=== PATIENT | female | born 1970 | race Two or more races ===

== ENCOUNTER 2016-07-11 23:59 | Inpatient (IN) | payer MEDICAID ==
[~2016-07-11] VITALS: Ht 147.3 cm; Wt 47.6 kg
[2016-07-12] VITALS (9 sets, daily range): BP systolic 105–120; BP diastolic 48–66
[2016-07-12] MEDS ORDERED: Solu-MEDROL 125mg Inj IVP ONE (00:30)
[2016-07-12] MEDS ORDERED: NS 1000ml 1,400 ML IVLG ONE (00:30)
[2016-07-12] MEDS ORDERED: Ipratropium 0.02% Inh Soln 2.5ml UD HHN ONE (00:30)
[2016-07-12] MEDS ORDERED: Albuterol ud Inhalation HHN ONE (00:30)
--- NOTE | 2016-07-12 00:33 | Emergency Room Report ---
History of Present Illness General Chief Complaint: Dyspnea/Respdistress Source: Patient Present Illness HPI Is a 45-year-old female with history of hypothyroidism. She presents with a cough and shortness of breath. Onset for last 8 days. fever in the last 2 days. Now worsening. Coughing is productive of sputum, whitish in nature. Worse with exertion and inspiration. Worse with lying flat. Nothing made it better. Never had this problem before. Allergies: Coded Allergies: No Known Allergies (Unverified , 07/12/16) Patient History Past Medical History: see triage record, old chart reviewed Past Surgical History: none Pertinent Family History: none Social History: Denies: smoking Now: No Immunizations: other Reviewed Nursing Documentation: PMH: Agreed, PSxH: Agreed Review of Systems Constitutional: Reports: fever, malaise, weakness Eye: Denies: blurred vision, eye pain ENT: Denies: ear pain, nose congestion, throat swelling Respiratory: Reports: cough, shortness of breath Cardiovascular: Denies: chest pain, palpitations Gastrointestinal: Denies: abdominal pain, diarrhea, nausea, vomiting Musculoskeletal: Denies: back pain, joint pain Skin: Denies: rash Neurological: Denies: headache, numbness Endocrine: Denies: increased thirst, increased urine Hematologic/Lymphatic: Denies: easy bruising All Other Systems: negative except mentioned in HPI Physical Exam Vital Signs Date Time Temp Pulse Resp B/P Pulse Ox O2 Delivery O2 Flow Rate FiO2 07/12/16 00:04 99.9 120 18 104/48 89 Room Air vitals with fever and hypoxia Sp02 EP Interpretation: abnormal General Appearance: moderate distress, thin Head: normocephalic, atraumatic Eyes: bilateral eye EOMI, bilateral eye PERRL ENT: hearing grossly normal, normal pharynx Neck: full range of motion, supple, no meningismus Respiratory: chest non-tender, decreased breath sounds, accessory muscle use, crackles, wheezing Cardiovascular #1: regular rate, rhythm, no murmur Gastrointestinal: normal bowel sounds, non tender, no mass, no organomegaly, no bruit, non-distended Musculoskeletal: back normal, gait/station normal, normal range of motion Neurologic: alert, oriented x3 Psychiatric: mood/affect normal Skin: warm/dry Procedures Critical Care Time Critical Care Time Critical care is mandated in this patient who presented with sepsis from pneumonia. Patient require my urgent intervention to attenuate the risks of metabolic collapse which may lead to cardiovascular collapse and . Critical care time is 35 minutes excluding any reportable procedure. Critical care time included evaluation, multiple reevaluation, looking at old charts, interpreting laboratory and diagnostic data, discussing case with patient and family and consultants, and charting. Medical Decision Making Diagnostic Impression: Primary Impression: Acute respiratory failure with hypoxemia Additional Impressions: Sepsis Qualified Codes: A41.9 - Sepsis, unspecified organism Pneumonia Qualified Codes: J18.9 - Pneumonia, unspecified organism ER Course She with respiratory distress secondary to sepsis from pneumonia. Clinical course concerning for influenza-like illness complicated by pneumonia. I also cover for MRSA with vancomycin. Patient feeling better now. We'll admit for IV antibiotics and monitoring. Laboratory Tests Test 07/12/16 00:39 07/12/16 01:30 White Blood Count 21.2 K/UL (4.8-10.8) H Red Blood Count 3.95 M/UL (4.20-5.40) L Hemoglobin 11.5 G/DL (12.0-16.0) L Hematocrit 34.2 % (37.0-47.0) L Mean Corpuscular Volume 87 FL (80-99) Mean Corpuscular Hemoglobin 29.2 PG (27.0-31.0) Mean Corpuscular Hemoglobin Concent 33.7 G/DL (32.0-36.0) Red Cell Distribution Width 14.2 % (11.6-14.8) Platelet Count 299 K/UL (150-450) Mean Platelet Volume 7.1 FL (6.5-10.1) Neutrophils (%) (Auto) % (45.0-75.0) Lymphocytes (%) (Auto) % (20.0-45.0) Monocytes (%) (Auto) % (1.0-10.0) Eosinophils (%) (Auto) % (0.0-3.0) Basophils (%) (Auto) % (0.0-2.0) Neutrophils % (Manual) Pending Lymphocytes % (Manual) Pending Platelet Estimate Pending Platelet Morphology Pending Prothrombin Time 10.1 SEC (9.30-11.50) Prothromb Time International Ratio 1.0 (0.9-1.1) Activated Partial Thromboplast Time 26 SEC (23-33) Sodium Level 139 mEQ/L (135-145) Potassium Level 3.3 mEQ/L (3.4-4.9) L Chloride Level 99 mEQ/L (98-107) Carbon Dioxide Level 22 mEQ/L (20-30) Anion Gap 18 (5-15) H Blood Urea Nitrogen 11 mg/dL (7-23) Creatinine 0.6 mg/dL (0.5-0.9) Estimat Glomerular Filtration Rate > 60 mL/min (>60) Glucose Level 144 mg/dL (74-106) H Lactic Acid Level 0.90 mmol/L (0.66-2.22) Calcium Level 8.4 mg/dL (8.6-10.2) L Total Bilirubin 0.4 mg/dL (0.0-1.2) Aspartate Amino Transf (AST/SGOT) 39 U/L (5-40) Alanine Aminotransferase (ALT/SGPT) 40 U/L (3-33) H Alkaline Phosphatase 150 U/L (35-104) H Troponin I < 0.30 ng/mL (<=0.30) Total Protein 7.0 g/dL (6.6-8.7) Albumin 2.8 g/dL (3.5-5.2) L Globulin 4.2 g/dL Albumin/Globulin Ratio 0.6 (1.0-2.7) L Urine Color Pale yellow Urine Appearance Clear Urine pH 6.5 (4.5-8.0) Urine Specific [place] 1.005 (1.005-1.035) Urine Protein Negative (NEGATIVE) Urine Glucose (UA) Negative (NEGATIVE) Urine Ketones 3+ (NEGATIVE) H Urine Occult Blood Negative (NEGATIVE) Urine Nitrite Negative (NEGATIVE) Urine Bilirubin Negative (NEGATIVE) Urine Urobilinogen Normal MG/DL (0.0-1.0) Urine Leukocyte Esterase Negative (NEGATIVE) Lab Results Impression labs with leukocytosis. EKG Diagnostic Results Rate: normal, tachycardiac Rhythm: NSR ST Segments: no acute changes Rhythm Strip Diag. Results EP Interpretation: yes Rate: 100 Rhythm: NSR, no PVC's, no ectopy Chest X-Ray Diagnostic Results EP Interpretation: Yes Findings: no effusion, no pneumothorax, other - Multilobar infiltritrates Number of Views: 1 Last Vital Signs Date Time Temp Pulse Resp B/P Pulse Ox O2 Delivery O2 Flow Rate FiO2 1/27/17 00:04 99.9 120 18 104/48 89 Room Air Status: improved Disposition: ADMITTED INPATIENT Condition: Serious ULISES REESE M.D. Jul 12, 2016 00:33
[2016-07-12 01:05] LABS: MEAN CORPUSCULAR HEMOGLOBIN 29.2 PG (27.0-31.0); MEAN CORPUSCULAR HGB CONC 33.7 G/DL (32.0-36.0); MEAN CORPUSCULAR VOLUME 87 FL (80-99); MEAN PLATELET VOLUME 7.1 FL (6.5-10.1); PLATELET COUNT 299 K/UL (150-450); RED BLOOD COUNT 3.95 M/UL (4.20-5.40); RED CELL DISTRIBUTION WIDTH 14.2 % (11.6-14.8); WHITE BLOOD COUNT 21.2 K/UL (4.8-10.8)
[2016-07-12 01:13] LABS: PROTHROMBIN TIME 10.1 SEC (9.30-11.50)
[2016-07-12 01:20] LABS: TROPONIN I < 0.30 ng/mL (<=0.30)
[2016-07-12 01:23] LABS: ALANINE AMINOTRANSFERASE 40 U/L (3-33); ALBUMIN/GLOBULIN RATIO 0.6 (1.0-2.7); ANION GAP 18 (5-15); ASPARTATE AMINO TRANSFERASE 39 U/L (5-40); CALCIUM 8.4 mg/dL (8.6-10.2); CARBON DIOXIDE 22 mEQ/L (20-30); CHLORIDE 99 mEQ/L (98-107); CREATININE 0.6 mg/dL (0.5-0.9); GLOMERULAR FILTRATION RATE > 60 mL/min (>60); HEMOLYSIS 3; POTASSIUM 3.3 mEQ/L (3.4-4.9); SODIUM 139 mEQ/L (135-145)
[2016-07-12] MEDS ORDERED: Vancomycin 1 GM in NS 275 ML IVPB ONE (01:45)
[2016-07-12] MEDS ORDERED: cefTRIAXone 1 GM in NS 55 ML IVPB ONE (01:45)
[2016-07-12] MEDS ORDERED: Azithromycin 250mg tab ORAL ONE (01:45)
[2016-07-12 01:49] LABS: APPEARANCE,URINE CLEAR; KETONES,URINE 3+ (NEGATIVE); LEUKOCYTE ESTERASE ,URINE NEGATIVE (NEGATIVE); NITRITE,URINE NEGATIVE (NEGATIVE); PH,URINE 6.5 (4.5-8.0); UROBILINOGEN,URINE NORMAL MG/DL (0.0-1.0)
[2016-07-12 01:50] LABS: PROTEIN,URINE NEGATIVE (NEGATIVE)
[2016-07-12] MEDS ORDERED: Vancomycin 1gm inj IVPB ONE (03:29)
[2016-07-12] MEDS ORDERED: LEVOTHYROXINE100 MCG ORAL (04:01)
[2016-07-12 05:08] LABS: BAND NEUTROPHILS % (MANUAL) 5 % (0-8); LYMPHOCYTES % (MANUAL) 10 % (20-45); NEUTROPHILS % (MANUAL) 78 % (45-75); TOTAL CELLS COUNTED 100
[2016-07-12 05:09] LABS: BASOPHILS % (MANUAL) 0 % (0-2); EOSINOPHILS % (MANUAL) 0 % (0-3); PLATELET ESTIMATE ADEQUATE; PLATELET MORPHOLOGY NORMAL
[2016-07-12] MEDS ORDERED: Miralax 17gm pkt ORAL PRN (06:00)
[2016-07-12] MEDS ORDERED: Nitroglycerin Subl 0.4mg tab (Bottle Of 25) SL PRN (06:00)
[2016-07-12] MEDS ORDERED: DuoNeb 0.5-3(2.5)mg/3ml neb HHN PRN (06:00)
[2016-07-12] MEDS ORDERED: Mylanta II UD 30ml ORAL PRN (06:00)
[2016-07-12] MEDS: Promethazine/Codeine 5ml UD ORAL PRN (08:30)
[2016-07-12] MEDS: Heparin 5000 units/ml inj SUBQ SCH ×2 (08:34→20:53)
[2016-07-12] MEDS: Cefepime HCl 1 GM in D5W 55 ML IV SCH ×2 (08:35→20:54)
--- NOTE | 2016-07-12 13:56 | Infectious Diseases Prog Note ---
Assessment/Plan Problems: (1) CAP (community acquired pneumonia) Assessment & Plan: failed outpatient treatment, with levaquin and zithromax, will start vancomycin and zosyn, and screen for influenza (2) Sepsis Assessment & Plan: due to pneumonia, will start vancomycin and zosyn empirically for now, and send blood culture (3) Diabetes mellitus Assessment & Plan: recommend tight glycemic control to keep blood glucose between 80-120 Subjective Allergies: Coded Allergies: No Known Allergies (Unverified , 07/12/16) Objective Vital Signs Last 24 Hour Vital Signs Date Time Temp Pulse Resp B/P Pulse Ox O2 Delivery O2 Flow Rate FiO2 07/12/16 11:30 97.7 114 20 116/64 93 07/12/16 11:20 102 18 89 Nasal Cannula 3.0 32 07/12/16 11:20 104 18 94 Nasal Cannula 3.0 32 07/12/16 08:25 107 18 91 Nasal Cannula 3.0 32 07/12/16 08:25 107 18 93 Nasal Cannula 3.0 32 07/12/16 08:16 97.7 108 18 109/64 94 Room Air 07/12/16 04:40 97.7 105 18 113/65 92 Nasal Cannula 2.0 07/12/16 04:05 98.2 99 16 120/57 100 Nasal Cannula 3.0 07/12/16 04:00 98.5 99 16 120/57 100 Nasal Cannula 3.0 07/12/16 04:00 97.7 105 18 113/65 92 Nasal Cannula 2.0 07/12/16 03:00 98 18 118/55 99 Nasal Cannula 3.0 07/12/16 02:00 98.2 105 18 105/50 98 Nasal Cannula 3.0 07/12/16 00:49 116 19 99 Nasal Cannula 2.0 07/12/16 00:39 116 26 96 Nasal Cannula 2.0 07/12/16 00:38 115 26 Nasal Cannula 2.0 07/12/16 00:15 110 18 Nasal Cannula 3.0 07/12/16 00:15 98.2 110 18 110/48 99 Nasal Cannula 3.0 07/12/16 00:04 99.9 120 18 104/48 89 Room Air Height (Feet): 4 Height (Inches): 10.00 Weight (Pounds): 105 Laboratory Tests Test 07/12/16 00:39 07/12/16 01:30 07/12/16 09:00 White Blood Count 21.2 K/UL (4.8-10.8) H Red Blood Count 3.95 M/UL (4.20-5.40) L Hemoglobin 11.5 G/DL (12.0-16.0) L Hematocrit 34.2 % (37.0-47.0) L Mean Corpuscular Volume 87 FL (80-99) Mean Corpuscular Hemoglobin 29.2 PG (27.0-31.0) Mean Corpuscular Hemoglobin Concent 33.7 G/DL (32.0-36.0) Red Cell Distribution Width 14.2 % (11.6-14.8) Platelet Count 299 K/UL (150-450) Mean Platelet Volume 7.1 FL (6.5-10.1) Neutrophils (%) (Auto) % (45.0-75.0) Lymphocytes (%) (Auto) % (20.0-45.0) Monocytes (%) (Auto) % (1.0-10.0) Eosinophils (%) (Auto) % (0.0-3.0) Basophils (%) (Auto) % (0.0-2.0) Differential Total Cells Counted 100 Neutrophils % (Manual) 78 % (45-75) H Lymphocytes % (Manual) 10 % (20-45) L Monocytes % (Manual) 7 % (1-10) Eosinophils % (Manual) 0 % (0-3) Basophils % (Manual) 0 % (0-2) Band Neutrophils 5 % (0-8) Platelet Estimate Adequate Platelet Morphology Normal Red Blood Cell Morphology Normal Prothrombin Time 10.1 SEC (9.30-11.50) Prothromb Time International Ratio 1.0 (0.9-1.1) Activated Partial Thromboplast Time 26 SEC (23-33) Sodium Level 139 mEQ/L (135-145) Potassium Level 3.3 mEQ/L (3.4-4.9) L Chloride Level 99 mEQ/L (98-107) Carbon Dioxide Level 22 mEQ/L (20-30) Anion Gap 18 (5-15) H Blood Urea Nitrogen 11 mg/dL (7-23) Creatinine 0.6 mg/dL (0.5-0.9) Estimat Glomerular Filtration Rate > 60 mL/min (>60) Glucose Level 144 mg/dL (74-106) H Lactic Acid Level 0.90 mmol/L (0.66-2.22) Calcium Level 8.4 mg/dL (8.6-10.2) L Total Bilirubin 0.4 mg/dL (0.0-1.2) Aspartate Amino Transf (AST/SGOT) 39 U/L (5-40) Alanine Aminotransferase (ALT/SGPT) 40 U/L (3-33) H Alkaline Phosphatase 150 U/L (35-104) H Troponin I < 0.30 ng/mL (<=0.30) Total Protein 7.0 g/dL (6.6-8.7) Albumin 2.8 g/dL (3.5-5.2) L Globulin 4.2 g/dL Albumin/Globulin Ratio 0.6 (1.0-2.7) L Urine Color Pale yellow Urine Appearance Clear Urine pH 6.5 (4.5-8.0) Urine Specific [place] 1.005 (1.005-1.035) Urine Protein Negative (NEGATIVE) Urine Glucose (UA) Negative (NEGATIVE) Urine Ketones 3+ (NEGATIVE) H Urine Occult Blood Negative (NEGATIVE) Urine Nitrite Negative (NEGATIVE) Urine Bilirubin Negative (NEGATIVE) Urine Urobilinogen Normal MG/DL (0.0-1.0) Urine Leukocyte Esterase Negative (NEGATIVE) Urine Legionella Antigen Pending Current Medications Medications (Trade) Dose Ordered Sig/Richar Route PRN Reason Start Time Stop Time Status Last Admin Dose Admin Acetaminophen (Tylenol) 650 mg Q4H PRN ORAL fever 07/12/16 06:00 08/11/16 05:59 Al Hydroxide/Mg Hydroxide (Mylanta II) 30 ml Q6H PRN ORAL dyspepsia 07/12/16 06:00 08/11/16 05:59 Albuterol/ Ipratropium 3 ml 3 ml Q4H PRN HHN Shortness of Breath 07/12/16 06:00 07/17/16 05:59 Cefepime HCl/ Dextrose (Maxipime/D5W) 55 ml @ 110 mls/hr EVERY 12 HOURS IV 07/12/16 09:00 07/19/16 08:59 07/12/16 08:35 Heparin Sodium (Porcine) (Heparin 5000 units/ml) 5,000 units EVERY 12 HOURS SUBQ 07/12/16 09:00 08/11/16 08:59 07/12/16 08:34 Levothyroxine Sodium (Synthroid) 100 mcg DAILY@0630 ORAL 07/12/16 06:30 08/11/16 06:29 07/12/16 06:26 Nitroglycerin (Ntg) 0.4 mg Q5M PRN SL Prn Chest Pain 07/12/16 06:00 08/11/16 05:59 Ondansetron HCl (Zofran) 4 mg Q6H PRN IVP Nausea & Vomiting 07/12/16 06:00 08/11/16 05:59 Polyethylene Glycol (Miralax) 17 gm DAILYPRN PRN ORAL Constipation 07/12/16 06:00 08/11/16 05:59 Promethazine HCl/ Codeine (Phenergan with Codeine) 5 ml Q4H PRN ORAL For Cough 07/12/16 06:00 08/11/16 05:59 07/12/16 08:30 Temazepam (Restoril) 15 mg HSPRN PRN ORAL Insomnia 07/12/16 06:00 07/19/16 05:59 Italo Nation M.D. Jul 12, 2016 13:56
--- NOTE | 2016-07-12 14:56 | Consultation ---
History of Present Illness General Date patient seen: Jul 12, 2016 Chief Complaint: Dyspnea/Respdistress Referring physician: Dr. Horner Reason for Consultation: dyspnea Present Illness HPI 45-year-old female with history of hypothyroidism presents with a cough and shortness of breath. Onset for last 8 days an fever in the last 2 days. Coughing is productive of whitish sputum, whitish in nature. Pt had a cxr in ER showing LLL infiltrate therefore she was admitted for further w/u. Allergies: Coded Allergies: No Known Allergies (Unverified , 07/12/16) Medication History Scheduled Levothyroxine Sodium* (Levothyroxine Sodium*), 100 MCG ORAL DAILY, (Reported) Patient History Healthcare decision maker Resuscitation status Full Code Advanced Directive on File Review of Systems Constitutional: Reports: no symptoms Eye: Reports: no symptoms ENT: Reports: no symptoms Respiratory: Reports: no symptoms Physical Exam General Appearance: WD/WN Lines, tubes and drains: peripheral HEENT: normocephalic, atraumatic Neck: non-tender, normal alignment Respiratory/Chest: chest wall non-tender, lungs clear Abdomen: normal bowel sounds, non tender, hyperactive bowel sounds Last 24 Hour Vital Signs Date Time Temp Pulse Resp B/P Pulse Ox O2 Delivery O2 Flow Rate FiO2 07/12/16 11:30 97.7 114 20 116/64 93 07/12/16 11:20 102 18 89 Nasal Cannula 3.0 32 07/12/16 11:20 104 18 94 Nasal Cannula 3.0 32 07/12/16 08:25 107 18 91 Nasal Cannula 3.0 32 07/12/16 08:25 107 18 93 Nasal Cannula 3.0 32 07/12/16 08:16 97.7 108 18 109/64 94 Room Air 07/12/16 04:40 97.7 105 18 113/65 92 Nasal Cannula 2.0 07/12/16 04:05 98.2 99 16 120/57 100 Nasal Cannula 3.0 07/12/16 04:00 98.5 99 16 120/57 100 Nasal Cannula 3.0 07/12/16 04:00 97.7 105 18 113/65 92 Nasal Cannula 2.0 07/12/16 03:00 98 18 118/55 99 Nasal Cannula 3.0 07/12/16 02:00 98.2 105 18 105/50 98 Nasal Cannula 3.0 07/12/16 00:49 116 19 99 Nasal Cannula 2.0 07/12/16 00:39 116 26 96 Nasal Cannula 2.0 07/12/16 00:38 115 26 Nasal Cannula 2.0 07/12/16 00:15 110 18 Nasal Cannula 3.0 07/12/16 00:15 98.2 110 18 110/48 99 Nasal Cannula 3.0 07/12/16 00:04 99.9 120 18 104/48 89 Room Air Intake and Output 07/11/16 07/12/16 19:00 07:00 Intake Total 1455 ml Output Total 0 ml Balance 1455 ml IV Total 1455 ml Output Urine Total 0 ml # Voids 1 Laboratory Tests Test 07/12/16 00:39 07/12/16 01:30 07/12/16 09:00 White Blood Count 21.2 K/UL (4.8-10.8) H Red Blood Count 3.95 M/UL (4.20-5.40) L Hemoglobin 11.5 G/DL (12.0-16.0) L Hematocrit 34.2 % (37.0-47.0) L Mean Corpuscular Volume 87 FL (80-99) Mean Corpuscular Hemoglobin 29.2 PG (27.0-31.0) Mean Corpuscular Hemoglobin Concent 33.7 G/DL (32.0-36.0) Red Cell Distribution Width 14.2 % (11.6-14.8) Platelet Count 299 K/UL (150-450) Mean Platelet Volume 7.1 FL (6.5-10.1) Neutrophils (%) (Auto) % (45.0-75.0) Lymphocytes (%) (Auto) % (20.0-45.0) Monocytes (%) (Auto) % (1.0-10.0) Eosinophils (%) (Auto) % (0.0-3.0) Basophils (%) (Auto) % (0.0-2.0) Differential Total Cells Counted 100 Neutrophils % (Manual) 78 % (45-75) H Lymphocytes % (Manual) 10 % (20-45) L Monocytes % (Manual) 7 % (1-10) Eosinophils % (Manual) 0 % (0-3) Basophils % (Manual) 0 % (0-2) Band Neutrophils 5 % (0-8) Platelet Estimate Adequate Platelet Morphology Normal Red Blood Cell Morphology Normal Prothrombin Time 10.1 SEC (9.30-11.50) Prothromb Time International Ratio 1.0 (0.9-1.1) Activated Partial Thromboplast Time 26 SEC (23-33) Sodium Level 139 mEQ/L (135-145) Potassium Level 3.3 mEQ/L (3.4-4.9) L Chloride Level 99 mEQ/L (98-107) Carbon Dioxide Level 22 mEQ/L (20-30) Anion Gap 18 (5-15) H Blood Urea Nitrogen 11 mg/dL (7-23) Creatinine 0.6 mg/dL (0.5-0.9) Estimat Glomerular Filtration Rate > 60 mL/min (>60) Glucose Level 144 mg/dL (74-106) H Lactic Acid Level 0.90 mmol/L (0.66-2.22) Calcium Level 8.4 mg/dL (8.6-10.2) L Total Bilirubin 0.4 mg/dL (0.0-1.2) Aspartate Amino Transf (AST/SGOT) 39 U/L (5-40) Alanine Aminotransferase (ALT/SGPT) 40 U/L (3-33) H Alkaline Phosphatase 150 U/L (35-104) H Troponin I < 0.30 ng/mL (<=0.30) Total Protein 7.0 g/dL (6.6-8.7) Albumin 2.8 g/dL (3.5-5.2) L Globulin 4.2 g/dL Albumin/Globulin Ratio 0.6 (1.0-2.7) L Urine Color Pale yellow Urine Appearance Clear Urine pH 6.5 (4.5-8.0) Urine Specific [place] 1.005 (1.005-1.035) Urine Protein Negative (NEGATIVE) Urine Glucose (UA) Negative (NEGATIVE) Urine Ketones 3+ (NEGATIVE) H Urine Occult Blood Negative (NEGATIVE) Urine Nitrite Negative (NEGATIVE) Urine Bilirubin Negative (NEGATIVE) Urine Urobilinogen Normal MG/DL (0.0-1.0) Urine Leukocyte Esterase Negative (NEGATIVE) Urine Legionella Antigen Pending Height (Feet): 4 Height (Inches): 10.00 Weight (Pounds): 105 Medications Current Medications Medications (Trade) Dose Ordered Sig/Richar Route PRN Reason Start Time Stop Time Status Last Admin Dose Admin Acetaminophen (Tylenol) 650 mg Q4H PRN ORAL fever 07/12/16 06:00 08/11/16 05:59 Al Hydroxide/Mg Hydroxide (Mylanta II) 30 ml Q6H PRN ORAL dyspepsia 07/12/16 06:00 08/11/16 05:59 Albuterol/ Ipratropium 3 ml 3 ml Q4H PRN HHN Shortness of Breath 07/12/16 06:00 07/17/16 05:59 Cefepime HCl/ Dextrose (Maxipime/D5W) 55 ml @ 110 mls/hr EVERY 12 HOURS IV 07/12/16 09:00 07/19/16 08:59 07/12/16 08:35 Heparin Sodium (Porcine) (Heparin 5000 units/ml) 5,000 units EVERY 12 HOURS SUBQ 07/12/16 09:00 08/11/16 08:59 07/12/16 08:34 Levothyroxine Sodium 100 mcg 100 mcg DAILY@0630 ORAL 07/12/16 06:30 08/11/16 06:29 07/12/16 06:26 Nitroglycerin (Ntg) 0.4 mg Q5M PRN SL Prn Chest Pain 07/12/16 06:00 08/11/16 05:59 Ondansetron HCl (Zofran) 4 mg Q6H PRN IVP Nausea & Vomiting 07/12/16 06:00 08/11/16 05:59 Piperacillin Sod/ Tazobactam Sod/ Dextrose (Zosyn/D5W) 110 ml @ 27.5 mls/hr Q8H IVPB 07/12/16 18:00 07/19/16 17:59 Polyethylene Glycol (Miralax) 17 gm DAILYPRN PRN ORAL Constipation 07/12/16 06:00 08/11/16 05:59 Promethazine HCl/ Codeine (Phenergan with Codeine) 5 ml Q4H PRN ORAL For Cough 07/12/16 06:00 08/11/16 05:59 07/12/16 08:30 Temazepam (Restoril) 15 mg HSPRN PRN ORAL Insomnia 07/12/16 06:00 07/19/16 05:59 Vancomycin HCl 1 gm/Dextrose 275 ml @ 183.708 mls/hr Q12H IVPB 07/12/16 16:00 07/17/16 15:59 Assessment/Plan Problem List: (1) CAP (community acquired pneumonia) ICD Codes: J18.9 - Pneumonia, unspecified organism SNOMED: 906702516 (2) Sepsis ICD Codes: A41.9 - Sepsis, unspecified organism SNOMED: 99350371 Assessment/Plan IV antibioitcs check sputum respiratory treatment ct chest b/o calcified nodules KATHIA CATES Jul 12, 2016 14:56
[2016-07-12] MEDS: Vancomycin 1 GM in D5W 275 ML IVPB SCH (15:37)
[2016-07-12] MEDS: Piperacillin/Tazobactam 3.375 GM in D5W 110 ML IVPB SCH (17:16)
--- NOTE | 2016-07-12 21:07 | History and Physical Report ---
DATE OF ADMISSION: 07/12/2016 TIME: At 4 p.m. ATTENDING PHYSICIAN: Jose Horner D.O. CONSULTANTS: 1. Italo Nation M.D. 2. Concepcion Mccarthy M.D. CHIEF COMPLAINT: Shortness of breath, pneumonia, and sepsis. HISTORY OF PRESENT ILLNESS: This is a 45-year-old female from home, presented with increased shortness of breath, coughing x1 week, diagnosed with pneumonia and sepsis, admitted to the medical floor for further treatment. Currently, slightly short of breath, O2 through NC, . PAST MEDICAL HISTORY: Include hypothyroid. PAST SURGICAL HISTORY: None. ALLERGIES: Denies. MEDICATIONS: Include Zosyn, vancomycin, cefepime, albuterol, Tylenol, Zofran, temazepam, nitroglycerin, and promethazine. SOCIAL HISTORY: No smoking. No alcohol. No intravenous drug use. FAMILY HISTORY: Noncontributory. REVIEW OF SYSTEMS: No chest pain. Slight shortness of breath. No nausea, vomiting, or diarrhea. PHYSICAL EXAMINATION: GENERAL: Calm in bed, oriented x3, slight short of breath. VITAL SIGNS: Temperature is 97 degrees, pulse 114, respirations 20, and blood pressure 116/64. CARDIOVASCULAR: No murmur. LUNGS: Poor exchange. ABDOMEN: Positive bowel sounds. Nontender and nondistended. EXTREMITIES: No cyanosis, clubbing, or edema. NEUROLOGIC: The patient moves all extremities. Slightly weak. LABORATORY DATA: Laboratory shows white count of 21, hemoglobin and hematocrit 11 and 34, and platelets 299,000. Potassium 3.3, glucose 144. Albumin is 2.8. INR is 1.0. Urinalysis, 3+ ketones. ASSESSMENT: 1. Pneumonia. 2. Sepsis. 3. Cough. 4. Shortness of breath. 5. Anemia. 6. Diabetes. 7. Hypothyroid. PLAN: Continue premedications, O2, and pulmonary treatment. Antibiotics per Infectious Diseases. OT/PT. Dietary evaluation. CBC and BMP in the morning. We will continue to follow this patient. Jose Horner D.O. DR: MONCHO JOB#: [id number] CC:
--- NOTE | 2016-07-12 23:08 | Consultation ---
DATE OF CONSULTATION: REQUESTING PHYSICIAN: Jose Horner D.O. REASONS FOR CONSULTATION: Pneumonia with outpatient antibiotics treatment failure, recommendation for antibiotic therapy. HISTORY OF PRESENT ILLNESS: The patient is a 45-year-old, female with history of hypothyroidism who developed cough and shortness of breath about eight days ago and was treated for pneumonia as an outpatient by two providers, one time she received Levaquin and the other time she received azithromycin. Symptoms did not improve, continued to have cough productive of red phlegm. She had shortness of breath which did worse with exertion and deep breaths. The patient never had any pneumonia in the past. Denied any recent travel or sick contacts. In the emergency room, she was found to have a fever of 99.9, saturating 89% on room air. She also has significant leukocytosis of 21.2. Chest x-ray showed multilobular infiltrates. So, I was consulted by the primary provider for antibiotics choice and further management. REVIEW OF SYSTEMS: A 12-point system review were all negative apart from the one I mentioned above in my History and Physical. PAST MEDICAL HISTORY: Significant for hypothyroidism. PAST SURGICAL HISTORY: Negative. MEDICATIONS: The patient received cefepime, vancomycin, and ceftriaxone in the emergency room. For the rest of the medications, please refer to MAR. ALLERGIES: She has no known drug allergy. 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 Denied using any drugs, tobacco, or alcohol. FAMILY HISTORY: Noncontributory. PHYSICAL EXAMINATION: VITAL SIGNS: Temperature 97.7, pulse 114, respirations 20, blood pressure 116/64, pulse oximetry 93% on three liters nasal cannula. GENERAL: Middle-aged female, up in bed, awake, alert, mildly coughing, not in distress. HEENT: Normocephalic and atraumatic. Pupils are reactive equally. Moist oral mucosa. No exudate. NECK: Supple. No lymphadenopathy. CARDIOVASCULAR: She is tachycardic. S1 and S2 normal. No gallop. LUNGS: Diminished breathing sounds on both lung [place] with mild wheezing on the left. Normal breathing efforts. ABDOMEN: Soft, nontender, and nondistended. Positive bowel sounds. No hepatosplenomegaly or ascites. EXTREMITIES: No edema or cyanosis. LABORATORY AND DIAGNOSTIC DATA: Showed white count of 21.2, hemoglobin of 11.5, and platelet count of 299,000. BUN of 11, creatinine of 0.6, ALT of 40, alkaline phosphatase 150. Urinalysis was negative for infection. Influenza screen test was negative. Imaging, chest x-ray showed multilobular infiltration. ASSESSMENT AND PLAN: 1. Community-acquired pneumonia. Failed outpatient treatment with Levaquin and Zithromax. We will start vancomycin and Zosyn. Screening for influenza is negative. We will monitor chest x-ray and symptoms closely. We will discontinue cefepime. 2. Sepsis due to pneumonia. We will start vancomycin and Zosyn empiric treatment and send blood culture. 3. Diabetes. Recommend tight glycemic control to keep blood glucose between 80 to 120. ID will continue to follow. Thank you for the consultation. Italo Nation M.D. DR: Diogenes JOB#: [id number] CC:
[2016-07-13] VITALS: BP 101/64
[2016-07-13] MEDS: Piperacillin/Tazobactam 3.375 GM in D5W 110 ML IVPB SCH ×3 (01:39→18:07)
[2016-07-13 04:00] VITALS: BP 97/63
[2016-07-13] MEDS: Vancomycin 1 GM in D5W 275 ML IVPB SCH ×2 (06:19→16:15)
[2016-07-13 07:30] LABS: ANION GAP 13 (5-15); CALCIUM 8.6 mg/dL (8.6-10.2); CARBON DIOXIDE 23 mEQ/L (20-30); CHLORIDE 107 mEQ/L (98-107); CREATININE 0.6 mg/dL (0.5-0.9); GLOMERULAR FILTRATION RATE > 60 mL/min (>60); HEMOLYSIS 2; POTASSIUM 3.4 mEQ/L (3.4-4.9); SODIUM 143 mEQ/L (135-145)
[2016-07-13 07:39] LABS: MEAN CORPUSCULAR HGB CONC 33.5 G/DL (32.0-36.0); MEAN CORPUSCULAR VOLUME 87 FL (80-99); MEAN PLATELET VOLUME 7.4 FL (6.5-10.1); PLATELET COUNT 357 K/UL (150-450); RED BLOOD COUNT 3.51 M/UL (4.20-5.40); RED CELL DISTRIBUTION WIDTH 13.9 % (11.6-14.8); WHITE BLOOD COUNT 19.9 K/UL (4.8-10.8)
[2016-07-13 07:47] LABS: ANION GAP 15 (5-15); CALCIUM 8.4 mg/dL (8.6-10.2); CARBON DIOXIDE 23 mEQ/L (20-30); CHLORIDE 106 mEQ/L (98-107); CREATININE 0.6 mg/dL (0.5-0.9); GLOMERULAR FILTRATION RATE > 60 mL/min (>60); HEMOLYSIS 6; PHOSPHORUS 3.9 mg/dL (2.5-4.8); POTASSIUM 3.8 mEQ/L (3.4-4.9); SODIUM 144 mEQ/L (135-145)
[2016-07-13 08:11] VITALS: BP 111/75
[2016-07-13] MEDS: Cefepime HCl 1 GM in D5W 55 ML IV SCH (08:29)
[2016-07-13] MEDS: Heparin 5000 units/ml inj SUBQ SCH ×2 (08:32→20:10)
--- NOTE | 2016-07-13 08:56 | General Progress Note ---
Assessment/Plan Problem List: (1) Nosocomial pneumonia ICD Codes: J18.9 - Pneumonia, unspecified organism SNOMED: 187786641 (2) Sepsis ICD Codes: A41.9 - Sepsis, unspecified organism SNOMED: 75791165 (3) CAP (community acquired pneumonia) ICD Codes: J18.9 - Pneumonia, unspecified organism SNOMED: 544945053 (4) Diabetes mellitus ICD Codes: E11.9 - Type 2 diabetes mellitus without complications SNOMED: 71565410 Status: stable, progressing, tolerating diet Assessment/Plan ot pt diet abx cbc bmp am Subjective Constitutional: Reports: weakness Respiratory: Reports: cough, shortness of breath Allergies: Coded Allergies: No Known Allergies (Unverified , 07/12/16) All Systems: reviewed and negative except above Objective Last 24 Hour Vital Signs Date Time Temp Pulse Resp B/P Pulse Ox O2 Delivery O2 Flow Rate FiO2 07/13/16 08:11 97.7 89 21 111/75 96 Nasal Cannula 2.0 07/13/16 07:20 83 18 91 Nasal Cannula 3.0 32 07/13/16 07:20 Nasal Cannula 3.0 32 07/13/16 04:00 96.4 73 20 97/63 93 Nasal Cannula 2.0 07/13/16 03:13 99 18 91 Nasal Cannula 3.0 32 07/13/16 03:12 98 18 87 Nasal Cannula 3.0 32 07/13/16 00:00 97.2 74 18 101/64 94 Nasal Cannula 2.0 07/12/16 23:41 99 18 94 Nasal Cannula 3.0 32 07/12/16 23:41 100 18 95 Nasal Cannula 3.0 32 07/12/16 20:00 98.6 80 17 110/64 95 Room Air 07/12/16 19:18 97 18 95 Nasal Cannula 3.0 32 07/12/16 19:18 95 18 97 Nasal Cannula 3.0 32 07/12/16 16:00 97.7 98 18 113/66 93 Room Air 07/12/16 15:38 97 18 89 Nasal Cannula 3.0 32 07/12/16 15:38 96 18 96 Nasal Cannula 3.0 32 07/12/16 11:30 97.7 114 20 116/64 93 07/12/16 11:20 102 18 89 Nasal Cannula 3.0 32 07/12/16 11:20 104 18 94 Nasal Cannula 3.0 32 Intake and Output 07/12/16 07/13/16 19:00 07:00 Intake Total 1602.50 ml 497.5 ml Output Total 2 ml Balance 1602.50 ml 495.5 ml Intake Oral 1200 ml 360 ml IV Total 402.50 ml 137.5 ml Output Urine Total 2 ml # Voids 3 3 # Bowel Movements 1 Laboratory Tests 07/12/16 09:00: Urine Legionella Antigen [Pending] 07/13/16 05:10: White Blood Count 19.9H, Red Blood Count 3.51L, Hemoglobin 10.2L, Hematocrit 30.5L, Mean Corpuscular Volume 87, Mean Corpuscular Hemoglobin 29.0, Mean Corpuscular Hemoglobin Concent 33.5, Red Cell Distribution Width 13.9, Platelet Count 357, Mean Platelet Volume 7.4, Neutrophils (%) (Auto) , Lymphocytes (%) ( Auto) , Monocytes (%) (Auto) , Eosinophils (%) (Auto) , Basophils (%) (Auto) , Neutrophils % (Manual) [Pending], Lymphocytes % (Manual) [Pending], Platelet Estimate [Pending], Platelet Morphology [Pending], Sodium Level 143, Potassium Level 3.4, Chloride Level 107, Carbon Dioxide Level 23, Anion Gap 13, Blood Urea Nitrogen 15, Creatinine 0.6, Estimat Glomerular Filtration Rate > 60, Glucose Level 141H, Calcium Level 8.6, Phosphorus Level 3.9, Albumin 2.7L Height (Feet): 4 Height (Inches): 10.00 Weight (Pounds): 105 General Appearance: alert EENT: normal ENT inspection Neck: normal alignment Cardiovascular: normal peripheral pulses, normal rate, regular rhythm Respiratory/Chest: chest wall non-tender, lungs clear, normal breath sounds Abdomen: normal bowel sounds, non tender, soft Extremities: normal inspection Edema: no edema noted Arm (L), no edema noted Arm (R), no edema noted Leg (L), no edema noted Leg (R), no edema noted Pedal (L), no edema noted Pedal (R), no edema noted Generalized Neurologic: responsive, motor weakness Skin: normal pigmentation, warm/dry NITIN WAGONER Jul 13, 2016 08:56
[2016-07-13 09:14] LABS: BAND NEUTROPHILS % (MANUAL) 0 % (0-8); BASOPHILS % (MANUAL) 0 % (0-2); EOSINOPHILS % (MANUAL) 1 % (0-3); LYMPHOCYTES % (MANUAL) 7 % (20-45); NEUTROPHILS % (MANUAL) 83 % (45-75); PLATELET ESTIMATE ADEQUATE; PLATELET MORPHOLOGY NORMAL; TOTAL CELLS COUNTED 100
--- NOTE | 2016-07-13 11:15 | Diagnostic Imaging Report ---
Indication: Chest pain Technique: Continuous helical transaxial imaging of the chest was obtained from the thoracic inlet to the upper abdomen after intravenous nonionic contrast administration. Coronal 2-D reformats were also obtained. Total Dose length Product (DLP): [address] Dose Index Volume (CTDIvol): 41, 8, 16 mGy Comparison: none Findings: There are patchy areas of consolidation some with cavitation noted throughout the lung prado. The largest area of involvement is the lingula. Several of the consolidative areas appear nodular. The main considerations are multifocal cavitary infection versus neoplasm. Clinical correlation is needed. Followup evaluation as clinically indicated. One might consider further evaluation with FDG PET CT. There is no adenopathy. The heart is unremarkable in appearance. A small hiatal hernia is present. The visualized upper abdomen is unremarkable. Impression: Patchy, nodular, cavitary areas of consolidation. The findings could reflect multifocal pneumonia especially atypical organism such as fungus and granulomatous disease. The possibility of multifocal neoplasm especially bronchoalveolar cell carcinoma and metastatic neoplasm are not excluded. Followup is recommended. Consider PET/CT.
[2016-07-13 11:33] VITALS: BP 121/71
[2016-07-13] MEDS ORDERED: NS 550ML IV ONE (13:20)
[2016-07-13] MEDS ORDERED: Tubing IV Secondary IV ONE (13:20)
--- NOTE | 2016-07-13 13:38 | Pulmonology Progress Note ---
Assessment/Plan Problems: (1) CAP (community acquired pneumonia) (2) Sepsis (3) Cavitary lesion of lung Assessment/Plan isolation ppd sputum for afb TB gold Subjective ROS Limited/Unobtainable: No Interval Events: feeling ok Allergies: Coded Allergies: No Known Allergies (Unverified , 07/12/16) Objective Last 24 Hour Vital Signs Date Time Temp Pulse Resp B/P Pulse Ox O2 Delivery O2 Flow Rate FiO2 07/13/16 11:33 97.9 92 20 121/71 95 Nasal Cannula 2.0 07/13/16 11:10 82 18 93 Nasal Cannula 3.0 32 07/13/16 11:10 84 18 93 Nasal Cannula 3.0 32 07/13/16 08:11 97.7 89 21 111/75 96 Nasal Cannula 2.0 07/13/16 07:20 83 18 91 Nasal Cannula 3.0 32 07/13/16 07:20 Nasal Cannula 3.0 32 07/13/16 04:00 96.4 73 20 97/63 93 Nasal Cannula 2.0 07/13/16 03:13 99 18 91 Nasal Cannula 3.0 32 07/13/16 03:12 98 18 87 Nasal Cannula 3.0 32 07/13/16 00:00 97.2 74 18 101/64 94 Nasal Cannula 2.0 07/12/16 23:41 99 18 94 Nasal Cannula 3.0 32 07/12/16 23:41 100 18 95 Nasal Cannula 3.0 32 07/12/16 20:00 98.6 80 17 110/64 95 Room Air 07/12/16 19:18 97 18 95 Nasal Cannula 3.0 32 07/12/16 19:18 95 18 97 Nasal Cannula 3.0 32 07/12/16 16:00 97.7 98 18 113/66 93 Room Air 07/12/16 15:38 97 18 89 Nasal Cannula 3.0 32 07/12/16 15:38 96 18 96 Nasal Cannula 3.0 32 Intake and Output 07/12/16 07/13/16 19:00 07:00 Intake Total 1602.50 ml 497.5 ml Output Total 2 ml Balance 1602.50 ml 495.5 ml Intake Oral 1200 ml 360 ml IV Total 402.50 ml 137.5 ml Output Urine Total 2 ml # Voids 3 3 # Bowel Movements 1 General Appearance: WD/WN HEENT: normocephalic, anicteric Respiratory/Chest: chest wall non-tender, lungs clear Cardiovascular: normal peripheral pulses, normal rate Abdomen: normal bowel sounds, soft, non tender Genitourinary: normal external genitalia Extremities: no clubbing Skin: no rash Microbiology Date/Time Source Procedure Growth Status 07/12/16 00:40 Blood Blood Culture - Preliminary NO GROWTH AFTER 24 HOURS Resulted 07/12/16 00:25 Blood Blood Culture - Preliminary NO GROWTH AFTER 24 HOURS Resulted 07/12/16 15:00 Sputum Gram Stain - Final Resulted 07/12/16 15:00 Sputum Sputum Culture Pending Resulted 07/12/16 14:50 Nasopharynx Influenza Types A,B Antigen (MARIYA) - Final Complete 07/12/16 09:00 Urine,Clean Catch Urine Culture - Preliminary NO GROWTH AFTER 24 HOURS Resulted Laboratory Tests 07/13/16 05:10: White Blood Count 19.9H, Red Blood Count 3.51L, Hemoglobin 10.2L, Hematocrit 30.5L, Mean Corpuscular Volume 87, Mean Corpuscular Hemoglobin 29.0, Mean Corpuscular Hemoglobin Concent 33.5, Red Cell Distribution Width 13.9, Platelet Count 357, Mean Platelet Volume 7.4, Neutrophils (%) (Auto) , Lymphocytes (%) ( Auto) , Monocytes (%) (Auto) , Eosinophils (%) (Auto) , Basophils (%) (Auto) , Differential Total Cells Counted 100, Neutrophils % (Manual) 83H, Lymphocytes % (Manual) 7L, Monocytes % (Manual) 9, Eosinophils % (Manual) 1, Basophils % ( Manual) 0, Band Neutrophils 0, Platelet Estimate Adequate, Platelet Morphology Normal, Red Blood Cell Morphology Normal, Sodium Level 143, Potassium Level 3.4 , Chloride Level 107, Carbon Dioxide Level 23, Anion Gap 13, Blood Urea Nitrogen 15, Creatinine 0.6, Estimat Glomerular Filtration Rate > 60, Glucose Level 141H, Calcium Level 8.6, Phosphorus Level 3.9, Albumin 2.7L Current Medications Medications (Trade) Dose Ordered Sig/Richar Route PRN Reason Start Time Stop Time Status Last Admin Dose Admin Acetaminophen (Tylenol) 650 mg Q4H PRN ORAL fever 07/12/16 06:00 08/11/16 05:59 Al Hydroxide/Mg Hydroxide (Mylanta II) 30 ml Q6H PRN ORAL dyspepsia 07/12/16 06:00 08/11/16 05:59 Albuterol/ Ipratropium 3 ml 3 ml Q4H PRN HHN Shortness of Breath 07/12/16 06:00 07/17/16 05:59 Cefepime HCl/ Dextrose (Maxipime/D5W) 55 ml @ 110 mls/hr EVERY 12 HOURS IV 07/12/16 09:00 07/19/16 08:59 07/13/16 08:29 Heparin Sodium (Porcine) (Heparin 5000 units/ml) 5,000 units EVERY 12 HOURS SUBQ 07/12/16 09:00 08/11/16 08:59 07/13/16 08:32 Levothyroxine Sodium 100 mcg 100 mcg DAILY@0630 ORAL 07/12/16 06:30 08/11/16 06:29 07/13/16 06:21 Nitroglycerin (Ntg) 0.4 mg Q5M PRN SL Prn Chest Pain 07/12/16 06:00 08/11/16 05:59 Ondansetron HCl (Zofran) 4 mg Q6H PRN IVP Nausea & Vomiting 07/12/16 06:00 08/11/16 05:59 Piperacillin Sod/ Tazobactam Sod/ Dextrose (Zosyn/D5W) 110 ml @ 27.5 mls/hr Q8H IVPB 07/12/16 18:00 07/19/16 17:59 07/13/16 10:21 Polyethylene Glycol (Miralax) 17 gm DAILYPRN PRN ORAL Constipation 07/12/16 06:00 08/11/16 05:59 Promethazine HCl/ Codeine (Phenergan with Codeine) 5 ml Q4H PRN ORAL For Cough 07/12/16 06:00 08/11/16 05:59 07/12/16 08:30 Temazepam (Restoril) 15 mg HSPRN PRN ORAL Insomnia 07/12/16 06:00 07/19/16 05:59 Vancomycin HCl 1 gm/Dextrose 275 ml @ 183.708 mls/hr Q12H IVPB 07/12/16 16:00 07/17/16 15:59 07/13/16 06:19 KATHIA CATES Jul 13, 2016 13:38
[2016-07-13 14:53] LABS: MEAN CORPUSCULAR HEMOGLOBIN 28.2 PG (27.0-31.0); MEAN CORPUSCULAR HGB CONC 32.2 G/DL (32.0-36.0); MEAN CORPUSCULAR VOLUME 87 FL (80-99); MEAN PLATELET VOLUME 6.7 FL (6.5-10.1); PLATELET COUNT 413 K/UL (150-450); RED BLOOD COUNT 3.89 M/UL (4.20-5.40); RED CELL DISTRIBUTION WIDTH 14.2 % (11.6-14.8); WHITE BLOOD COUNT 20.4 K/UL (4.8-10.8)
[2016-07-13] MEDS ORDERED: PPD Tuberculin Skin Test 5TU IDERMAL ONE (15:00)
[2016-07-13 15:50] VITALS: BP 109/68
[2016-07-13 16:36] LABS: BAND NEUTROPHILS % (MANUAL) 4 % (0-8); BASOPHILS % (MANUAL) 0 % (0-2); EOSINOPHILS % (MANUAL) 0 % (0-3); LYMPHOCYTES % (MANUAL) 7 % (20-45); NEUTROPHILS % (MANUAL) 85 % (45-75); PLATELET ESTIMATE ADEQUATE; PLATELET MORPHOLOGY NORMAL; TOTAL CELLS COUNTED 100
--- NOTE | 2016-07-13 16:51 | Infectious Diseases Prog Note ---
Assessment/Plan Problems: (1) CAP (community acquired pneumonia) Assessment & Plan: with multifocal cavitary lesions suspect septic emboli VS fungal VS atypical mycobacterium, VS mets , T spot is pending, fungal serology in progress, continue vancomycin and zosyn empirically for now , screening for influenza is negative. may need bronchoscopy OR lung biopsy from the lesions if work up is negative . will order echo to rule out vegetations . (2) Sepsis Assessment & Plan: due to pneumonia, continue vancomycin and zosyn empirically for now, await blood culture (3) Diabetes mellitus Assessment & Plan: recommend tight glycemic control to keep blood glucose between 80-120 Subjective Constitutional: Reports: fatigue Respiratory: Reports: dry cough Allergies: Coded Allergies: No Known Allergies (Unverified , 07/12/16) All Systems: reviewed and negative except above Objective Vital Signs Last 24 Hour Vital Signs Date Time Temp Pulse Resp B/P Pulse Ox O2 Delivery O2 Flow Rate FiO2 07/13/16 15:50 97.6 91 19 109/68 95 Nasal Cannula 2.0 07/13/16 14:40 81 18 92 Nasal Cannula 3.0 32 07/13/16 14:40 Nasal Cannula 3.0 32 07/13/16 11:33 97.9 92 20 121/71 95 Nasal Cannula 2.0 07/13/16 11:10 82 18 93 Nasal Cannula 3.0 32 07/13/16 11:10 84 18 93 Nasal Cannula 3.0 32 07/13/16 08:11 97.7 89 21 111/75 96 Nasal Cannula 2.0 07/13/16 07:20 83 18 91 Nasal Cannula 3.0 32 07/13/16 07:20 Nasal Cannula 3.0 32 07/13/16 04:00 96.4 73 20 97/63 93 Nasal Cannula 2.0 07/13/16 03:13 99 18 91 Nasal Cannula 3.0 32 07/13/16 03:12 98 18 87 Nasal Cannula 3.0 32 07/13/16 00:00 97.2 74 18 101/64 94 Nasal Cannula 2.0 07/12/16 23:41 99 18 94 Nasal Cannula 3.0 32 07/12/16 23:41 100 18 95 Nasal Cannula 3.0 32 07/12/16 20:00 98.6 80 17 110/64 95 Room Air 07/12/16 19:18 97 18 95 Nasal Cannula 3.0 32 07/12/16 19:18 95 18 97 Nasal Cannula 3.0 32 Height (Feet): 4 Height (Inches): 10.00 Weight (Pounds): 105 General Appearance: WD/WN, no acute distress HEENT: normocephalic, atraumatic, anicteric, mucous membranes moist Respiratory/Chest: chest wall non-tender, no respiratory distress, decreased breath sounds, crackles/rales Cardiovascular: normal peripheral pulses, normal rate, regular rhythm, no gallop/murmur, no JVD Abdomen: normal bowel sounds, soft, non tender, no organomegaly, non distended , no mass, no scars Extremities: no cyanosis, no clubbing Skin: no rash, no lesions, no ulcers Microbiology Date/Time Source Procedure Growth Status 07/12/16 00:40 Blood Blood Culture - Preliminary NO GROWTH AFTER 24 HOURS Resulted 07/12/16 00:25 Blood Blood Culture - Preliminary NO GROWTH AFTER 24 HOURS Resulted 07/12/16 15:00 Sputum Gram Stain - Final Resulted 07/12/16 15:00 Sputum Sputum Culture Pending Resulted 07/12/16 14:50 Nasopharynx Influenza Types A,B Antigen (MARIYA) - Final Complete 07/12/16 09:00 Urine,Clean Catch Urine Culture - Preliminary NO GROWTH AFTER 24 HOURS Resulted Laboratory Tests Test 07/13/16 05:10 07/13/16 13:50 White Blood Count 19.9 K/UL (4.8-10.8) H 20.4 K/UL (4.8-10.8) H Red Blood Count 3.51 M/UL (4.20-5.40) L 3.89 M/UL (4.20-5.40) L Hemoglobin 10.2 G/DL (12.0-16.0) L 11.0 G/DL (12.0-16.0) L Hematocrit 30.5 % (37.0-47.0) L 34.0 % (37.0-47.0) L Mean Corpuscular Volume 87 FL (80-99) 87 FL (80-99) Mean Corpuscular Hemoglobin 29.0 PG (27.0-31.0) 28.2 PG (27.0-31.0) Mean Corpuscular Hemoglobin Concent 33.5 G/DL (32.0-36.0) 32.2 G/DL (32.0-36.0) Red Cell Distribution Width 13.9 % (11.6-14.8) 14.2 % (11.6-14.8) Platelet Count 357 K/UL (150-450) 413 K/UL (150-450) Mean Platelet Volume 7.4 FL (6.5-10.1) 6.7 FL (6.5-10.1) Neutrophils (%) (Auto) % (45.0-75.0) % (45.0-75.0) Lymphocytes (%) (Auto) % (20.0-45.0) % (20.0-45.0) Monocytes (%) (Auto) % (1.0-10.0) % (1.0-10.0) Eosinophils (%) (Auto) % (0.0-3.0) % (0.0-3.0) Basophils (%) (Auto) % (0.0-2.0) % (0.0-2.0) Differential Total Cells Counted 100 100 Neutrophils % (Manual) 83 % (45-75) H 85 % (45-75) H Lymphocytes % (Manual) 7 % (20-45) L 7 % (20-45) L Monocytes % (Manual) 9 % (1-10) 4 % (1-10) Eosinophils % (Manual) 1 % (0-3) 0 % (0-3) Basophils % (Manual) 0 % (0-2) 0 % (0-2) Band Neutrophils 0 % (0-8) 4 % (0-8) Platelet Estimate Adequate Adequate Platelet Morphology Normal Normal Red Blood Cell Morphology Normal Normal Sodium Level 143 mEQ/L (135-145) Potassium Level 3.4 mEQ/L (3.4-4.9) Chloride Level 107 mEQ/L (98-107) Carbon Dioxide Level 23 mEQ/L (20-30) Anion Gap 13 (5-15) Blood Urea Nitrogen 15 mg/dL (7-23) Creatinine 0.6 mg/dL (0.5-0.9) Estimat Glomerular Filtration Rate > 60 mL/min (>60) Glucose Level 141 mg/dL (74-106) H Calcium Level 8.6 mg/dL (8.6-10.2) Phosphorus Level 3.9 mg/dL (2.5-4.8) Albumin 2.7 g/dL (3.5-5.2) L Lactate Dehydrogenase 189 U/L (135-230) Carcinoembryonic Antigen 0.6 ng/mL Blastomyces Ab Immunodiffusion Pending Cryptococcus Antigen Pending Histoplasma Mycelial Antibody Pending Histoplasma Antibody w Mycelial Ag Pending Histoplasma Antibody with Yeast Ag Pending TB Test (T-Spot) Pending TB Test Nil Control (T-Spot) Pending TB Test Panel A (T-Spot) Pending TB Test Panel B (T-Spot) Pending TB Test Positive Control (T-Spot) Pending Current Medications Medications (Trade) Dose Ordered Sig/Richar Route PRN Reason Start Time Stop Time Status Last Admin Dose Admin Acetaminophen (Tylenol) 650 mg Q4H PRN ORAL fever 07/12/16 06:00 08/11/16 05:59 Al Hydroxide/Mg Hydroxide (Mylanta II) 30 ml Q6H PRN ORAL dyspepsia 07/12/16 06:00 08/11/16 05:59 Albuterol/ Ipratropium (DuoNeb 0.5-3(2.5)mg/3ml) 3 ml Q4H PRN HHN Shortness of Breath 07/12/16 06:00 07/17/16 05:59 Heparin Sodium (Porcine) (Heparin 5000 units/ml) 5,000 units EVERY 12 HOURS SUBQ 07/12/16 09:00 08/11/16 08:59 07/13/16 08:32 Levothyroxine Sodium 100 mcg 100 mcg DAILY@0630 ORAL 07/12/16 06:30 08/11/16 06:29 07/13/16 06:21 Nitroglycerin (Ntg) 0.4 mg Q5M PRN SL Prn Chest Pain 07/12/16 06:00 08/11/16 05:59 Ondansetron HCl (Zofran) 4 mg Q6H PRN IVP Nausea & Vomiting 07/12/16 06:00 08/11/16 05:59 Piperacillin Sod/ Tazobactam Sod/ Dextrose (Zosyn/D5W) 110 ml @ 27.5 mls/hr Q8H IVPB 07/12/16 18:00 07/19/16 17:59 07/13/16 10:21 Polyethylene Glycol (Miralax) 17 gm DAILYPRN PRN ORAL Constipation 07/12/16 06:00 08/11/16 05:59 Promethazine HCl/ Codeine (Phenergan with Codeine) 5 ml Q4H PRN ORAL For Cough 07/12/16 06:00 08/11/16 05:59 07/12/16 08:30 Temazepam (Restoril) 15 mg HSPRN PRN ORAL Insomnia 07/12/16 06:00 07/19/16 05:59 Vancomycin HCl 1 gm/Dextrose 275 ml @ 183.708 mls/hr Q12H IVPB 07/12/16 16:00 07/17/16 15:59 07/13/16 16:15 [place] M.D. Jul 13, 2016 16:51
[2016-07-13 20:00] VITALS: BP 109/64
[2016-07-14] VITALS: BP 126/62
[2016-07-14] MEDS: Piperacillin/Tazobactam 3.375 GM in D5W 110 ML IVPB SCH ×3 (02:09→18:02)
[2016-07-14 04:00] VITALS: BP 124/62
[2016-07-14 04:41] LABS: BASOPHILS % (AUTO) 0.4 % (0.0-2.0); EOSINOPHILS % (AUTO) 0.6 % (0.0-3.0); LYMPHOCYTES % (AUTO) 13.3 % (20.0-45.0); MEAN CORPUSCULAR HEMOGLOBIN 29.5 PG (27.0-31.0); MEAN CORPUSCULAR HGB CONC 34.2 G/DL (32.0-36.0); MEAN CORPUSCULAR VOLUME 86 FL (80-99); MEAN PLATELET VOLUME 6.7 FL (6.5-10.1); MONOCYTES % (AUTO) 3.4 % (1.0-10.0); NEUTROPHILS % (AUTO) 82.3 % (45.0-75.0); PLATELET COUNT 454 K/UL (150-450); RED BLOOD COUNT 4.13 M/UL (4.20-5.40); RED CELL DISTRIBUTION WIDTH 14.1 % (11.6-14.8); WHITE BLOOD COUNT 17.6 K/UL (4.8-10.8)
[2016-07-14 05:05] LABS: ANION GAP 14 (5-15); CALCIUM 8.6 mg/dL (8.6-10.2); CARBON DIOXIDE 26 mEQ/L (20-30); CHLORIDE 101 mEQ/L (98-107); CREATININE 0.7 mg/dL (0.5-0.9); GLOMERULAR FILTRATION RATE > 60 mL/min (>60); HEMOLYSIS 1; POTASSIUM 3.3 mEQ/L (3.4-4.9); SODIUM 141 mEQ/L (135-145)
[2016-07-14] MEDS ORDERED: Vancomycin 750mg Inj IVPB ONE (06:54)
[2016-07-14] MEDS: Vancomycin 750mg/D5W 275ml IVPB SCH ×6 (07:00→22:58)
[2016-07-14 07:58] VITALS: BP 102/63
--- NOTE | 2016-07-14 08:57 | General Progress Note ---
Assessment/Plan Problem List: (1) Nosocomial pneumonia ICD Codes: J18.9 - Pneumonia, unspecified organism SNOMED: 577349252 (2) Sepsis ICD Codes: A41.9 - Sepsis, unspecified organism SNOMED: 29456608 (3) CAP (community acquired pneumonia) ICD Codes: J18.9 - Pneumonia, unspecified organism SNOMED: 054175221 (4) Diabetes mellitus ICD Codes: E11.9 - Type 2 diabetes mellitus without complications SNOMED: 05419718 Status: stable, progressing, tolerating diet Assessment/Plan ot pt diet abx cbc bmp am Subjective Constitutional: Reports: weakness Allergies: Coded Allergies: No Known Allergies (Unverified , 07/12/16) All Systems: reviewed and negative except above Subjective 02nc sl sob Objective Last 24 Hour Vital Signs Date Time Temp Pulse Resp B/P Pulse Ox O2 Delivery O2 Flow Rate FiO2 07/14/16 07:58 98.2 80 18 102/63 95 Nasal Cannula 2.0 07/14/16 04:00 97.4 70 18 124/62 100 Room Air 07/14/16 00:00 97.6 74 19 126/62 100 Room Air 07/13/16 23:10 Nasal Cannula 3.0 32 07/13/16 23:09 Nasal Cannula 3.0 32 07/13/16 20:00 98.8 95 19 109/64 95 Room Air 07/13/16 19:04 Nasal Cannula 3.0 32 07/13/16 19:03 Nasal Cannula 3.0 32 07/13/16 15:50 97.6 91 19 109/68 95 Nasal Cannula 2.0 07/13/16 14:40 81 18 92 Nasal Cannula 3.0 32 07/13/16 14:40 Nasal Cannula 3.0 32 07/13/16 11:33 97.9 92 20 121/71 95 Nasal Cannula 2.0 07/13/16 11:10 82 18 93 Nasal Cannula 3.0 32 07/13/16 11:10 84 18 93 Nasal Cannula 3.0 32 Intake and Output 07/13/16 07/14/16 19:00 07:00 Intake Total 1075.0 ml 400.0 ml Balance 1075.0 ml 400.0 ml Intake Oral 690 ml 180 ml IV Total 385.0 ml 220.0 ml # Voids 4 2 Laboratory Tests 07/13/16 13:50: White Blood Count 20.4H, Red Blood Count 3.89L, Hemoglobin 11.0L, Hematocrit 34.0L, Mean Corpuscular Volume 87, Mean Corpuscular Hemoglobin 28.2, Mean Corpuscular Hemoglobin Concent 32.2, Red Cell Distribution Width 14.2, Platelet Count 413, Mean Platelet Volume 6.7, Neutrophils (%) (Auto) , Lymphocytes (%) ( Auto) , Monocytes (%) (Auto) , Eosinophils (%) (Auto) , Basophils (%) (Auto) , Differential Total Cells Counted 100, Neutrophils % (Manual) 85H, Lymphocytes % (Manual) 7L, Monocytes % (Manual) 4, Eosinophils % (Manual) 0, Basophils % ( Manual) 0, Band Neutrophils 4, Platelet Estimate Adequate, Platelet Morphology Normal, Red Blood Cell Morphology Normal, Lactate Dehydrogenase 189, Carcinoembryonic Antigen 0.6, Blastomyces Ab Immunodiffusion [Pending], Cryptococcus Antigen [Pending], Histoplasma Mycelial Antibody [Pending], Histoplasma Antibody w Mycelial Ag [Pending], Histoplasma Antibody with Yeast Ag [Pending], TB Test (T-Spot) [Pending], TB Test Nil Control (T-Spot) [Pending] , TB Test Panel A (T-Spot) [Pending], TB Test Panel B (T-Spot) [Pending], TB Test Positive Control (T-Spot) [Pending] 07/14/16 03:15: White Blood Count 17.6H, Red Blood Count 4.13L, Hemoglobin 12.2, Hematocrit 35.7L, Mean Corpuscular Volume 86, Mean Corpuscular Hemoglobin 29.5, Mean Corpuscular Hemoglobin Concent 34.2, Red Cell Distribution Width 14.1, Platelet Count 454H, Mean Platelet Volume 6.7, Neutrophils (%) (Auto) 82.3H, Lymphocytes (%) (Auto) 13.3L, Monocytes (%) (Auto) 3.4, Eosinophils (%) (Auto) 0.6, Basophils (%) (Auto) 0.4, Sodium Level 141, Potassium Level 3.3L, Chloride Level 101, Carbon Dioxide Level 26, Anion Gap 14, Blood Urea Nitrogen 11, Creatinine 0.7, Estimat Glomerular Filtration Rate > 60, Glucose Level 113H, Calcium Level 8.6, Vancomycin Level Trough 8.6 Height (Feet): 4 Height (Inches): 10.00 Weight (Pounds): 105 General Appearance: lethargic EENT: normal ENT inspection Neck: normal alignment Cardiovascular: normal peripheral pulses, normal rate, regular rhythm Respiratory/Chest: chest wall non-tender, lungs clear, normal breath sounds Abdomen: normal bowel sounds, non tender, soft Extremities: normal inspection Edema: no edema noted Arm (L), no edema noted Arm (R), no edema noted Leg (L), no edema noted Leg (R), no edema noted Pedal (L), no edema noted Pedal (R), no edema noted Generalized Neurologic: responsive, motor weakness Skin: normal pigmentation, warm/dry NITIN WAGONER Jul 14, 2016 08:57
[2016-07-14] MEDS: Heparin 5000 units/ml inj SUBQ SCH ×2 (10:27→20:21)
[2016-07-14 11:46] VITALS: BP 106/52
--- NOTE | 2016-07-14 13:39 | Pulmonology Progress Note ---
Assessment/Plan Problems: (1) CAP (community acquired pneumonia) (2) Sepsis (3) Cavitary lesion of lung Assessment/Plan isolation ppd sputum for afb TB gold pt didn't have fever on presentation or now. it is unlikely that she has septic emboli Subjective ROS Limited/Unobtainable: No Constitutional: Reports: no symptoms HEENT: Repors: no symptoms Cardiovascular: Reports: no symptoms Allergies: Coded Allergies: No Known Allergies (Unverified , 07/12/16) Objective Last 24 Hour Vital Signs Date Time Temp Pulse Resp B/P Pulse Ox O2 Delivery O2 Flow Rate FiO2 07/14/16 11:46 98.0 83 19 106/52 95 Nasal Cannula 2.0 07/14/16 07:58 98.2 80 18 102/63 95 Nasal Cannula 2.0 07/14/16 07:00 97 16 Nasal Cannula 2.0 28 07/14/16 04:00 97.4 70 18 124/62 100 Room Air 07/14/16 00:00 97.6 74 19 126/62 100 Room Air 07/13/16 23:10 Nasal Cannula 3.0 32 07/13/16 23:09 Nasal Cannula 3.0 32 07/13/16 20:00 98.8 95 19 109/64 95 Room Air 07/13/16 19:04 Nasal Cannula 3.0 32 07/13/16 19:03 Nasal Cannula 3.0 32 07/13/16 15:50 97.6 91 19 109/68 95 Nasal Cannula 2.0 07/13/16 14:40 81 18 92 Nasal Cannula 3.0 32 07/13/16 14:40 Nasal Cannula 3.0 32 Intake and Output 07/13/16 07/14/16 19:00 07:00 Intake Total 1075.0 ml 400.0 ml Balance 1075.0 ml 400.0 ml Intake Oral 690 ml 180 ml IV Total 385.0 ml 220.0 ml # Voids 4 2 General Appearance: WD/WN HEENT: normocephalic, atraumatic Respiratory/Chest: chest wall non-tender, lungs clear Cardiovascular: normal peripheral pulses, normal rate Abdomen: normal bowel sounds, soft, non tender Extremities: no cyanosis Skin: no rash Microbiology Date/Time Source Procedure Growth Status 07/12/16 00:40 Blood Blood Culture - Preliminary NO GROWTH AFTER 48 HOURS Resulted 07/12/16 00:25 Blood Blood Culture - Preliminary NO GROWTH AFTER 48 HOURS Resulted 07/12/16 15:00 Sputum Gram Stain - Final Complete 07/12/16 15:00 Sputum Sputum Culture - Final NORMAL UPPER RESPIRATORY JENNI PRESENT Complete 07/12/16 14:50 Nasopharynx Influenza Types A,B Antigen (MARIYA) - Final Complete 07/12/16 09:00 Urine,Clean Catch Urine Culture - Final NO GROWTH AFTER 48 HOURS Complete Laboratory Tests 07/13/16 13:50: White Blood Count 20.4H, Red Blood Count 3.89L, Hemoglobin 11.0L, Hematocrit 34.0L, Mean Corpuscular Volume 87, Mean Corpuscular Hemoglobin 28.2, Mean Corpuscular Hemoglobin Concent 32.2, Red Cell Distribution Width 14.2, Platelet Count 413, Mean Platelet Volume 6.7, Neutrophils (%) (Auto) , Lymphocytes (%) ( Auto) , Monocytes (%) (Auto) , Eosinophils (%) (Auto) , Basophils (%) (Auto) , Differential Total Cells Counted 100, Neutrophils % (Manual) 85H, Lymphocytes % (Manual) 7L, Monocytes % (Manual) 4, Eosinophils % (Manual) 0, Basophils % ( Manual) 0, Band Neutrophils 4, Platelet Estimate Adequate, Platelet Morphology Normal, Red Blood Cell Morphology Normal, Lactate Dehydrogenase 189, Carcinoembryonic Antigen 0.6, Blastomyces Ab Immunodiffusion [Pending], Cryptococcus Antigen [Pending], Histoplasma Mycelial Antibody [Pending], Histoplasma Antibody w Mycelial Ag [Pending], Histoplasma Antibody with Yeast Ag [Pending], TB Test (T-Spot) [Pending], TB Test Nil Control (T-Spot) [Pending] , TB Test Panel A (T-Spot) [Pending], TB Test Panel B (T-Spot) [Pending], TB Test Positive Control (T-Spot) [Pending] 07/14/16 03:15: White Blood Count 17.6H, Red Blood Count 4.13L, Hemoglobin 12.2, Hematocrit 35.7L, Mean Corpuscular Volume 86, Mean Corpuscular Hemoglobin 29.5, Mean Corpuscular Hemoglobin Concent 34.2, Red Cell Distribution Width 14.1, Platelet Count 454H, Mean Platelet Volume 6.7, Neutrophils (%) (Auto) 82.3H, Lymphocytes (%) (Auto) 13.3L, Monocytes (%) (Auto) 3.4, Eosinophils (%) (Auto) 0.6, Basophils (%) (Auto) 0.4, Sodium Level 141, Potassium Level 3.3L, Chloride Level 101, Carbon Dioxide Level 26, Anion Gap 14, Blood Urea Nitrogen 11, Creatinine 0.7, Estimat Glomerular Filtration Rate > 60, Glucose Level 113H, Calcium Level 8.6, Vancomycin Level Trough 8.6, HIV (1&2) Antibody Rapid Negative Current Medications Medications (Trade) Dose Ordered Sig/Richar Route PRN Reason Start Time Stop Time Status Last Admin Dose Admin Acetaminophen (Tylenol) 650 mg Q4H PRN ORAL fever 07/12/16 06:00 08/11/16 05:59 Al Hydroxide/Mg Hydroxide (Mylanta II) 30 ml Q6H PRN ORAL dyspepsia 07/12/16 06:00 08/11/16 05:59 Albuterol/ Ipratropium (DuoNeb 0.5-3(2.5)mg/3ml) 3 ml Q4H PRN HHN Shortness of Breath 07/12/16 06:00 07/17/16 05:59 Heparin Sodium (Porcine) (Heparin 5000 units/ml) 5,000 units EVERY 12 HOURS SUBQ 07/12/16 09:00 08/11/16 08:59 07/14/16 10:27 Levothyroxine Sodium 100 mcg 100 mcg DAILY@0630 ORAL 07/12/16 06:30 08/11/16 06:29 07/14/16 06:59 Nitroglycerin (Ntg) 0.4 mg Q5M PRN SL Prn Chest Pain 07/12/16 06:00 08/11/16 05:59 Ondansetron HCl (Zofran) 4 mg Q6H PRN IVP Nausea & Vomiting 07/12/16 06:00 08/11/16 05:59 Piperacillin Sod/ Tazobactam Sod 3.375 gm/Dextrose 110 ml @ 27.5 mls/hr Q8H IVPB 07/12/16 18:00 07/19/16 17:59 07/14/16 10:24 Polyethylene Glycol (Miralax) 17 gm DAILYPRN PRN ORAL Constipation 07/12/16 06:00 08/11/16 05:59 Promethazine HCl/ Codeine (Phenergan with Codeine) 5 ml Q4H PRN ORAL For Cough 07/12/16 06:00 08/11/16 05:59 07/12/16 08:30 Temazepam (Restoril) 15 mg HSPRN PRN ORAL Insomnia 07/12/16 06:00 07/19/16 05:59 Vancomycin HCl/ Dextrose (Vancomycin/D5W) 275 ml @ 183.708 mls/hr Q8H IVPB 07/14/16 06:30 07/19/16 06:29 07/14/16 07:00 KATHIA CATES Jul 14, 2016 13:39
[2016-07-14 16:00] VITALS: BP 104/55
[2016-07-14 20:00] VITALS: BP 96/63
[2016-07-15] VITALS: BP 92/53
[2016-07-15] MEDS: Piperacillin/Tazobactam 3.375 GM in D5W 110 ML IVPB SCH ×3 (02:02→18:18)
[2016-07-15 04:00] VITALS: BP 92/49
[2016-07-15] MEDS: Vancomycin 750mg/D5W 275ml IVPB SCH ×4 (06:05→14:56)
[2016-07-15 07:25] LABS: BASOPHILS % (AUTO) 0.4 % (0.0-2.0); EOSINOPHILS % (AUTO) 0.9 % (0.0-3.0); MEAN CORPUSCULAR HEMOGLOBIN 29.5 PG (27.0-31.0); MEAN CORPUSCULAR HGB CONC 33.1 G/DL (32.0-36.0); MEAN CORPUSCULAR VOLUME 89 FL (80-99); MEAN PLATELET VOLUME 6.3 FL (6.5-10.1); MONOCYTES % (AUTO) 3.3 % (1.0-10.0); NEUTROPHILS % (AUTO) 82.4 % (45.0-75.0); PLATELET COUNT 408 K/UL (150-450); RED BLOOD COUNT 3.71 M/UL (4.20-5.40); RED CELL DISTRIBUTION WIDTH 13.6 % (11.6-14.8); WHITE BLOOD COUNT 17.3 K/UL (4.8-10.8)
[2016-07-15 08:04] LABS: ANION GAP 17 (5-15); CALCIUM 8.4 mg/dL (8.6-10.2); CARBON DIOXIDE 23 mEQ/L (20-30); CHLORIDE 99 mEQ/L (98-107); CREATININE 0.8 mg/dL (0.5-0.9); GLOMERULAR FILTRATION RATE > 60 mL/min (>60); HEMOLYSIS 2; POTASSIUM 3.4 mEQ/L (3.4-4.9); SODIUM 139 mEQ/L (135-145)
[2016-07-15 08:14] VITALS: BP 101/62
[2016-07-15] MEDS: Heparin 5000 units/ml inj SUBQ SCH ×2 (10:21→21:24)
--- NOTE | 2016-07-15 11:28 | Cardiology Report ---
APPROVED REPORT EXAM: Two-dimensional and M-mode echocardiogram with Doppler and color Doppler. INDICATION Endocarditis M-Mode DIMENSIONS IVSd0.8 (0.7-1.1cm)Left Atrium (MM)3.4 (1.6-4.0cm) LVDd4.0 (3.5-5.6cm)Aortic Root2.2 (2.0-3.7cm) PWd0.6 (0.7-1.1cm)Aortic Cusp Exc.1.7 (1.5-2.0cm) LVDs2.7 (2.5-4.0cm) PWs1.0 cm Normal left ventricular chamber size, systolic function and wall motion. Left ventricular ejection fraction estimated to be 60-65 %. No evidence of left ventricular hypertrophy. Large posterior pleural effusion. Small posterior pericardial effusion. All other cardiac chamber sizes are within normal limits. Focal aortic valve sclerosis with adequate cusp excursion Thickened mitral valve leaflets with normal excursion. Mitral annulus and aortic root calcification. Pulmonic valve is well visualized. Normal tricuspid valve structure. IVC is normal in size with physiologic collapse. No evidence of vegitation. Consider CONNOR if clinically indicated. A color flow and spectral Doppler study was performed and revealed: No aortic regurgitation. Trace mitral regurgitation. Left ventricular diastolic dysfunction grade 1. No tricuspid regurgitation.
[2016-07-15 11:33] VITALS: BP 104/68
--- NOTE | 2016-07-15 13:16 | General Progress Note ---
Assessment/Plan Problem List: (1) Nosocomial pneumonia ICD Codes: J18.9 - Pneumonia, unspecified organism SNOMED: 363403804 (2) Sepsis ICD Codes: A41.9 - Sepsis, unspecified organism SNOMED: 13968727 (3) CAP (community acquired pneumonia) ICD Codes: J18.9 - Pneumonia, unspecified organism SNOMED: 014365367 (4) Diabetes mellitus ICD Codes: E11.9 - Type 2 diabetes mellitus without complications SNOMED: 04614151 Status: stable, progressing, tolerating diet Assessment/Plan ot pt diet abx cbc bmp am Subjective Constitutional: Reports: weakness Respiratory: Reports: cough Allergies: Coded Allergies: No Known Allergies (Unverified , 07/12/16) All Systems: reviewed and negative except above Subjective 02nc sl sob Objective Last 24 Hour Vital Signs Date Time Temp Pulse Resp B/P Pulse Ox O2 Delivery O2 Flow Rate FiO2 07/15/16 11:33 97.6 86 19 104/68 96 Nasal Cannula 2.0 07/15/16 08:14 97.8 82 19 101/62 96 Nasal Cannula 2.0 07/15/16 07:58 95 Nasal Cannula 2.0 28 07/15/16 07:58 Nasal Cannula 2.0 28 07/15/16 04:00 97.1 84 16 92/49 95 Nasal Cannula 2.0 07/15/16 00:00 98.1 74 18 92/53 95 Nasal Cannula 2.0 07/14/16 20:00 97.9 86 22 96/63 99 Nasal Cannula 2.0 07/14/16 19:38 95 Nasal Cannula 2.0 28 07/14/16 19:38 Nasal Cannula 2.0 28 07/14/16 19:37 79 18 Nasal Cannula 2.0 28 07/14/16 16:00 97.0 79 21 104/55 95 Nasal Cannula 2.0 Intake and Output 07/14/16 07/15/16 19:00 07:00 Intake Total 1229.9 ml 1412.500 ml Balance 1229.9 ml 1412.500 ml Intake Oral 450 ml 1000 ml IV Total 779.9 ml 412.500 ml # Voids 3 3 Laboratory Tests 07/15/16 06:20: White Blood Count 17.3H, Red Blood Count 3.71L, Hemoglobin 10.9L, Hematocrit 33.1L, Mean Corpuscular Volume 89, Mean Corpuscular Hemoglobin 29.5, Mean Corpuscular Hemoglobin Concent 33.1, Red Cell Distribution Width 13.6, Platelet Count 408, Mean Platelet Volume 6.3L, Neutrophils (%) (Auto) 82.4H, Lymphocytes (%) (Auto) 13.0L, Monocytes (%) (Auto) 3.3, Eosinophils (%) (Auto) 0.9, Basophils (%) (Auto) 0.4, Sodium Level 139, Potassium Level 3.4, Chloride Level 99, Carbon Dioxide Level 23, Anion Gap 17H, Blood Urea Nitrogen 10, Creatinine 0.8, Estimat Glomerular Filtration Rate > 60, Glucose Level 126H, Calcium Level 8.4L 07/15/16 07:40: TB Test (T-Spot) [Pending], TB Test Nil Control (T-Spot) [Pending], TB Test Panel A (T-Spot) [Pending], TB Test Panel B (T-Spot) [Pending], TB Test Positive Control (T-Spot) [Pending] Height (Feet): 4 Height (Inches): 10.00 Weight (Pounds): 105 General Appearance: alert EENT: normal ENT inspection Neck: normal alignment Cardiovascular: normal peripheral pulses, normal rate, regular rhythm Respiratory/Chest: lungs clear, normal breath sounds, decreased breath sounds Abdomen: normal bowel sounds, non tender, soft Extremities: normal inspection Edema: no edema noted Arm (L), no edema noted Arm (R), no edema noted Leg (L), no edema noted Leg (R), no edema noted Pedal (L), no edema noted Pedal (R), no edema noted Generalized Neurologic: responsive, motor weakness Skin: normal pigmentation, warm/dry NITIN WAGONER Jul 15, 2016 13:16
[2016-07-15 16:00] VITALS: BP 104/53
--- NOTE | 2016-07-15 17:49 | Infectious Diseases Prog Note ---
Assessment/Plan Problems: (1) CAP (community acquired pneumonia) Assessment & Plan: with multifocal cavitary lesions suspect septic emboli VS fungal VS atypical mycobacterium, VS mets , T spot is pending, fungal serology in progress, continue vancomycin and zosyn empirically for now , screening for influenza is negative. may need bronchoscopy OR lung biopsy from the lesions if work up is negative . will order echo to rule out vegetations . (2) Sepsis Assessment & Plan: due to pneumonia, continue vancomycin and zosyn empirically for now, await blood culture (3) Diabetes mellitus Assessment & Plan: recommend tight glycemic control to keep blood glucose between 80-120 Subjective Respiratory: Reports: productive cough, shortness of breath Allergies: Coded Allergies: No Known Allergies (Unverified , 07/12/16) All Systems: reviewed and negative except above Objective Vital Signs Last 24 Hour Vital Signs Date Time Temp Pulse Resp B/P Pulse Ox O2 Delivery O2 Flow Rate FiO2 07/15/16 16:00 98.1 78 20 104/53 98 Room Air 07/15/16 11:33 97.6 86 19 104/68 96 Nasal Cannula 2.0 07/15/16 08:14 97.8 82 19 101/62 96 Nasal Cannula 2.0 07/15/16 07:58 95 Nasal Cannula 2.0 07/15/16 07:58 Nasal Cannula 2.0 28 07/15/16 04:00 97.1 84 16 92/49 95 Nasal Cannula 2.0 07/15/16 00:00 98.1 74 18 92/53 95 Nasal Cannula 2.0 07/14/16 20:00 97.9 86 22 96/63 99 Nasal Cannula 2.0 07/14/16 19:38 95 Nasal Cannula 2.0 28 07/14/16 19:38 Nasal Cannula 2.0 28 07/14/16 19:37 79 18 Nasal Cannula 2.0 28 Height (Feet): 4 Height (Inches): 10.00 Weight (Pounds): 105 General Appearance: WD/WN, no acute distress HEENT: normocephalic, atraumatic, anicteric, mucous membranes moist Respiratory/Chest: chest wall non-tender, normal breath sounds, no respiratory distress, no accessory muscle use, decreased breath sounds, crackles/rales Cardiovascular: normal peripheral pulses, normal rate, regular rhythm, no gallop/murmur, no JVD Abdomen: normal bowel sounds, soft, non tender, no organomegaly, non distended , no mass, no scars Extremities: no cyanosis, no clubbing Skin: no rash, no lesions, no ulcers Microbiology Date/Time Source Procedure Growth Status 07/14/16 09:00 Sputum AFB Specimen Processing Tissue - Final Resulted 07/14/16 09:00 Sputum Acid Fast Bacilli Smear - Final Resulted 07/14/16 09:00 Sputum Acid Fast Bacilli Culture Pending Resulted Laboratory Tests Test 07/15/16 06:20 07/15/16 07:40 White Blood Count 17.3 K/UL (4.8-10.8) H Red Blood Count 3.71 M/UL (4.20-5.40) L Hemoglobin 10.9 G/DL (12.0-16.0) L Hematocrit 33.1 % (37.0-47.0) L Mean Corpuscular Volume 89 FL (80-99) Mean Corpuscular Hemoglobin 29.5 PG (27.0-31.0) Mean Corpuscular Hemoglobin Concent 33.1 G/DL (32.0-36.0) Red Cell Distribution Width 13.6 % (11.6-14.8) Platelet Count 408 K/UL (150-450) Mean Platelet Volume 6.3 FL (6.5-10.1) L Neutrophils (%) (Auto) 82.4 % (45.0-75.0) H Lymphocytes (%) (Auto) 13.0 % (20.0-45.0) L Monocytes (%) (Auto) 3.3 % (1.0-10.0) Eosinophils (%) (Auto) 0.9 % (0.0-3.0) Basophils (%) (Auto) 0.4 % (0.0-2.0) Sodium Level 139 mEQ/L (135-145) Potassium Level 3.4 mEQ/L (3.4-4.9) Chloride Level 99 mEQ/L (98-107) Carbon Dioxide Level 23 mEQ/L (20-30) Anion Gap 17 (5-15) H Blood Urea Nitrogen 10 mg/dL (7-23) Creatinine 0.8 mg/dL (0.5-0.9) Estimat Glomerular Filtration Rate > 60 mL/min (>60) Glucose Level 126 mg/dL (74-106) H Calcium Level 8.4 mg/dL (8.6-10.2) L TB Test (T-Spot) Pending TB Test Nil Control (T-Spot) Pending TB Test Panel A (T-Spot) Pending TB Test Panel B (T-Spot) Pending TB Test Positive Control (T-Spot) Pending Current Medications Medications (Trade) Dose Ordered Sig/Richar Route PRN Reason Start Time Stop Time Status Last Admin Dose Admin Acetaminophen (Tylenol) 650 mg Q4H PRN ORAL fever 07/12/16 06:00 08/11/16 05:59 Al Hydroxide/Mg Hydroxide (Mylanta II) 30 ml Q6H PRN ORAL dyspepsia 07/12/16 06:00 08/11/16 05:59 Albuterol/ Ipratropium (DuoNeb 0.5-3(2.5)mg/3ml) 3 ml Q4H PRN HHN Shortness of Breath 07/12/16 06:00 07/17/16 05:59 Heparin Sodium (Porcine) (Heparin 5000 units/ml) 5,000 units EVERY 12 HOURS SUBQ 07/12/16 09:00 08/11/16 08:59 07/15/16 10:21 Levothyroxine Sodium 100 mcg 100 mcg DAILY@0630 ORAL 07/12/16 06:30 08/11/16 06:29 07/15/16 06:05 Nitroglycerin (Ntg) 0.4 mg Q5M PRN SL Prn Chest Pain 07/12/16 06:00 08/11/16 05:59 Ondansetron HCl (Zofran) 4 mg Q6H PRN IVP Nausea & Vomiting 07/12/16 06:00 08/11/16 05:59 Piperacillin Sod/ Tazobactam Sod 3.375 gm/Dextrose 110 ml @ 27.5 mls/hr Q8H IVPB 07/12/16 18:00 07/19/16 17:59 07/15/16 10:22 Polyethylene Glycol (Miralax) 17 gm DAILYPRN PRN ORAL Constipation 07/12/16 06:00 08/11/16 05:59 Promethazine HCl/ Codeine (Phenergan with Codeine) 5 ml Q4H PRN ORAL For Cough 07/12/16 06:00 08/11/16 05:59 07/12/16 08:30 Temazepam (Restoril) 15 mg HSPRN PRN ORAL Insomnia 07/12/16 06:00 07/19/16 05:59 Vancomycin HCl/ Dextrose (Vancomycin/D5W) 275 ml @ 183.708 mls/hr Q8H IVPB 07/14/16 06:30 07/19/16 06:29 07/15/16 14:56 Italo Nation M.D. Jul 15, 2016 17:49
[2016-07-15 19:00] VITALS: BP 109/56
[2016-07-16] VITALS: BP 95/63
[2016-07-16] MEDS: Piperacillin/Tazobactam 3.375 GM in D5W 110 ML IVPB SCH ×3 (01:25→18:55)
[2016-07-16 04:00] VITALS: BP 95/54
[2016-07-16] MEDS: Vancomycin 750mg/D5W 275ml IVPB SCH ×6 (06:29→22:54)
[2016-07-16 07:19] LABS: BASOPHILS % (AUTO) 0.6 % (0.0-2.0); EOSINOPHILS % (AUTO) 1.4 % (0.0-3.0); LYMPHOCYTES % (AUTO) 15.1 % (20.0-45.0); MEAN CORPUSCULAR HGB CONC 34.6 G/DL (32.0-36.0); MEAN CORPUSCULAR VOLUME 87 FL (80-99); MEAN PLATELET VOLUME 6.5 FL (6.5-10.1); MONOCYTES % (AUTO) 3.7 % (1.0-10.0); NEUTROPHILS % (AUTO) 79.3 % (45.0-75.0); PLATELET COUNT 476 K/UL (150-450); RED BLOOD COUNT 3.77 M/UL (4.20-5.40); RED CELL DISTRIBUTION WIDTH 14.2 % (11.6-14.8); WHITE BLOOD COUNT 13.6 K/UL (4.8-10.8)
[2016-07-16 07:28] LABS: ANION GAP 12 (5-15); CALCIUM 8.6 mg/dL (8.6-10.2); CARBON DIOXIDE 24 mEQ/L (20-30); CHLORIDE 107 mEQ/L (98-107); CREATININE 0.9 mg/dL (0.5-0.9); GLOMERULAR FILTRATION RATE > 60 mL/min (>60); HEMOLYSIS 1; POTASSIUM 4.1 mEQ/L (3.4-4.9); SODIUM 143 mEQ/L (135-145)
[2016-07-16 07:57] VITALS: BP 97/55
[2016-07-16] MEDS: Heparin 5000 units/ml inj SUBQ SCH ×2 (10:15→20:14)
[2016-07-16 11:53] VITALS: BP 100/50
--- NOTE | 2016-07-16 13:49 | General Progress Note ---
Assessment/Plan Problem List: (1) Nosocomial pneumonia ICD Codes: J18.9 - Pneumonia, unspecified organism SNOMED: 398294788 (2) Sepsis ICD Codes: A41.9 - Sepsis, unspecified organism SNOMED: 60377918 (3) CAP (community acquired pneumonia) ICD Codes: J18.9 - Pneumonia, unspecified organism SNOMED: 754197458 (4) Diabetes mellitus ICD Codes: E11.9 - Type 2 diabetes mellitus without complications SNOMED: 58442513 Status: stable, progressing, tolerating diet Assessment/Plan ot pt diet abx cbc bmp am Subjective Constitutional: Reports: weakness Allergies: Coded Allergies: No Known Allergies (Unverified , 07/12/16) All Systems: reviewed and negative except above Subjective 02nc sl sob Objective Last 24 Hour Vital Signs Date Time Temp Pulse Resp B/P Pulse Ox O2 Delivery O2 Flow Rate FiO2 07/16/16 11:53 98.4 74 21 100/50 95 Room Air 07/16/16 07:57 97.6 77 20 97/55 97 Room Air 07/16/16 07:47 95 Room Air 07/16/16 07:47 Room Air 07/16/16 04:00 97.7 73 18 95/54 93 Room Air 07/16/16 00:00 97.9 77 18 95/63 94 Room Air 07/15/16 19:29 Room Air 07/15/16 19:29 95 Room Air 07/15/16 19:00 97.7 89 20 109/56 95 Room Air 07/15/16 16:00 98.1 78 20 104/53 98 Room Air Intake and Output 07/15/16 07/16/16 19:00 07:00 Intake Total 725 ml 550.0 ml Balance 725 ml 550.0 ml Intake Oral 450 ml 440 ml IV Total 275 ml 110.0 ml # Voids 3 5 Laboratory Tests 07/15/16 16:30: M. tuberculosis Complex DNA (PCR) [Pending] 07/15/16 21:44: Vancomycin Level Trough 19.0H 07/16/16 06:40: White Blood Count 13.6H, Red Blood Count 3.77L, Hemoglobin 11.3L, Hematocrit 32.7L, Mean Corpuscular Volume 87, Mean Corpuscular Hemoglobin 30.0, Mean Corpuscular Hemoglobin Concent 34.6, Red Cell Distribution Width 14.2, Platelet Count 476H, Mean Platelet Volume 6.5, Neutrophils (%) (Auto) 79.3H, Lymphocytes (%) (Auto) 15.1L, Monocytes (%) (Auto) 3.7, Eosinophils (%) (Auto) 1.4, Basophils (%) (Auto) 0.6, Sodium Level 143, Potassium Level 4.1, Chloride Level 107, Carbon Dioxide Level 24, Anion Gap 12, Blood Urea Nitrogen 11, Creatinine 0.9, Estimat Glomerular Filtration Rate > 60, Glucose Level 136H, Calcium Level 8.6 Height (Feet): 4 Height (Inches): 10.00 Weight (Pounds): 105 General Appearance: lethargic EENT: normal ENT inspection Neck: normal alignment Cardiovascular: normal peripheral pulses, normal rate, regular rhythm Respiratory/Chest: chest wall non-tender, lungs clear, decreased breath sounds Abdomen: normal bowel sounds, non tender, soft Extremities: normal inspection Edema: no edema noted Arm (L), no edema noted Arm (R), no edema noted Leg (L), no edema noted Leg (R), no edema noted Pedal (L), no edema noted Pedal (R), no edema noted Generalized Neurologic: responsive, motor weakness Skin: normal pigmentation, warm/dry NITIN WAGONER Jul 16, 2016 13:49
--- NOTE | 2016-07-16 14:01 | Diagnostic Imaging Report ---
Indication: Dyspnea Comparison: None A single view chest radiograph was obtained. Findings: There is an infiltrate in the left lung suspicious for pneumonia. Borderline cardiomegaly is present. Bones are unremarkable. Impression: Pneumonia suspected in the left lung
[2016-07-16 16:00] VITALS: BP 94/59
--- NOTE | 2016-07-16 16:55 | Infectious Diseases Prog Note ---
Assessment/Plan Problems: (1) CAP (community acquired pneumonia) Assessment & Plan: with multifocal cavitary lesions suspect septic emboli VS fungal VS atypical mycobacterium, VS mets , T spot is pending, fungal serology in progress, continue vancomycin and zosyn empirically for now , screening for influenza is negative. may need bronchoscopy OR lung biopsy from the lesions if work up is negative . will order echo to rule out vegetations . (2) Sepsis Assessment & Plan: due to pneumonia, continue vancomycin and zosyn empirically for now, await blood culture (3) Diabetes mellitus Assessment & Plan: recommend tight glycemic control to keep blood glucose between 80-120 Subjective Constitutional: Reports: fatigue Respiratory: Reports: dry cough Allergies: Coded Allergies: No Known Allergies (Unverified , 07/12/16) All Systems: reviewed and negative except above Objective Vital Signs Last 24 Hour Vital Signs Date Time Temp Pulse Resp B/P Pulse Ox O2 Delivery O2 Flow Rate FiO2 07/16/16 16:00 96.8 75 20 94/59 94 Room Air 07/16/16 11:53 98.4 74 21 100/50 95 Room Air 07/16/16 07:57 97.6 77 20 97/55 97 Room Air 07/16/16 07:47 95 Room Air 07/16/16 07:47 Room Air 07/16/16 04:00 97.7 73 18 95/54 93 Room Air 07/16/16 00:00 97.9 77 18 95/63 94 Room Air 07/15/16 19:29 Room Air 07/15/16 19:29 95 Room Air 07/15/16 19:00 97.7 89 20 109/56 95 Room Air Height (Feet): 4 Height (Inches): 10.00 Weight (Pounds): 105 General Appearance: WD/WN, no acute distress HEENT: normocephalic, atraumatic, anicteric, mucous membranes moist Respiratory/Chest: chest wall non-tender, normal breath sounds, no respiratory distress, no accessory muscle use, decreased breath sounds Cardiovascular: normal peripheral pulses, normal rate, regular rhythm, no gallop/murmur Abdomen: normal bowel sounds, soft, non tender, no organomegaly, non distended , no mass Extremities: no cyanosis, no clubbing Skin: no rash, no lesions, no ulcers Microbiology Date/Time Source Procedure Growth Status 07/14/16 09:00 Sputum AFB Specimen Processing Tissue - Final Resulted 07/14/16 09:00 Sputum Acid Fast Bacilli Smear - Final Resulted 07/14/16 09:00 Sputum Acid Fast Bacilli Culture Pending Resulted Laboratory Tests Test 07/15/16 21:44 07/16/16 06:40 Vancomycin Level Trough 19.0 ug/mL (5.0-12.0) H White Blood Count 13.6 K/UL (4.8-10.8) H Red Blood Count 3.77 M/UL (4.20-5.40) L Hemoglobin 11.3 G/DL (12.0-16.0) L Hematocrit 32.7 % (37.0-47.0) L Mean Corpuscular Volume 87 FL (80-99) Mean Corpuscular Hemoglobin 30.0 PG (27.0-31.0) Mean Corpuscular Hemoglobin Concent 34.6 G/DL (32.0-36.0) Red Cell Distribution Width 14.2 % (11.6-14.8) Platelet Count 476 K/UL (150-450) H Mean Platelet Volume 6.5 FL (6.5-10.1) Neutrophils (%) (Auto) 79.3 % (45.0-75.0) H Lymphocytes (%) (Auto) 15.1 % (20.0-45.0) L Monocytes (%) (Auto) 3.7 % (1.0-10.0) Eosinophils (%) (Auto) 1.4 % (0.0-3.0) Basophils (%) (Auto) 0.6 % (0.0-2.0) Sodium Level 143 mEQ/L (135-145) Potassium Level 4.1 mEQ/L (3.4-4.9) Chloride Level 107 mEQ/L (98-107) Carbon Dioxide Level 24 mEQ/L (20-30) Anion Gap 12 (5-15) Blood Urea Nitrogen 11 mg/dL (7-23) Creatinine 0.9 mg/dL (0.5-0.9) Estimat Glomerular Filtration Rate > 60 mL/min (>60) Glucose Level 136 mg/dL (74-106) H Calcium Level 8.6 mg/dL (8.6-10.2) Current Medications Medications (Trade) Dose Ordered Sig/Richar Route PRN Reason Start Time Stop Time Status Last Admin Dose Admin Acetaminophen (Tylenol) 650 mg Q4H PRN ORAL fever 07/12/16 06:00 08/11/16 05:59 Al Hydroxide/Mg Hydroxide (Mylanta II) 30 ml Q6H PRN ORAL dyspepsia 07/12/16 06:00 08/11/16 05:59 Albuterol/ Ipratropium (DuoNeb 0.5-3(2.5)mg/3ml) 3 ml Q4H PRN HHN Shortness of Breath 07/12/16 06:00 07/17/16 05:59 Heparin Sodium (Porcine) (Heparin 5000 units/ml) 5,000 units EVERY 12 HOURS SUBQ 07/12/16 09:00 08/11/16 08:59 07/16/16 10:15 Levothyroxine Sodium 100 mcg 100 mcg DAILY@0630 ORAL 07/12/16 06:30 08/11/16 06:29 07/16/16 06:28 Nitroglycerin (Ntg) 0.4 mg Q5M PRN SL Prn Chest Pain 07/12/16 06:00 08/11/16 05:59 Ondansetron HCl (Zofran) 4 mg Q6H PRN IVP Nausea & Vomiting 07/12/16 06:00 08/11/16 05:59 Piperacillin Sod/ Tazobactam Sod 3.375 gm/Dextrose 110 ml @ 27.5 mls/hr Q8H IVPB 07/12/16 18:00 07/19/16 17:59 07/16/16 10:37 Polyethylene Glycol (Miralax) 17 gm DAILYPRN PRN ORAL Constipation 07/12/16 06:00 08/11/16 05:59 Promethazine HCl/ Codeine (Phenergan with Codeine) 5 ml Q4H PRN ORAL For Cough 07/12/16 06:00 08/11/16 05:59 07/12/16 08:30 Temazepam (Restoril) 15 mg HSPRN PRN ORAL Insomnia 07/12/16 06:00 07/19/16 05:59 Vancomycin HCl/ Dextrose (Vancomycin/D5W) 275 ml @ 183.708 mls/hr Q8H IVPB 07/14/16 06:30 2/3/17 06:29 07/16/16 16:02 Italo Nation M.D. Jul 16, 2016 16:55
[2016-07-16 19:00] VITALS: BP 101/62
[2016-07-16] MEDS ORDERED: NS 550ML IV ONE (19:47)
[2016-07-16] MEDS ORDERED: Tubing IV Secondary IV ONE (19:47)
[2016-07-16] MEDS: Promethazine/Codeine 5ml UD ORAL PRN (21:08)
[2016-07-17] VITALS: BP 102/61
[2016-07-17] MEDS: Piperacillin/Tazobactam 3.375 GM in D5W 110 ML IVPB SCH ×3 (01:34→18:04)
[2016-07-17 04:00] VITALS: BP 109/72
[2016-07-17] MEDS: Vancomycin 750mg/D5W 275ml IVPB SCH ×6 (06:10→22:50)
[2016-07-17 07:39] LABS: BASOPHILS % (AUTO) 0.8 % (0.0-2.0); EOSINOPHILS % (AUTO) 2.3 % (0.0-3.0); MEAN CORPUSCULAR HEMOGLOBIN 29.8 PG (27.0-31.0); MEAN CORPUSCULAR HGB CONC 34.2 G/DL (32.0-36.0); MEAN CORPUSCULAR VOLUME 87 FL (80-99); MEAN PLATELET VOLUME 6.3 FL (6.5-10.1); PLATELET COUNT 469 K/UL (150-450); RED BLOOD COUNT 3.75 M/UL (4.20-5.40); RED CELL DISTRIBUTION WIDTH 14.3 % (11.6-14.8); WHITE BLOOD COUNT 9.5 K/UL (4.8-10.8)
[2016-07-17 07:55] LABS: ANION GAP 13 (5-15); CALCIUM 8.6 mg/dL (8.6-10.2); CARBON DIOXIDE 23 mEQ/L (20-30); CHLORIDE 103 mEQ/L (98-107); CREATININE 0.9 mg/dL (0.5-0.9); GLOMERULAR FILTRATION RATE > 60 mL/min (>60); HEMOLYSIS 1; POTASSIUM 3.9 mEQ/L (3.4-4.9); SODIUM 139 mEQ/L (135-145)
[2016-07-17 08:15] VITALS: BP 102/50
[2016-07-17] MEDS: Heparin 5000 units/ml inj SUBQ SCH ×2 (09:35→20:55)
[2016-07-17 11:58] VITALS: BP 97/59
--- NOTE | 2016-07-17 14:24 | General Progress Note ---
Assessment/Plan Problem List: (1) Nosocomial pneumonia ICD Codes: J18.9 - Pneumonia, unspecified organism SNOMED: 241384948 (2) Sepsis ICD Codes: A41.9 - Sepsis, unspecified organism SNOMED: 31681293 (3) CAP (community acquired pneumonia) ICD Codes: J18.9 - Pneumonia, unspecified organism SNOMED: 090746376 (4) Diabetes mellitus ICD Codes: E11.9 - Type 2 diabetes mellitus without complications SNOMED: 79352892 Status: stable, progressing, tolerating diet Assessment/Plan ot pt diet abx cbc bmp am dc plan Subjective Constitutional: Reports: weakness Allergies: Coded Allergies: No Known Allergies (Unverified , 07/12/16) All Systems: reviewed and negative except above Subjective 02nc sl sob Objective Last 24 Hour Vital Signs Date Time Temp Pulse Resp B/P Pulse Ox O2 Delivery O2 Flow Rate FiO2 07/17/16 11:58 97.9 86 19 97/59 97 Room Air 07/17/16 08:15 97.3 85 19 102/50 99 Room Air 07/17/16 07:25 Nasal Cannula 2.0 07/17/16 07:25 96 Nasal Cannula 2.0 07/17/16 04:00 97.8 60 20 109/72 97 Nasal Cannula 2.0 07/17/16 00:00 97.7 68 20 102/61 94 Room Air 07/16/16 20:05 95 Nasal Cannula 2.0 07/16/16 20:05 Nasal Cannula 2.0 07/16/16 19:00 96.8 81 20 101/62 96 Room Air 07/16/16 16:00 96.8 75 20 94/59 94 Room Air Intake and Output 07/16/16 07/17/16 19:00 07:00 Intake Total 480 ml 588.708 ml Balance 480 ml 588.708 ml Intake Oral 480 ml 240 ml IV Total 348.708 ml # Voids 2 5 Laboratory Tests 07/17/16 05:50: White Blood Count 9.5, Red Blood Count 3.75L, Hemoglobin 11.2L, Hematocrit 32.7L , Mean Corpuscular Volume 87, Mean Corpuscular Hemoglobin 29.8, Mean Corpuscular Hemoglobin Concent 34.2, Red Cell Distribution Width 14.3, Platelet Count 469H, Mean Platelet Volume 6.3L, Neutrophils (%) (Auto) 75.0, Lymphocytes (%) (Auto) 17.0L, Monocytes (%) (Auto) 5.0, Eosinophils (%) (Auto) 2.3, Basophils (%) (Auto) 0.8, Sodium Level 139, Potassium Level 3.9, Chloride Level 103, Carbon Dioxide Level 23, Anion Gap 13, Blood Urea Nitrogen 10, Creatinine 0.9, Estimat Glomerular Filtration Rate > 60, Glucose Level 166H, Calcium Level 8.6 Height (Feet): 4 Height (Inches): 10.00 Weight (Pounds): 105 General Appearance: lethargic EENT: normal ENT inspection Neck: normal alignment Cardiovascular: normal peripheral pulses, normal rate, regular rhythm Respiratory/Chest: chest wall non-tender, lungs clear, decreased breath sounds Abdomen: normal bowel sounds, non tender, soft Extremities: normal inspection Edema: no edema noted Arm (L), no edema noted Arm (R), no edema noted Leg (L), no edema noted Leg (R), no edema noted Pedal (L), no edema noted Pedal (R), no edema noted Generalized Neurologic: responsive, motor weakness Skin: normal pigmentation, warm/dry NITIN WAGONER Jul 17, 2016 14:24
[2016-07-17 16:00] VITALS: BP 128/62
--- NOTE | 2016-07-17 17:03 | Pulmonology Progress Note ---
Assessment/Plan Problems: (1) CAP (community acquired pneumonia) (2) Sepsis (3) Cavitary lesion of lung Assessment/Plan isolation sputum for afb TB gold, pending repeat cxr in am Subjective ROS Limited/Unobtainable: No Interval Events: feeling better, less cough, Allergies: Coded Allergies: No Known Allergies (Unverified , 07/12/16) Objective Last 24 Hour Vital Signs Date Time Temp Pulse Resp B/P Pulse Ox O2 Delivery O2 Flow Rate FiO2 07/17/16 11:58 97.9 86 19 97/59 97 Room Air 07/17/16 08:15 97.3 85 19 102/50 99 Room Air 07/17/16 07:25 Nasal Cannula 2.0 07/17/16 07:25 96 Nasal Cannula 2.0 07/17/16 04:00 97.8 60 20 109/72 97 Nasal Cannula 2.0 07/17/16 00:00 97.7 68 20 102/61 94 Room Air 07/16/16 20:05 95 Nasal Cannula 2.0 07/16/16 20:05 Nasal Cannula 2.0 07/16/16 19:00 96.8 81 20 101/62 96 Room Air Intake and Output 07/16/16 07/17/16 19:00 07:00 Intake Total 480 ml 588.708 ml Balance 480 ml 588.708 ml Intake Oral 480 ml 240 ml IV Total 348.708 ml # Voids 2 5 General Appearance: WD/WN HEENT: normocephalic, anicteric Respiratory/Chest: chest wall non-tender, lungs clear Cardiovascular: normal peripheral pulses, normal rate Abdomen: normal bowel sounds, soft, non tender Skin: no rash Laboratory Tests 07/17/16 05:50: White Blood Count 9.5, Red Blood Count 3.75L, Hemoglobin 11.2L, Hematocrit 32.7L , Mean Corpuscular Volume 87, Mean Corpuscular Hemoglobin 29.8, Mean Corpuscular Hemoglobin Concent 34.2, Red Cell Distribution Width 14.3, Platelet Count 469H, Mean Platelet Volume 6.3L, Neutrophils (%) (Auto) 75.0, Lymphocytes (%) (Auto) 17.0L, Monocytes (%) (Auto) 5.0, Eosinophils (%) (Auto) 2.3, Basophils (%) (Auto) 0.8, Sodium Level 139, Potassium Level 3.9, Chloride Level 103, Carbon Dioxide Level 23, Anion Gap 13, Blood Urea Nitrogen 10, Creatinine 0.9, Estimat Glomerular Filtration Rate > 60, Glucose Level 166H, Calcium Level 8.6 Current Medications Medications (Trade) Dose Ordered Sig/Richar Route PRN Reason Start Time Stop Time Status Last Admin Dose Admin Acetaminophen (Tylenol) 650 mg Q4H PRN ORAL fever 07/12/16 06:00 08/11/16 05:59 Al Hydroxide/Mg Hydroxide (Mylanta II) 30 ml Q6H PRN ORAL dyspepsia 07/12/16 06:00 08/11/16 05:59 Heparin Sodium (Porcine) (Heparin 5000 units/ml) 5,000 units EVERY 12 HOURS SUBQ 07/12/16 09:00 08/11/16 08:59 07/17/16 09:35 Levothyroxine Sodium 100 mcg 100 mcg DAILY@0630 ORAL 07/12/16 06:30 08/11/16 06:29 07/17/16 06:10 Nitroglycerin (Ntg) 0.4 mg Q5M PRN SL Prn Chest Pain 07/12/16 06:00 08/11/16 05:59 Ondansetron HCl (Zofran) 4 mg Q6H PRN IVP Nausea & Vomiting 07/12/16 06:00 08/11/16 05:59 Piperacillin Sod/ Tazobactam Sod 3.375 gm/Dextrose 110 ml @ 27.5 mls/hr Q8H IVPB 07/12/16 18:00 07/19/16 17:59 07/17/16 09:34 Polyethylene Glycol (Miralax) 17 gm DAILYPRN PRN ORAL Constipation 07/12/16 06:00 08/11/16 05:59 Promethazine HCl/ Codeine (Phenergan with Codeine) 5 ml Q4H PRN ORAL For Cough 07/12/16 06:00 08/11/16 05:59 07/16/16 21:08 Temazepam (Restoril) 15 mg HSPRN PRN ORAL Insomnia 07/12/16 06:00 07/19/16 05:59 Vancomycin HCl/ Dextrose (Vancomycin/D5W) 275 ml @ 183.708 mls/hr Q8H IVPB 07/14/16 06:30 07/19/16 06:29 07/17/16 14:16 KATHIA CATES Jul 17, 2016 17:03
--- NOTE | 2016-07-17 17:53 | Infectious Diseases Prog Note ---
Assessment/Plan Problems: (1) CAP (community acquired pneumonia) Assessment & Plan: with multifocal cavitary lesions suspect septic emboli VS fungal VS atypical mycobacterium, VS mets , T spot is pending, fungal serology in progress, continue vancomycin and zosyn empirically for now , screening for influenza is negative. may need bronchoscopy OR lung biopsy from the lesions if work up is negative . will order echo to rule out vegetations . (2) Sepsis Assessment & Plan: due to pneumonia, continue vancomycin and zosyn empirically for now, await blood culture (3) Diabetes mellitus Assessment & Plan: recommend tight glycemic control to keep blood glucose between 80-120 Subjective Constitutional: Reports: no symptoms HEENT: Reports: no symptoms Respiratory: Reports: dry cough Allergies: Coded Allergies: No Known Allergies (Unverified , 07/12/16) All Systems: reviewed and negative except above Objective Vital Signs Last 24 Hour Vital Signs Date Time Temp Pulse Resp B/P Pulse Ox O2 Delivery O2 Flow Rate FiO2 07/17/16 11:58 97.9 86 19 97/59 97 Room Air 07/17/16 08:15 97.3 85 19 102/50 99 Room Air 07/17/16 07:25 Nasal Cannula 2.0 07/17/16 07:25 96 Nasal Cannula 2.0 07/17/16 04:00 97.8 60 20 109/72 97 Nasal Cannula 2.0 07/17/16 00:00 97.7 68 20 102/61 94 Room Air 07/16/16 20:05 95 Nasal Cannula 2.0 07/16/16 20:05 Nasal Cannula 2.0 07/16/16 19:00 96.8 81 20 101/62 96 Room Air Height (Feet): 4 Height (Inches): 10.00 Weight (Pounds): 105 General Appearance: WD/WN, no acute distress HEENT: normocephalic, atraumatic, anicteric, mucous membranes moist Respiratory/Chest: chest wall non-tender, lungs clear, normal breath sounds, no respiratory distress, no accessory muscle use, decreased breath sounds Cardiovascular: normal peripheral pulses, normal rate, regular rhythm, no gallop/murmur, no JVD Abdomen: normal bowel sounds, soft, non tender, no organomegaly, non distended , no mass Extremities: no cyanosis, no clubbing Skin: no rash, no lesions, no ulcers Laboratory Tests Test 07/17/16 05:50 White Blood Count 9.5 K/UL (4.8-10.8) Red Blood Count 3.75 M/UL (4.20-5.40) L Hemoglobin 11.2 G/DL (12.0-16.0) L Hematocrit 32.7 % (37.0-47.0) L Mean Corpuscular Volume 87 FL (80-99) Mean Corpuscular Hemoglobin 29.8 PG (27.0-31.0) Mean Corpuscular Hemoglobin Concent 34.2 G/DL (32.0-36.0) Red Cell Distribution Width 14.3 % (11.6-14.8) Platelet Count 469 K/UL (150-450) H Mean Platelet Volume 6.3 FL (6.5-10.1) L Neutrophils (%) (Auto) 75.0 % (45.0-75.0) Lymphocytes (%) (Auto) 17.0 % (20.0-45.0) L Monocytes (%) (Auto) 5.0 % (1.0-10.0) Eosinophils (%) (Auto) 2.3 % (0.0-3.0) Basophils (%) (Auto) 0.8 % (0.0-2.0) Sodium Level 139 mEQ/L (135-145) Potassium Level 3.9 mEQ/L (3.4-4.9) Chloride Level 103 mEQ/L (98-107) Carbon Dioxide Level 23 mEQ/L (20-30) Anion Gap 13 (5-15) Blood Urea Nitrogen 10 mg/dL (7-23) Creatinine 0.9 mg/dL (0.5-0.9) Estimat Glomerular Filtration Rate > 60 mL/min (>60) Glucose Level 166 mg/dL (74-106) H Calcium Level 8.6 mg/dL (8.6-10.2) Current Medications Medications (Trade) Dose Ordered Sig/Richar Route PRN Reason Start Time Stop Time Status Last Admin Dose Admin Acetaminophen (Tylenol) 650 mg Q4H PRN ORAL fever 07/12/16 06:00 08/11/16 05:59 Al Hydroxide/Mg Hydroxide (Mylanta II) 30 ml Q6H PRN ORAL dyspepsia 07/12/16 06:00 08/11/16 05:59 Heparin Sodium (Porcine) (Heparin 5000 units/ml) 5,000 units EVERY 12 HOURS SUBQ 07/12/16 09:00 08/11/16 08:59 07/17/16 09:35 Levothyroxine Sodium 100 mcg 100 mcg DAILY@0630 ORAL 07/12/16 06:30 08/11/16 06:29 07/17/16 06:10 Nitroglycerin (Ntg) 0.4 mg Q5M PRN SL Prn Chest Pain 07/12/16 06:00 08/11/16 05:59 Ondansetron HCl (Zofran) 4 mg Q6H PRN IVP Nausea & Vomiting 07/12/16 06:00 08/11/16 05:59 Piperacillin Sod/ Tazobactam Sod 3.375 gm/Dextrose 110 ml @ 27.5 mls/hr Q8H IVPB 07/12/16 18:00 07/19/16 17:59 07/17/16 09:34 Polyethylene Glycol (Miralax) 17 gm DAILYPRN PRN ORAL Constipation 07/12/16 06:00 08/11/16 05:59 Promethazine HCl/ Codeine (Phenergan with Codeine) 5 ml Q4H PRN ORAL For Cough 07/12/16 06:00 08/11/16 05:59 07/16/16 21:08 Temazepam (Restoril) 15 mg HSPRN PRN ORAL Insomnia 07/12/16 06:00 07/19/16 05:59 Vancomycin HCl/ Dextrose (Vancomycin/D5W) 275 ml @ 183.708 mls/hr Q8H IVPB 07/14/16 06:30 07/19/16 06:29 07/17/16 14:16 Italo Nation M.D. Jul 17, 2016 17:53
[2016-07-17 20:00] VITALS: BP 126/62
[2016-07-17] MEDS: Promethazine/Codeine 5ml UD ORAL PRN (20:55)
[2016-07-18] VITALS: BP 102/59
[2016-07-18] MEDS: Piperacillin/Tazobactam 3.375 GM in D5W 110 ML IVPB SCH ×3 (01:58→19:10)
[2016-07-18 04:00] VITALS: BP 111/62
[2016-07-18] MEDS: Vancomycin 750mg/D5W 275ml IVPB SCH ×4 (05:59→14:47)
[2016-07-18 07:13] LABS: BASOPHILS % (AUTO) 0.9 % (0.0-2.0); EOSINOPHILS % (AUTO) 2.8 % (0.0-3.0); MEAN CORPUSCULAR HEMOGLOBIN 28.6 PG (27.0-31.0); MEAN CORPUSCULAR HGB CONC 32.8 G/DL (32.0-36.0); MEAN CORPUSCULAR VOLUME 87 FL (80-99); MEAN PLATELET VOLUME 6.1 FL (6.5-10.1); MONOCYTES % (AUTO) 5.8 % (1.0-10.0); NEUTROPHILS % (AUTO) 75.5 % (45.0-75.0); PLATELET COUNT 502 K/UL (150-450); RED BLOOD COUNT 4.08 M/UL (4.20-5.40); RED CELL DISTRIBUTION WIDTH 14.4 % (11.6-14.8); WHITE BLOOD COUNT 7.9 K/UL (4.8-10.8)
[2016-07-18 07:30] LABS: ALBUMIN/GLOBULIN RATIO 0.7 (1.0-2.7); CALCIUM 8.9 mg/dL (8.6-10.2); CREATININE 1.1 mg/dL (0.5-0.9); GLOMERULAR FILTRATION RATE 53.5 mL/min (>60); POTASSIUM 3.8 mEQ/L (3.4-4.9); TOTAL PROTEIN 6.9 g/dL (6.6-8.7)
[2016-07-18 08:11] VITALS: BP 99/60
[2016-07-18 08:56] LABS: BLASTOMYCES AB - ID Negative (Neg:<1:1); CRYPTOCOCCAL ANTIGEN SERUM Negative (Negative); HISTO AB MYCELIAL Negative (Neg:<1:2); HISTOPLASMA MYCELIAL ID AB Negative (Negative)
[2016-07-18] MEDS: Heparin 5000 units/ml inj SUBQ SCH ×2 (09:26→21:55)
[2016-07-18 11:45] VITALS: BP 98/59
--- NOTE | 2016-07-18 12:50 | General Progress Note ---
Assessment/Plan Problem List: (1) Nosocomial pneumonia ICD Codes: J18.9 - Pneumonia, unspecified organism SNOMED: 648145643 (2) Sepsis ICD Codes: A41.9 - Sepsis, unspecified organism SNOMED: 59425015 (3) CAP (community acquired pneumonia) ICD Codes: J18.9 - Pneumonia, unspecified organism SNOMED: 950599540 (4) Diabetes mellitus ICD Codes: E11.9 - Type 2 diabetes mellitus without complications SNOMED: 83447136 Status: stable, progressing, tolerating diet Assessment/Plan ot pt diet abx cbc bmp am dc plan Subjective Constitutional: Reports: weakness Respiratory: Reports: shortness of breath Allergies: Coded Allergies: No Known Allergies (Unverified , 07/12/16) All Systems: reviewed and negative except above Subjective 02nc sl sob Objective Last 24 Hour Vital Signs Date Time Temp Pulse Resp B/P Pulse Ox O2 Delivery O2 Flow Rate FiO2 07/18/16 11:45 97.9 86 21 98/59 97 Room Air 07/18/16 08:11 97.9 79 20 99/60 97 Room Air 07/18/16 04:00 97.2 72 18 111/62 96 Nasal Cannula 2.0 07/18/16 00:00 97.7 65 18 102/59 97 Nasal Cannula 2.0 07/17/16 20:00 97.8 70 18 126/62 100 Room Air 07/17/16 19:06 96 Nasal Cannula 2.0 28 07/17/16 19:06 Nasal Cannula 2.0 28 07/17/16 16:00 97.6 64 18 128/62 96 Room Air Intake and Output 07/17/16 07/18/16 19:00 07:00 Intake Total 1013.708 ml 765.000 ml Balance 1013.708 ml 765.000 ml Intake Oral 720 ml 380 ml IV Total 293.708 ml 385.000 ml # Voids 4 # Bowel Movements 1 Laboratory Tests 07/18/16 05:30: White Blood Count 7.9, Red Blood Count 4.08L, Hemoglobin 11.7L, Hematocrit 35.6L , Mean Corpuscular Volume 87, Mean Corpuscular Hemoglobin 28.6, Mean Corpuscular Hemoglobin Concent 32.8, Red Cell Distribution Width 14.4, Platelet Count 502H, Mean Platelet Volume 6.1L, Neutrophils (%) (Auto) 75.5H, Lymphocytes (%) (Auto) 15.0L, Monocytes (%) (Auto) 5.8, Eosinophils (%) (Auto) 2.8, Basophils (%) (Auto) 0.9, Sodium Level 140, Potassium Level 3.8, Chloride Level 101, Carbon Dioxide Level 24, Anion Gap 15, Blood Urea Nitrogen 11, Creatinine 1.1H, Estimat Glomerular Filtration Rate 53.5, Glucose Level 116H, Calcium Level 8.9, Total Bilirubin 0.3, Aspartate Amino Transf (AST/SGOT) 85H, Alanine Aminotransferase (ALT/SGPT) 88H, Alkaline Phosphatase 212H, Total Protein 6.9, Albumin 2.9L, Globulin 4.0, Albumin/Globulin Ratio 0.7L Height (Feet): 4 Height (Inches): 10.00 Weight (Pounds): 105 General Appearance: alert EENT: normal ENT inspection Neck: normal alignment Cardiovascular: normal peripheral pulses, normal rate, regular rhythm Respiratory/Chest: chest wall non-tender, lungs clear, normal breath sounds Abdomen: normal bowel sounds, non tender, soft Extremities: normal inspection Edema: no edema noted Arm (L), no edema noted Arm (R), no edema noted Leg (L), no edema noted Leg (R), no edema noted Pedal (L), no edema noted Pedal (R), no edema noted Generalized Neurologic: responsive, motor weakness Skin: normal pigmentation, warm/dry NITIN WAGONER Jul 18, 2016 12:50
--- NOTE | 2016-07-18 12:55 | Diagnostic Imaging Report ---
Indications: DYSPNEA Technique: Portable AP chest Findings: Comparison: 07/12/16 Linear and patchy opacities in the left mid and lower lung have significantly decreased with minimal basal residual. Right lung clear. Heart size, pulmonary vasculature within normal limits. No pleural abnormalities. IMPRESSION: Resolving atelectasis and/or pneumonia left lung base with some residual No new abnormality
[2016-07-18 16:00] VITALS: BP 100/58
--- NOTE | 2016-07-18 16:05 | Pulmonology Progress Note ---
Assessment/Plan Problems: (1) CAP (community acquired pneumonia) (2) Sepsis (3) Cavitary lesion of lung Assessment/Plan cxr much better isolation sputum for afb TB gold, pending repeat CT histo titer positive 1:8 Subjective ROS Limited/Unobtainable: No Interval Events: feeling better Allergies: Coded Allergies: No Known Allergies (Unverified , 07/12/16) Objective Last 24 Hour Vital Signs Date Time Temp Pulse Resp B/P Pulse Ox O2 Delivery O2 Flow Rate FiO2 07/18/16 11:45 97.9 86 21 98/59 97 Room Air 07/18/16 08:11 97.9 79 20 99/60 97 Room Air 07/18/16 04:00 97.2 72 18 111/62 96 Nasal Cannula 2.0 07/18/16 00:00 97.7 65 18 102/59 97 Nasal Cannula 2.0 07/17/16 20:00 97.8 70 18 126/62 100 Room Air 07/17/16 19:06 96 Nasal Cannula 2.0 28 07/17/16 19:06 Nasal Cannula 2.0 28 Intake and Output 07/17/16 07/18/16 19:00 07:00 Intake Total 1013.708 ml 765.000 ml Balance 1013.708 ml 765.000 ml Intake Oral 720 ml 380 ml IV Total 293.708 ml 385.000 ml # Voids 4 # Bowel Movements 1 General Appearance: WD/WN HEENT: atraumatic, anicteric Respiratory/Chest: chest wall non-tender, normal breath sounds Cardiovascular: regular rhythm Abdomen: normal bowel sounds, no organomegaly Genitourinary: normal external genitalia 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, no motor/sensory deficits Laboratory Tests 07/18/16 05:30: White Blood Count 7.9, Red Blood Count 4.08L, Hemoglobin 11.7L, Hematocrit 35.6L , Mean Corpuscular Volume 87, Mean Corpuscular Hemoglobin 28.6, Mean Corpuscular Hemoglobin Concent 32.8, Red Cell Distribution Width 14.4, Platelet Count 502H, Mean Platelet Volume 6.1L, Neutrophils (%) (Auto) 75.5H, Lymphocytes (%) (Auto) 15.0L, Monocytes (%) (Auto) 5.8, Eosinophils (%) (Auto) 2.8, Basophils (%) (Auto) 0.9, Sodium Level 140, Potassium Level 3.8, Chloride Level 101, Carbon Dioxide Level 24, Anion Gap 15, Blood Urea Nitrogen 11, Creatinine 1.1H, Estimat Glomerular Filtration Rate 53.5, Glucose Level 116H, Calcium Level 8.9, Total Bilirubin 0.3, Aspartate Amino Transf (AST/SGOT) 85H, Alanine Aminotransferase (ALT/SGPT) 88H, Alkaline Phosphatase 212H, Total Protein 6.9, Albumin 2.9L, Globulin 4.0, Albumin/Globulin Ratio 0.7L 07/18/16 15:00: Histoplasma Antigen [Pending] Current Medications Medications (Trade) Dose Ordered Sig/Richar Route PRN Reason Start Time Stop Time Status Last Admin Dose Admin Acetaminophen (Tylenol) 650 mg Q4H PRN ORAL fever 07/12/16 06:00 08/11/16 05:59 Al Hydroxide/Mg Hydroxide (Mylanta II) 30 ml Q6H PRN ORAL dyspepsia 07/12/16 06:00 08/11/16 05:59 Heparin Sodium (Porcine) (Heparin 5000 units/ml) 5,000 units EVERY 12 HOURS SUBQ 07/12/16 09:00 08/11/16 08:59 07/18/16 09:26 Levothyroxine Sodium 100 mcg 100 mcg DAILY@0630 ORAL 07/12/16 06:30 08/11/16 06:29 07/18/16 05:51 Nitroglycerin (Ntg) 0.4 mg Q5M PRN SL Prn Chest Pain 07/12/16 06:00 08/11/16 05:59 Ondansetron HCl (Zofran) 4 mg Q6H PRN IVP Nausea & Vomiting 07/12/16 06:00 08/11/16 05:59 Piperacillin Sod/ Tazobactam Sod 3.375 gm/Dextrose 110 ml @ 27.5 mls/hr Q8H IVPB 07/12/16 18:00 07/25/16 17:59 07/18/16 09:24 Polyethylene Glycol (Miralax) 17 gm DAILYPRN PRN ORAL Constipation 07/12/16 06:00 08/11/16 05:59 Promethazine HCl/ Codeine (Phenergan with Codeine) 5 ml Q4H PRN ORAL For Cough 07/12/16 06:00 08/11/16 05:59 07/17/16 20:55 Temazepam (Restoril) 15 mg HSPRN PRN ORAL Insomnia 07/12/16 06:00 07/19/16 05:59 Vancomycin HCl/ Dextrose (Vancomycin/D5W) 275 ml @ 183.708 mls/hr Q8H IVPB 07/14/16 06:30 07/25/16 06:29 07/18/16 14:47 KATHIA CATES Jul 18, 2016 16:05
[2016-07-18 19:00] VITALS: BP 98/58
--- NOTE | 2016-07-18 20:07 | Infectious Diseases Prog Note ---
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 screening for influenza is negative. may need bronchoscopy OR lung biopsy from the lesions if work up is negative . echo ruled out vegetations . (2) Sepsis Assessment & Plan: due to pneumonia, continue vancomycin and zosyn empirically for now, await blood culture (3) Diabetes mellitus Assessment & Plan: recommend tight glycemic control to keep blood glucose between 80-120 (4) KARMA (acute kidney injury) Assessment & Plan: will hold vancomycin, and check level, start IVF for hydration Subjective Respiratory: Reports: dry cough Allergies: Coded Allergies: No Known Allergies (Unverified , 07/12/16) All Systems: reviewed and negative except above Objective Vital Signs Last 24 Hour Vital Signs Date Time Temp Pulse Resp B/P Pulse Ox O2 Delivery O2 Flow Rate FiO2 07/18/16 16:00 97.7 86 20 100/58 96 Room Air 07/18/16 11:45 97.9 86 21 98/59 97 Room Air 07/18/16 08:11 97.9 79 20 99/60 97 Room Air 07/18/16 04:00 97.2 72 18 111/62 96 Nasal Cannula 2.0 07/18/16 00:00 97.7 65 18 102/59 97 Nasal Cannula 2.0 Height (Feet): 4 Height (Inches): 10.00 Weight (Pounds): 105 General Appearance: WD/WN, no acute distress HEENT: normocephalic, atraumatic, anicteric, mucous membranes moist Respiratory/Chest: chest wall non-tender, normal breath sounds, no respiratory distress, no accessory muscle use, decreased breath sounds, crackles/rales Cardiovascular: normal peripheral pulses, normal rate, regular rhythm, no gallop/murmur, no JVD Abdomen: normal bowel sounds, soft, non tender, no organomegaly, non distended , no mass, no scars Extremities: no cyanosis, no clubbing Skin: no rash, no lesions Laboratory Tests Test 07/18/16 05:30 07/18/16 15:00 White Blood Count 7.9 K/UL (4.8-10.8) Red Blood Count 4.08 M/UL (4.20-5.40) L Hemoglobin 11.7 G/DL (12.0-16.0) L Hematocrit 35.6 % (37.0-47.0) L Mean Corpuscular Volume 87 FL (80-99) Mean Corpuscular Hemoglobin 28.6 PG (27.0-31.0) Mean Corpuscular Hemoglobin Concent 32.8 G/DL (32.0-36.0) Red Cell Distribution Width 14.4 % (11.6-14.8) Platelet Count 502 K/UL (150-450) H Mean Platelet Volume 6.1 FL (6.5-10.1) L Neutrophils (%) (Auto) 75.5 % (45.0-75.0) H Lymphocytes (%) (Auto) 15.0 % (20.0-45.0) L Monocytes (%) (Auto) 5.8 % (1.0-10.0) Eosinophils (%) (Auto) 2.8 % (0.0-3.0) Basophils (%) (Auto) 0.9 % (0.0-2.0) Sodium Level 140 mEQ/L (135-145) Potassium Level 3.8 mEQ/L (3.4-4.9) Chloride Level 101 mEQ/L (98-107) Carbon Dioxide Level 24 mEQ/L (20-30) Anion Gap 15 (5-15) Blood Urea Nitrogen 11 mg/dL (7-23) Creatinine 1.1 mg/dL (0.5-0.9) H Estimat Glomerular Filtration Rate 53.5 mL/min (>60) Glucose Level 116 mg/dL (74-106) H Calcium Level 8.9 mg/dL (8.6-10.2) Total Bilirubin 0.3 mg/dL (0.0-1.2) Aspartate Amino Transf (AST/SGOT) 85 U/L (5-40) H Alanine Aminotransferase (ALT/SGPT) 88 U/L (3-33) H Alkaline Phosphatase 212 U/L (35-104) H Total Protein 6.9 g/dL (6.6-8.7) Albumin 2.9 g/dL (3.5-5.2) L Globulin 4.0 g/dL Albumin/Globulin Ratio 0.7 (1.0-2.7) L Histoplasma Antigen Pending Current Medications Medications (Trade) Dose Ordered Sig/Richar Route PRN Reason Start Time Stop Time Status Last Admin Dose Admin Acetaminophen (Tylenol) 650 mg Q4H PRN ORAL fever 07/12/16 06:00 08/11/16 05:59 Al Hydroxide/Mg Hydroxide (Mylanta II) 30 ml Q6H PRN ORAL dyspepsia 07/12/16 06:00 08/11/16 05:59 Heparin Sodium (Porcine) (Heparin 5000 units/ml) 5,000 units EVERY 12 HOURS SUBQ 07/12/16 09:00 08/11/16 08:59 07/18/16 09:26 Levothyroxine Sodium 100 mcg 100 mcg DAILY@0630 ORAL 07/12/16 06:30 08/11/16 06:29 07/18/16 05:51 Nitroglycerin (Ntg) 0.4 mg Q5M PRN SL Prn Chest Pain 07/12/16 06:00 08/11/16 05:59 Ondansetron HCl (Zofran) 4 mg Q6H PRN IVP Nausea & Vomiting 07/12/16 06:00 08/11/16 05:59 Piperacillin Sod/ Tazobactam Sod 3.375 gm/Dextrose 110 ml @ 27.5 mls/hr Q8H IVPB 07/12/16 18:00 07/25/16 17:59 07/18/16 19:10 Polyethylene Glycol (Miralax) 17 gm DAILYPRN PRN ORAL Constipation 07/12/16 06:00 08/11/16 05:59 Promethazine HCl/ Codeine (Phenergan with Codeine) 5 ml Q4H PRN ORAL For Cough 07/12/16 06:00 08/11/16 05:59 07/17/16 20:55 Temazepam (Restoril) 15 mg HSPRN PRN ORAL Insomnia 07/12/16 06:00 07/19/16 05:59 Vancomycin HCl/ Dextrose (Vancomycin/D5W) 275 ml @ 183.708 mls/hr Q8H IVPB 07/14/16 06:30 07/25/16 06:29 07/18/16 14:47 Italo Nation M.D. Jul 18, 2016 20:07
[2016-07-19] VITALS: BP 95/57
[2016-07-19] MEDS: Piperacillin/Tazobactam 3.375 GM in D5W 110 ML IVPB SCH ×3 (02:54→17:38)
[2016-07-19 04:00] VITALS: BP 94/55
[2016-07-19 06:38] LABS: BASOPHILS % (AUTO) 1.1 % (0.0-2.0); EOSINOPHILS % (AUTO) 3.2 % (0.0-3.0); LYMPHOCYTES % (AUTO) 18.6 % (20.0-45.0); MEAN CORPUSCULAR HEMOGLOBIN 29.1 PG (27.0-31.0); MEAN CORPUSCULAR HGB CONC 33.3 G/DL (32.0-36.0); MEAN CORPUSCULAR VOLUME 87 FL (80-99); MEAN PLATELET VOLUME 6.2 FL (6.5-10.1); MONOCYTES % (AUTO) 9.4 % (1.0-10.0); NEUTROPHILS % (AUTO) 67.6 % (45.0-75.0); PLATELET COUNT 420 K/UL (150-450); RED BLOOD COUNT 3.85 M/UL (4.20-5.40); RED CELL DISTRIBUTION WIDTH 14.3 % (11.6-14.8); WHITE BLOOD COUNT 6.9 K/UL (4.8-10.8)
[2016-07-19 07:07] LABS: CALCIUM 8.8 mg/dL (8.6-10.2); CREATININE 1.1 mg/dL (0.5-0.9); GLOMERULAR FILTRATION RATE 53.5 mL/min (>60); POTASSIUM 4.2 mEQ/L (3.4-4.9)
[2016-07-19 08:28] VITALS: BP 94/55
[2016-07-19] MEDS: Heparin 5000 units/ml inj SUBQ SCH ×2 (10:12→20:30)
--- NOTE | 2016-07-19 10:49 | Diagnostic Imaging Report ---
Clinical Indication: DYSPNEA, pneumonia, sepsis, cavitary lesion of lung Technique: Spiral acquisitions obtained through the chest. No IV contrast utilized, per referring physician request. Multiplanar reconstructions generated. Total dose length product 578 mGycm. CTDIvol(s) 17 mGy Comparison: 07/12/2016 Findings:Previously demonstrated multiple foci of parenchymal consolidation have partially decreased in size and density, leaving behind multiple cystic spaces. The smaller lesions catheter left behind a single cavity. The larger lesions left behind clusters of cavities. Most of the cavities appear to be parenchymal cystic spaces, although some of these could represent areas of cystic bronchiectasis. These are far more numerous on the left than on the right. The largest area of abnormality is in the inferior left upper lobe. This still demonstrates some parenchymal opacity in addition to the cystic spaces. There is a band of atelectasis in the inferior left lower lobe which is new since the prior study. There is a small area of groundglass opacity in the inferior left lower lobe periphery which was not evident previously. There is also a band of atelectasis in the posteromedial right lower lobe which is new since prior study. No new infiltrates. No effusions The heart size is normal. No evidence of pericardial effusion. No mediastinal or hilar mass or adenopathy. The included thyroid is unremarkable. No axillary or chest wall mass or adenopathy. The included upper abdominal anatomy is unremarkable Impression: Since 07/12/2016, interim marked decrease in size of bilateral parenchymal infiltrates, with extensive cavitation now present in essentially all of the previously demonstrated infiltrative lesions. Rapid progression of findings indicates this is is more likely to be an aggressive inflammatory/infectious process than a malignant process. As previously described, fungal infection and infection with acid-fast bacilli should be considered as possible etiologies. Aggressive necrotizing bacterial infection also a possibility. Correlate with clinical findings New faint area of groundglass infiltrate at the left lung base. New bibasilar atelectasis. No other new parenchymal disease is noted since the prior study. The CT scanner at [facility] is accredited by the [employer] and the scans are performed using protocols designed to limit radiation exposure to as low as reasonably achievable to attain images of sufficient resolution adequate for diagnostic evaluation.
[2016-07-19 11:44] VITALS: BP 94/49
--- NOTE | 2016-07-19 13:11 | General Progress Note ---
Assessment/Plan Problem List: (1) Nosocomial pneumonia ICD Codes: J18.9 - Pneumonia, unspecified organism SNOMED: 530514691 (2) Sepsis ICD Codes: A41.9 - Sepsis, unspecified organism SNOMED: 33096509 (3) CAP (community acquired pneumonia) ICD Codes: J18.9 - Pneumonia, unspecified organism SNOMED: 086036871 (4) Diabetes mellitus ICD Codes: E11.9 - Type 2 diabetes mellitus without complications SNOMED: 72246039 Status: stable, progressing, tolerating diet Assessment/Plan ot pt diet abx cbc bmp am dc plan Subjective Constitutional: Reports: weakness Allergies: Coded Allergies: No Known Allergies (Unverified , 07/12/16) All Systems: reviewed and negative except above Subjective 02nc sl sob Objective Last 24 Hour Vital Signs Date Time Temp Pulse Resp B/P Pulse Ox O2 Delivery O2 Flow Rate FiO2 07/19/16 11:44 98.1 97 14 94/49 95 Room Air 07/19/16 08:28 97.9 81 16 94/55 97 Room Air 07/19/16 04:00 97.7 72 18 94/55 96 Room Air 07/19/16 00:00 98.2 85 18 95/57 95 Nasal Cannula 2.0 07/18/16 19:00 96.8 85 20 98/58 96 Room Air 07/18/16 16:00 97.7 86 20 100/58 96 Room Air Intake and Output 07/18/16 07/19/16 19:00 07:00 Intake Total 480 ml 460.0 ml Balance 480 ml 460.0 ml Intake Oral 480 ml 240 ml IV Total 220.0 ml # Voids 5 Laboratory Tests 07/18/16 15:00: Histoplasma Antigen [Pending] 07/19/16 05:35: White Blood Count 6.9, Red Blood Count 3.85L, Hemoglobin 11.2L, Hematocrit 33.6L , Mean Corpuscular Volume 87, Mean Corpuscular Hemoglobin 29.1, Mean Corpuscular Hemoglobin Concent 33.3, Red Cell Distribution Width 14.3, Platelet Count 420, Mean Platelet Volume 6.2L, Neutrophils (%) (Auto) 67.6, Lymphocytes ( %) (Auto) 18.6L, Monocytes (%) (Auto) 9.4, Eosinophils (%) (Auto) 3.2H, Basophils (%) (Auto) 1.1, Sodium Level 141, Potassium Level 4.2, Chloride Level 102, Carbon Dioxide Level 25, Anion Gap 14, Blood Urea Nitrogen 9, Creatinine 1.1H, Estimat Glomerular Filtration Rate 53.5, Glucose Level 117H, Calcium Level 8.8 Height (Feet): 4 Height (Inches): 10.00 Weight (Pounds): 105 General Appearance: lethargic EENT: normal ENT inspection Neck: normal alignment Cardiovascular: normal peripheral pulses, normal rate, regular rhythm Respiratory/Chest: chest wall non-tender, lungs clear, decreased breath sounds Abdomen: normal bowel sounds, non tender, soft Extremities: normal inspection Edema: no edema noted Arm (L), no edema noted Arm (R), no edema noted Leg (L), no edema noted Leg (R), no edema noted Pedal (L), no edema noted Pedal (R), no edema noted Generalized Neurologic: responsive, motor weakness Skin: normal pigmentation, warm/dry NITIN WAGONER Jul 19, 2016 13:11
[2016-07-19 16:00] VITALS: BP 111/60
--- NOTE | 2016-07-19 17:35 | Infectious Diseases Prog Note ---
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 screening for influenza is negative. may need bronchoscopy OR lung biopsy from the lesions if work up is negative . echo ruled out vegetations . (2) Sepsis Assessment & Plan: due to pneumonia, continue vancomycin and zosyn empirically for now, await blood culture (3) Diabetes mellitus Assessment & Plan: recommend tight glycemic control to keep blood glucose between 80-120 (4) KARMA (acute kidney injury) Assessment & Plan: will hold vancomycin, and check level, start IVF for hydration Subjective Respiratory: Reports: dry cough Allergies: Coded Allergies: No Known Allergies (Unverified , 07/12/16) All Systems: reviewed and negative except above Subjective she was feeling better. Objective Vital Signs Last 24 Hour Vital Signs Date Time Temp Pulse Resp B/P Pulse Ox O2 Delivery O2 Flow Rate FiO2 07/19/16 16:18 95 2.0 28 07/19/16 16:18 Nasal Cannula 2.0 28 07/19/16 16:00 97.3 87 18 111/60 95 Room Air 07/19/16 11:44 98.1 97 14 94/49 95 Room Air 07/19/16 08:28 97.9 81 16 94/55 97 Room Air 07/19/16 04:00 97.7 72 18 94/55 96 Room Air 07/19/16 00:00 98.2 85 18 95/57 95 Nasal Cannula 2.0 07/18/16 19:00 96.8 85 20 98/58 96 Room Air Height (Feet): 4 Height (Inches): 10.00 Weight (Pounds): 105 General Appearance: WD/WN, no acute distress HEENT: normocephalic, atraumatic, anicteric, mucous membranes moist, PERRL Respiratory/Chest: chest wall non-tender, normal breath sounds, no respiratory distress, no accessory muscle use Cardiovascular: normal peripheral pulses, normal rate, regular rhythm, no gallop/murmur, no JVD Abdomen: normal bowel sounds, soft, non tender, no organomegaly, non distended , no mass, no scars Extremities: no cyanosis, no clubbing Skin: no rash, no lesions, no ulcers Microbiology Date/Time Source Procedure Growth Status 07/18/16 15:00 Sputum AFB Specimen Processing Tissue - Final Resulted 07/18/16 15:00 Sputum Acid Fast Bacilli Smear - Final Resulted 07/18/16 15:00 Sputum Acid Fast Bacilli Culture Pending Resulted Laboratory Tests Test 07/19/16 05:35 White Blood Count 6.9 K/UL (4.8-10.8) Red Blood Count 3.85 M/UL (4.20-5.40) L Hemoglobin 11.2 G/DL (12.0-16.0) L Hematocrit 33.6 % (37.0-47.0) L Mean Corpuscular Volume 87 FL (80-99) Mean Corpuscular Hemoglobin 29.1 PG (27.0-31.0) Mean Corpuscular Hemoglobin Concent 33.3 G/DL (32.0-36.0) Red Cell Distribution Width 14.3 % (11.6-14.8) Platelet Count 420 K/UL (150-450) Mean Platelet Volume 6.2 FL (6.5-10.1) L Neutrophils (%) (Auto) 67.6 % (45.0-75.0) Lymphocytes (%) (Auto) 18.6 % (20.0-45.0) L Monocytes (%) (Auto) 9.4 % (1.0-10.0) Eosinophils (%) (Auto) 3.2 % (0.0-3.0) H Basophils (%) (Auto) 1.1 % (0.0-2.0) Sodium Level 141 mEQ/L (135-145) Potassium Level 4.2 mEQ/L (3.4-4.9) Chloride Level 102 mEQ/L (98-107) Carbon Dioxide Level 25 mEQ/L (20-30) Anion Gap 14 (5-15) Blood Urea Nitrogen 9 mg/dL (7-23) Creatinine 1.1 mg/dL (0.5-0.9) H Estimat Glomerular Filtration Rate 53.5 mL/min (>60) Glucose Level 117 mg/dL (74-106) H Calcium Level 8.8 mg/dL (8.6-10.2) Current Medications Medications (Trade) Dose Ordered Sig/Richar Route PRN Reason Start Time Stop Time Status Last Admin Dose Admin Acetaminophen (Tylenol) 650 mg Q4H PRN ORAL fever 07/12/16 06:00 08/11/16 05:59 Al Hydroxide/Mg Hydroxide (Mylanta II) 30 ml Q6H PRN ORAL dyspepsia 07/12/16 06:00 08/11/16 05:59 Heparin Sodium (Porcine) (Heparin 5000 units/ml) 5,000 units EVERY 12 HOURS SUBQ 07/12/16 09:00 08/11/16 08:59 07/19/16 10:12 Levothyroxine Sodium 100 mcg 100 mcg DAILY@0630 ORAL 07/12/16 06:30 08/11/16 06:29 07/19/16 06:26 Nitroglycerin (Ntg) 0.4 mg Q5M PRN SL Prn Chest Pain 07/12/16 06:00 08/11/16 05:59 Ondansetron HCl (Zofran) 4 mg Q6H PRN IVP Nausea & Vomiting 07/12/16 06:00 08/11/16 05:59 Piperacillin Sod/ Tazobactam Sod/ Dextrose (Zosyn/D5W) 110 ml @ 27.5 mls/hr Q8H IVPB 07/12/16 18:00 07/25/16 17:59 07/19/16 10:10 Polyethylene Glycol (Miralax) 17 gm DAILYPRN PRN ORAL Constipation 07/12/16 06:00 08/11/16 05:59 Promethazine HCl/ Codeine (Phenergan with Codeine) 5 ml Q4H PRN ORAL For Cough 07/12/16 06:00 08/11/16 05:59 07/17/16 20:55 Italo Nation M.D. Jul 19, 2016 17:35
[2016-07-19 20:00] VITALS: BP 106/70
[2016-07-19 20:09] LABS: MTB PROCESSING Concentration (.)
[2016-07-20] VITALS: BP 100/60
[2016-07-20] MEDS: Piperacillin/Tazobactam 3.375 GM in D5W 110 ML IVPB SCH ×3 (02:16→19:24)
[2016-07-20 04:00] VITALS: BP 101/66
[2016-07-20 07:13] LABS: BASOPHILS % (AUTO) 1.4 % (0.0-2.0); EOSINOPHILS % (AUTO) 3.2 % (0.0-3.0); LYMPHOCYTES % (AUTO) 20.9 % (20.0-45.0); MEAN CORPUSCULAR HEMOGLOBIN 28.8 PG (27.0-31.0); MEAN CORPUSCULAR HGB CONC 32.7 G/DL (32.0-36.0); MEAN CORPUSCULAR VOLUME 88 FL (80-99); MEAN PLATELET VOLUME 6.5 FL (6.5-10.1); MONOCYTES % (AUTO) 8.4 % (1.0-10.0); NEUTROPHILS % (AUTO) 66.1 % (45.0-75.0); PLATELET COUNT 407 K/UL (150-450); RED CELL DISTRIBUTION WIDTH 14.9 % (11.6-14.8); WHITE BLOOD COUNT 5.6 K/UL (4.8-10.8)
[2016-07-20 07:33] LABS: CALCIUM 9.1 mg/dL (8.6-10.2); GLOMERULAR FILTRATION RATE 59.7 mL/min (>60); POTASSIUM 4.3 mEQ/L (3.4-4.9)
--- NOTE | 2016-07-20 08:23 | General Progress Note ---
Assessment/Plan Problem List: (1) Nosocomial pneumonia ICD Codes: J18.9 - Pneumonia, unspecified organism SNOMED: 510169894 (2) Sepsis ICD Codes: A41.9 - Sepsis, unspecified organism SNOMED: 49815396 (3) CAP (community acquired pneumonia) ICD Codes: J18.9 - Pneumonia, unspecified organism SNOMED: 309083787 (4) Diabetes mellitus ICD Codes: E11.9 - Type 2 diabetes mellitus without complications SNOMED: 54136776 Status: stable, progressing, tolerating diet Assessment/Plan ot pt diet abx cbc bmp am dc plan Subjective Constitutional: Reports: weakness Allergies: Coded Allergies: No Known Allergies (Unverified , 07/12/16) All Systems: reviewed and negative except above Subjective 02nc sl sob Objective Last 24 Hour Vital Signs Date Time Temp Pulse Resp B/P Pulse Ox O2 Delivery O2 Flow Rate FiO2 07/20/16 04:00 97.5 68 18 101/66 96 Nasal Cannula 2.0 07/20/16 00:00 97.9 68 18 100/60 97 Room Air 07/19/16 20:00 98.2 78 18 106/70 97 Room Air 07/19/16 16:18 95 2.0 28 07/19/16 16:18 Nasal Cannula 2.0 28 07/19/16 16:00 97.3 87 18 111/60 95 Room Air 07/19/16 11:44 98.1 97 14 94/49 95 Room Air 07/19/16 08:28 97.9 81 16 94/55 97 Room Air Intake and Output 07/19/16 07/20/16 19:00 07:00 Intake Total 1000 ml 335.0 ml Balance 1000 ml 335.0 ml Intake Oral 1000 ml IV Total 335.0 ml # Voids 2 2 Laboratory Tests 07/20/16 06:10: White Blood Count 5.6, Red Blood Count 3.80L, Hemoglobin 10.9L, Hematocrit 33.5L , Mean Corpuscular Volume 88, Mean Corpuscular Hemoglobin 28.8, Mean Corpuscular Hemoglobin Concent 32.7, Red Cell Distribution Width 14.9H, Platelet Count 407, Mean Platelet Volume 6.5, Neutrophils (%) (Auto) 66.1, Lymphocytes (%) (Auto) 20.9, Monocytes (%) (Auto) 8.4, Eosinophils (%) (Auto) 3.2H, Basophils (%) (Auto) 1.4, Sodium Level 140, Potassium Level 4.3, Chloride Level 101, Carbon Dioxide Level 23, Anion Gap 16H, Blood Urea Nitrogen 10, Creatinine 1.0H, Estimat Glomerular Filtration Rate 59.7, Glucose Level 123H, Calcium Level 9.1 Height (Feet): 4 Height (Inches): 10.00 Weight (Pounds): 105 General Appearance: lethargic EENT: normal ENT inspection Neck: normal alignment Cardiovascular: normal peripheral pulses, normal rate, regular rhythm Respiratory/Chest: chest wall non-tender, lungs clear, decreased breath sounds Abdomen: normal bowel sounds, non tender, soft Extremities: normal inspection Edema: no edema noted Arm (L), no edema noted Arm (R), no edema noted Leg (L), no edema noted Leg (R), no edema noted Pedal (L), no edema noted Pedal (R), no edema noted Generalized Neurologic: motor weakness Skin: normal pigmentation, warm/dry NITIN WAGONER Jul 20, 2016 08:23
[2016-07-20 08:34] VITALS: BP 99/66
[2016-07-20] MEDS: Heparin 5000 units/ml inj SUBQ SCH ×2 (10:38→21:55)
[2016-07-20] MEDS ORDERED: Tubing IV Secondary IV ONE (10:53)
[2016-07-20] MEDS ORDERED: NS 550ML IV ONE (10:53)
[2016-07-20 11:48] VITALS: BP 98/57
--- NOTE | 2016-07-20 15:59 | Pulmonology Progress Note ---
Assessment/Plan Assessment/Plan ASSESSMENT sepsis CAP , possible atypical multifocal PNA ? Histoplasmosis PNA cavitary lesion hypothyroidism elevated LFT PLAN OF CARE respiratory isolation O2 HHN prn sputum AFB x 2 negative tests for TB -pending fungal serology noted , + Histoplasmosis 1:8, urine antigen for Histoplasmosis pending, Itraconazole on hold due to elevated LFT ( per ID) fup CT chest with marked improvement abx, ID follows , sputum cx negative , blood cx negative, urine cx negative IVF renal parameters down to normal ECHO with preserved EF 60-65% , no evidence of vegetation DVT prophylaxis antitussive prn case discussed and evaluated by supervising physician Subjective Allergies: Coded Allergies: No Known Allergies (Unverified , 07/12/16) Subjective reports feeling better, less cough, no congestion, no hemoptysis, minimally productive cough, no wheezing, no SOB Objective Last 24 Hour Vital Signs Date Time Temp Pulse Resp B/P Pulse Ox O2 Delivery O2 Flow Rate FiO2 07/20/16 11:48 97.8 77 14 98/57 99 07/20/16 08:34 97.7 75 15 99/66 98 Room Air 07/20/16 04:00 97.5 68 18 101/66 96 Nasal Cannula 2.0 07/20/16 00:00 97.9 68 18 100/60 97 Room Air 07/19/16 20:00 98.2 78 18 106/70 97 Room Air 07/19/16 16:18 95 2.0 28 07/19/16 16:18 Nasal Cannula 2.0 28 07/19/16 16:00 97.3 87 18 111/60 95 Room Air Intake and Output 07/19/16 07/20/16 19:00 07:00 Intake Total 1000 ml 335.0 ml Balance 1000 ml 335.0 ml Intake Oral 1000 ml IV Total 335.0 ml # Voids 2 2 General Appearance: WD/WN, no acute distress HEENT: normocephalic, atraumatic, anicteric, mucous membranes moist, PERRL Respiratory/Chest: chest wall non-tender, lungs clear - with moderate air entry , normal breath sounds, no respiratory distress, no accessory muscle use Cardiovascular: normal peripheral pulses, normal rate, regular rhythm, no JVD Abdomen: normal bowel sounds, soft, non tender, non distended Extremities: no edema, pedal pulses normal Neurologic/Psychiatric: non destructive tester II-XII grossly normal, no motor/sensory deficits, alert, oriented x 3, responsive Musculoskeletal: normal muscle bulk Microbiology Date/Time Source Procedure Growth Status 07/18/16 15:00 Sputum AFB Specimen Processing Tissue - Final Resulted 07/18/16 15:00 Sputum Acid Fast Bacilli Smear - Final Resulted 07/18/16 15:00 Sputum Acid Fast Bacilli Culture Pending Resulted Laboratory Tests 07/20/16 06:10: White Blood Count 5.6, Red Blood Count 3.80L, Hemoglobin 10.9L, Hematocrit 33.5L , Mean Corpuscular Volume 88, Mean Corpuscular Hemoglobin 28.8, Mean Corpuscular Hemoglobin Concent 32.7, Red Cell Distribution Width 14.9H, Platelet Count 407, Mean Platelet Volume 6.5, Neutrophils (%) (Auto) 66.1, Lymphocytes (%) (Auto) 20.9, Monocytes (%) (Auto) 8.4, Eosinophils (%) (Auto) 3.2H, Basophils (%) (Auto) 1.4, Sodium Level 140, Potassium Level 4.3, Chloride Level 101, Carbon Dioxide Level 23, Anion Gap 16H, Blood Urea Nitrogen 10, Creatinine 1.0H, Estimat Glomerular Filtration Rate 59.7, Glucose Level 123H, Calcium Level 9.1 Current Medications Medications (Trade) Dose Ordered Sig/Richar Route PRN Reason Start Time Stop Time Status Last Admin Dose Admin Acetaminophen (Tylenol) 650 mg Q4H PRN ORAL fever 07/12/16 06:00 08/11/16 05:59 Al Hydroxide/Mg Hydroxide (Mylanta II) 30 ml Q6H PRN ORAL dyspepsia 07/12/16 06:00 08/11/16 05:59 Heparin Sodium (Porcine) (Heparin 5000 units/ml) 5,000 units EVERY 12 HOURS SUBQ 07/12/16 09:00 08/11/16 08:59 07/20/16 10:38 Levothyroxine Sodium 100 mcg 100 mcg DAILY@0630 ORAL 07/12/16 06:30 08/11/16 06:29 07/20/16 06:51 Nitroglycerin (Ntg) 0.4 mg Q5M PRN SL Prn Chest Pain 07/12/16 06:00 08/11/16 05:59 Ondansetron HCl (Zofran) 4 mg Q6H PRN IVP Nausea & Vomiting 07/12/16 06:00 08/11/16 05:59 Piperacillin Sod/ Tazobactam Sod 3.375 gm/Dextrose 110 ml @ 27.5 mls/hr Q8H IVPB 07/12/16 18:00 07/25/16 17:59 07/20/16 10:38 Polyethylene Glycol (Miralax) 17 gm DAILYPRN PRN ORAL Constipation 07/12/16 06:00 08/11/16 05:59 Promethazine HCl/ Codeine (Phenergan with Codeine) 5 ml Q4H PRN ORAL For Cough 07/12/16 06:00 08/11/16 05:59 07/17/16 20:55 Sodium Chloride (0.45% NS 1000ml) 1,000 ml @ 75 mls/hr [id number] IV 07/19/16 17:45 08/18/16 17:44 07/20/16 06:51 Bogdan ([facility]),Beena [employer] Jul 20, 2016 15:59
[2016-07-20 16:06] VITALS: BP 126/63
--- NOTE | 2016-07-20 16:09 | Infectious Diseases Prog Note ---
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 screening for influenza is negative. will screen for vasculitis as an etiology since her repeated CT chest showed worsening necrotizing lesion , may need bronchoscopy OR lung biopsy from the lesions if work up is negative . echo ruled out vegetations . (2) Sepsis Assessment & Plan: due to pneumonia, continue vancomycin and zosyn empirically for now, await blood culture (3) Diabetes mellitus Assessment & Plan: recommend tight glycemic control to keep blood glucose between 80-120 (4) KARMA (acute kidney injury) Assessment & Plan: will D/C vancomycin, and check level, continue IVF for hydration Subjective Constitutional: Reports: fatigue Respiratory: Reports: dry cough Allergies: Coded Allergies: No Known Allergies (Unverified , 07/12/16) All Systems: reviewed and negative except above Subjective she was feeling better. Objective Vital Signs Last 24 Hour Vital Signs Date Time Temp Pulse Resp B/P Pulse Ox O2 Delivery O2 Flow Rate FiO2 07/20/16 11:48 97.8 77 14 98/57 99 07/20/16 08:34 97.7 75 15 99/66 98 Room Air 07/20/16 04:00 97.5 68 18 101/66 96 Nasal Cannula 2.0 07/20/16 00:00 97.9 68 18 100/60 97 Room Air 07/19/16 20:00 98.2 78 18 106/70 97 Room Air 07/19/16 16:18 95 2.0 28 07/19/16 16:18 Nasal Cannula 2.0 28 07/19/16 16:00 97.3 87 18 111/60 95 Room Air Height (Feet): 4 Height (Inches): 10.00 Weight (Pounds): 105 General Appearance: WD/WN, no acute distress HEENT: normocephalic, atraumatic, anicteric, mucous membranes moist, PERRL Respiratory/Chest: chest wall non-tender, normal breath sounds, no respiratory distress, no accessory muscle use, decreased breath sounds, crackles/rales Cardiovascular: normal peripheral pulses, normal rate, regular rhythm, no gallop/murmur, no JVD Abdomen: normal bowel sounds, soft, non tender, no organomegaly, non distended , no mass, no scars Extremities: no cyanosis, no clubbing Skin: no rash, no lesions Microbiology Date/Time Source Procedure Growth Status 07/18/16 15:00 Sputum AFB Specimen Processing Tissue - Final Resulted 07/18/16 15:00 Sputum Acid Fast Bacilli Smear - Final Resulted 07/18/16 15:00 Sputum Acid Fast Bacilli Culture Pending Resulted Laboratory Tests Test 07/20/16 06:10 White Blood Count 5.6 K/UL (4.8-10.8) Red Blood Count 3.80 M/UL (4.20-5.40) L Hemoglobin 10.9 G/DL (12.0-16.0) L Hematocrit 33.5 % (37.0-47.0) L Mean Corpuscular Volume 88 FL (80-99) Mean Corpuscular Hemoglobin 28.8 PG (27.0-31.0) Mean Corpuscular Hemoglobin Concent 32.7 G/DL (32.0-36.0) Red Cell Distribution Width 14.9 % (11.6-14.8) H Platelet Count 407 K/UL (150-450) Mean Platelet Volume 6.5 FL (6.5-10.1) Neutrophils (%) (Auto) 66.1 % (45.0-75.0) Lymphocytes (%) (Auto) 20.9 % (20.0-45.0) Monocytes (%) (Auto) 8.4 % (1.0-10.0) Eosinophils (%) (Auto) 3.2 % (0.0-3.0) H Basophils (%) (Auto) 1.4 % (0.0-2.0) Sodium Level 140 mEQ/L (135-145) Potassium Level 4.3 mEQ/L (3.4-4.9) Chloride Level 101 mEQ/L (98-107) Carbon Dioxide Level 23 mEQ/L (20-30) Anion Gap 16 (5-15) H Blood Urea Nitrogen 10 mg/dL (7-23) Creatinine 1.0 mg/dL (0.5-0.9) H Estimat Glomerular Filtration Rate 59.7 mL/min (>60) Glucose Level 123 mg/dL (74-106) H Calcium Level 9.1 mg/dL (8.6-10.2) Current Medications Medications (Trade) Dose Ordered Sig/Richar Route PRN Reason Start Time Stop Time Status Last Admin Dose Admin Acetaminophen (Tylenol) 650 mg Q4H PRN ORAL fever 07/12/16 06:00 08/11/16 05:59 Al Hydroxide/Mg Hydroxide (Mylanta II) 30 ml Q6H PRN ORAL dyspepsia 07/12/16 06:00 08/11/16 05:59 Heparin Sodium (Porcine) (Heparin 5000 units/ml) 5,000 units EVERY 12 HOURS SUBQ 07/12/16 09:00 08/11/16 08:59 07/20/16 10:38 Levothyroxine Sodium 100 mcg 100 mcg DAILY@0630 ORAL 07/12/16 06:30 08/11/16 06:29 07/20/16 06:51 Nitroglycerin (Ntg) 0.4 mg Q5M PRN SL Prn Chest Pain 07/12/16 06:00 08/11/16 05:59 Ondansetron HCl (Zofran) 4 mg Q6H PRN IVP Nausea & Vomiting 07/12/16 06:00 08/11/16 05:59 Piperacillin Sod/ Tazobactam Sod 3.375 gm/Dextrose 110 ml @ 27.5 mls/hr Q8H IVPB 07/12/16 18:00 07/25/16 17:59 07/20/16 10:38 Polyethylene Glycol (Miralax) 17 gm DAILYPRN PRN ORAL Constipation 07/12/16 06:00 08/11/16 05:59 Promethazine HCl/ Codeine (Phenergan with Codeine) 5 ml Q4H PRN ORAL For Cough 07/12/16 06:00 08/11/16 05:59 07/17/16 20:55 Sodium Chloride (0.45% NS 1000ml) 1,000 ml @ 75 mls/hr [id number] IV 07/19/16 17:45 08/18/16 17:44 07/20/16 06:51 Italo Nation M.D. Jul 20, 2016 16:09
[2016-07-20] MEDS ORDERED: DuoNeb 0.5-3(2.5)mg/3ml neb HHN PRN (16:15)
[2016-07-20 17:06] LABS: ALANINE AMINOTRANSFERASE 93 U/L (3-33); ASPARTATE AMINO TRANSFERASE 69 U/L (5-40); BILIRUBIN,DIRECT 0.1 mg/dL (0.1-0.3); HEMOLYSIS 14; TOTAL PROTEIN 6.7 g/dL (6.6-8.7)
[2016-07-20] MEDS: Doxycycline Hyclate 100 MG in D5W 110 ML IV SCH (17:44)
[2016-07-20 20:00] VITALS: BP 121/65
[2016-07-20] MEDS: Promethazine/Codeine 5ml UD ORAL PRN (22:14)
[2016-07-21] VITALS: BP 127/75
[2016-07-21] MEDS: Piperacillin/Tazobactam 3.375 GM in D5W 110 ML IVPB SCH ×3 (02:40→18:02)
[2016-07-21 04:00] VITALS: BP 129/78
[2016-07-21 07:16] LABS: BASOPHILS % (AUTO) 1.3 % (0.0-2.0); EOSINOPHILS % (AUTO) 3.2 % (0.0-3.0); LYMPHOCYTES % (AUTO) 27.4 % (20.0-45.0); MEAN CORPUSCULAR HEMOGLOBIN 28.3 PG (27.0-31.0); MEAN CORPUSCULAR HGB CONC 32.1 G/DL (32.0-36.0); MEAN CORPUSCULAR VOLUME 88 FL (80-99); MEAN PLATELET VOLUME 6.5 FL (6.5-10.1); MONOCYTES % (AUTO) 11.3 % (1.0-10.0); NEUTROPHILS % (AUTO) 56.9 % (45.0-75.0); PLATELET COUNT 368 K/UL (150-450); RED BLOOD COUNT 3.91 M/UL (4.20-5.40); RED CELL DISTRIBUTION WIDTH 15.1 % (11.6-14.8); WHITE BLOOD COUNT 5.2 K/UL (4.8-10.8)
[2016-07-21] MEDS: Heparin 5000 units/ml inj SUBQ SCH ×2 (08:03→21:16)
[2016-07-21] MEDS: Doxycycline Hyclate 100 MG in D5W 110 ML IV SCH (08:05)
--- NOTE | 2016-07-21 08:06 | General Progress Note ---
Assessment/Plan Problem List: (1) Nosocomial pneumonia ICD Codes: J18.9 - Pneumonia, unspecified organism SNOMED: 429268192 (2) Sepsis ICD Codes: A41.9 - Sepsis, unspecified organism SNOMED: 21126137 (3) CAP (community acquired pneumonia) ICD Codes: J18.9 - Pneumonia, unspecified organism SNOMED: 361299735 (4) Diabetes mellitus ICD Codes: E11.9 - Type 2 diabetes mellitus without complications SNOMED: 07083910 Status: stable, progressing, tolerating diet Assessment/Plan ot pt diet abx cbc bmp am dc plan Subjective Constitutional: Reports: weakness Allergies: Coded Allergies: No Known Allergies (Unverified , 07/12/16) All Systems: reviewed and negative except above Subjective 02nc sl sob Objective Last 24 Hour Vital Signs Date Time Temp Pulse Resp B/P Pulse Ox O2 Delivery O2 Flow Rate FiO2 07/21/16 04:00 98.2 85 20 129/78 97 Room Air 07/21/16 00:00 97.0 87 20 127/75 97 Room Air 07/20/16 20:00 96.3 96 20 121/65 96 Room Air 07/20/16 19:20 Nasal Cannula 2.0 28 07/20/16 19:18 96 Nasal Cannula 2.0 28 07/20/16 16:06 97.5 72 15 126/63 98 Room Air 07/20/16 11:48 97.8 77 14 98/57 99 07/20/16 08:34 97.7 75 15 99/66 98 Room Air Intake and Output 07/20/16 07/21/16 19:00 07:00 Intake Total 1735 ml 805.0 ml Balance 1735 ml 805.0 ml Intake Oral 1400 ml 360 ml IV Total 335 ml 445.0 ml # Voids 3 4 # Bowel Movements 1 Laboratory Tests 07/21/16 05:35: White Blood Count 5.2, Red Blood Count 3.91L, Hemoglobin 11.1L, Hematocrit 34.5L , Mean Corpuscular Volume 88, Mean Corpuscular Hemoglobin 28.3, Mean Corpuscular Hemoglobin Concent 32.1, Red Cell Distribution Width 15.1H, Platelet Count 368, Mean Platelet Volume 6.5, Neutrophils (%) (Auto) 56.9, Lymphocytes (%) (Auto) 27.4, Monocytes (%) (Auto) 11.3H, Eosinophils (%) (Auto) 3.2H, Basophils (%) (Auto) 1.3, Sodium Level [Pending], Potassium Level [Pending ], Chloride Level [Pending], Carbon Dioxide Level [Pending], Blood Urea Nitrogen [Pending], Creatinine [Pending], Estimat Glomerular Filtration Rate [ Pending], Glucose Level [Pending], Calcium Level [Pending], Total Bilirubin [ Pending], Aspartate Amino Transf (AST/SGOT) [Pending], Alanine Aminotransferase (ALT/SGPT) [Pending], Alkaline Phosphatase [Pending], Total Protein [Pending], Albumin [Pending], Globulin [Pending] Height (Feet): 4 Height (Inches): 10.00 Weight (Pounds): 105 General Appearance: lethargic EENT: normal ENT inspection Neck: normal alignment Cardiovascular: normal rate Respiratory/Chest: chest wall non-tender, lungs clear, normal breath sounds Abdomen: normal bowel sounds, non tender, soft Extremities: normal inspection Edema: no edema noted Arm (L), no edema noted Arm (R), no edema noted Leg (L), no edema noted Leg (R), no edema noted Pedal (L), no edema noted Pedal (R), no edema noted Generalized Neurologic: responsive, motor weakness Skin: normal pigmentation, warm/dry NITIN WAGONER Jul 21, 2016 08:06
[2016-07-21 08:07] LABS: ALBUMIN/GLOBULIN RATIO 0.9 (1.0-2.7); CREATININE 1.1 mg/dL (0.5-0.9); GLOMERULAR FILTRATION RATE 53.5 mL/min (>60); POTASSIUM 4.4 mEQ/L (3.4-4.9); TOTAL PROTEIN 6.7 g/dL (6.6-8.7)
[2016-07-21 08:32] VITALS: BP 97/62
[2016-07-21 11:59] VITALS: BP 101/66
--- NOTE | 2016-07-21 12:14 | Pulmonology Progress Note ---
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, urine antigen for Histoplasmosis pending, Itraconazole on hold due to elevated LFT ( per ID) fup CT chest with marked improvement abx, ID follows , sputum cx negative , blood cx negative, urine cx negative CXR in am IVF decrease rate to 50 renal parameters down to normal ECHO with preserved EF 60-65% , no evidence of vegetation DVT prophylaxis antitussive prn case discussed and evaluated by supervising physician Subjective Allergies: Coded Allergies: No Known Allergies (Unverified , 07/12/16) Subjective patient feeling better, less cough, no congestion, no hemoptysis, no wheezing minimally productive cough, no SOB Objective Last 24 Hour Vital Signs Date Time Temp Pulse Resp B/P Pulse Ox O2 Delivery O2 Flow Rate FiO2 07/21/16 11:59 97.0 83 15 101/66 98 Room Air 07/21/16 08:32 97.0 89 15 97/62 99 Room Air 07/21/16 07:04 Nasal Cannula 2.0 07/21/16 07:04 98 Nasal Cannula 2.0 07/21/16 04:00 98.2 85 20 129/78 97 Room Air 07/21/16 00:00 97.0 87 20 127/75 97 Room Air 07/20/16 20:00 96.3 96 20 121/65 96 Room Air 07/20/16 19:20 Nasal Cannula 2.0 28 07/20/16 19:18 96 Nasal Cannula 2.0 28 07/20/16 16:06 97.5 72 15 126/63 98 Room Air Intake and Output 07/20/16 07/21/16 19:00 07:00 Intake Total 1735 ml 805.0 ml Balance 1735 ml 805.0 ml Intake Oral 1400 ml 360 ml IV Total 335 ml 445.0 ml # Voids 3 4 # Bowel Movements 1 Objective General Appearance: WD/WN, no acute distress HEENT: normocephalic, atraumatic, anicteric, mucous membranes moist, PERRL Respiratory/Chest: chest wall non-tender, lungs clear - with moderate air entry , normal breath sounds, no respiratory distress, no accessory muscle use Cardiovascular: normal peripheral pulses, normal rate, regular rhythm, no JVD Abdomen: normal bowel sounds, soft, non tender, non distended Extremities: no edema, pedal pulses normal 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1H, Platelet Count 368, Mean Platelet Volume 6.5, Neutrophils (%) (Auto) 56.9, Lymphocytes (%) (Auto) 27.4, Monocytes (%) (Auto) 11.3H, Eosinophils (%) (Auto) 3.2H, Basophils (%) (Auto) 1.3, Sodium Level 141, Potassium Level 4.4, Chloride Level 101, Carbon Dioxide Level 25, Anion Gap 15, Blood Urea Nitrogen 11, Creatinine 1.1H, Estimat Glomerular Filtration Rate 53.5, Glucose Level 104, Calcium Level 9.0, Total Bilirubin 0.3, Aspartate Amino Transf (AST/SGOT) 78H, Alanine Aminotransferase (ALT/SGPT) 96H, Alkaline Phosphatase 217H, Total Protein 6.7, Albumin 3.3L, Globulin 3.4, Albumin/Globulin Ratio 0.9L Current Medications Medications (Trade) Dose Ordered Sig/Richar Route PRN Reason Start Time Stop Time Status Last Admin Dose Admin Acetaminophen (Tylenol) 650 mg Q4H PRN ORAL fever 07/12/16 06:00 08/11/16 05:59 Al Hydroxide/Mg Hydroxide (Mylanta II) 30 ml Q6H PRN ORAL dyspepsia 07/12/16 06:00 08/11/16 05:59 Albuterol/ Ipratropium 3 ml 3 ml Q4H PRN HHN Shortness of Breath 07/20/16 16:15 07/25/16 16:14 Clindamycin HCl/ Dextrose (Cleocin 600mg) 50 ml @ 100 mls/hr Q8HR IV 07/21/16 14:00 07/28/16 13:59 Heparin Sodium (Porcine) (Heparin 5000 units/ml) 5,000 units EVERY 12 HOURS SUBQ 07/12/16 09:00 08/11/16 08:59 07/21/16 08:03 Levothyroxine Sodium 100 mcg 100 mcg DAILY@0630 ORAL 07/12/16 06:30 08/11/16 06:29 07/21/16 06:10 Nitroglycerin (Ntg) 0.4 mg Q5M PRN SL Prn Chest Pain 07/12/16 06:00 08/11/16 05:59 Ondansetron HCl (Zofran) 4 mg Q6H PRN IVP Nausea & Vomiting 07/12/16 06:00 08/11/16 05:59 Piperacillin Sod/ Tazobactam Sod 3.375 gm/Dextrose 110 ml @ 27.5 mls/hr Q8H IVPB 07/12/16 18:00 07/25/16 17:59 07/21/16 09:18 Polyethylene Glycol (Miralax) 17 gm DAILYPRN PRN ORAL Constipation 07/12/16 06:00 08/11/16 05:59 Promethazine HCl/ Codeine (Phenergan with Codeine) 5 ml Q4H PRN ORAL For Cough 07/12/16 06:00 08/11/16 05:59 07/20/16 22:14 Sodium Chloride (0.45% NS 1000ml) 1,000 ml @ 75 mls/hr [id number] IV 07/19/16 17:45 08/18/16 17:44 07/21/16 08:06 Bogdan CunninghamBeena bullock NP Jul 21, 2016 12:14
[2016-07-21] MEDS: Clindamycin 600mg 50 ML IV SCH ×2 (13:41→22:12)
[2016-07-21 16:00] VITALS: BP 124/62
[2016-07-21 19:00] VITALS: BP 118/69
--- NOTE | 2016-07-21 19:47 | Infectious Diseases Prog Note ---
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 screening for influenza is negative. will screen for vasculitis as an etiology since her repeated CT chest showed worsening necrotizing lesion , may need bronchoscopy OR lung biopsy from the lesions if work up is negative . echo ruled out vegetations . (2) Sepsis Assessment & Plan: due to pneumonia, continue vancomycin and zosyn empirically for now, await blood culture (3) Diabetes mellitus Assessment & Plan: recommend tight glycemic control to keep blood glucose between 80-120 (4) KARMA (acute kidney injury) Assessment & Plan: continue IVF for hydration, avoid nephrotoxic meds. Subjective Constitutional: Denies: anorexia, chills, drenching sweats, fatigue, fever, no symptoms, other HEENT: Denies: congestion, coryza, dysphagia, hearing change, no symptoms, other, visual change Respiratory: Denies: dry cough, no symptoms, other, productive cough, shortness of breath Breasts: Denies: discharge, no symptoms, other, swelling, tenderness Cardiovascular: Denies: chest pain, dyspnea on exertion, no symptoms, other, palpitations Gastrointestinal/Abdominal: Denies: bloating, blood in stool, constipation, diarrhea, nausea, no symptoms, other, vomiting Genitourinary: Denies: dysuria, frequency, hematuria, last menstrual period, no symptoms, nocturia, other, vaginal bleed/discharge Neurologic: Denies: confusion, headache, no symptoms, numbness, other, weakness Psychiatric: Denies: anxiety, depression, no symptoms, other Skin: Denies: no symptoms, other, rash, ulcer Endocrine: Denies: feels cold, feels warm, no symptoms, other Allergies: Coded Allergies: No Known Allergies (Unverified , 07/12/16) Subjective she was feeling better. Objective Vital Signs Last 24 Hour Vital Signs Date Time Temp Pulse Resp B/P Pulse Ox O2 Delivery O2 Flow Rate FiO2 07/21/16 19:08 98 Nasal Cannula 2.0 2/5/17 19:08 Nasal Cannula 2.0 07/21/16 16:00 97.5 77 20 124/62 93 Room Air 07/21/16 11:59 97.0 83 15 101/66 98 Room Air 07/21/16 08:32 97.0 89 15 97/62 99 Room Air 07/21/16 07:04 Nasal Cannula 2.0 07/21/16 07:04 98 Nasal Cannula 2.0 07/21/16 04:00 98.2 85 20 129/78 97 Room Air 07/21/16 00:00 97.0 87 20 127/75 97 Room Air 07/20/16 20:00 96.3 96 20 121/65 96 Room Air Height (Feet): 4 Height (Inches): 10.00 Weight (Pounds): 105 General Appearance: WD/WN, no acute distress HEENT: normocephalic, atraumatic, anicteric, mucous membranes moist Respiratory/Chest: chest wall non-tender, lungs clear, normal breath sounds, no respiratory distress, no accessory muscle use Cardiovascular: normal peripheral pulses, normal rate, regular rhythm Abdomen: normal bowel sounds, soft, non tender, no organomegaly, non distended , no mass, no scars Extremities: no cyanosis, no clubbing Laboratory Tests Test 07/21/16 05:35 White Blood Count 5.2 K/UL (4.8-10.8) Red Blood Count 3.91 M/UL (4.20-5.40) L Hemoglobin 11.1 G/DL (12.0-16.0) L Hematocrit 34.5 % (37.0-47.0) L Mean Corpuscular Volume 88 FL (80-99) Mean Corpuscular Hemoglobin 28.3 PG (27.0-31.0) Mean Corpuscular Hemoglobin Concent 32.1 G/DL (32.0-36.0) Red Cell Distribution Width 15.1 % (11.6-14.8) H Platelet Count 368 K/UL (150-450) Mean Platelet Volume 6.5 FL (6.5-10.1) Neutrophils (%) (Auto) 56.9 % (45.0-75.0) Lymphocytes (%) (Auto) 27.4 % (20.0-45.0) Monocytes (%) (Auto) 11.3 % (1.0-10.0) H Eosinophils (%) (Auto) 3.2 % (0.0-3.0) H Basophils (%) (Auto) 1.3 % (0.0-2.0) Sodium Level 141 mEQ/L (135-145) Potassium Level 4.4 mEQ/L (3.4-4.9) Chloride Level 101 mEQ/L (98-107) Carbon Dioxide Level 25 mEQ/L (20-30) Anion Gap 15 (5-15) Blood Urea Nitrogen 11 mg/dL (7-23) Creatinine 1.1 mg/dL (0.5-0.9) H Estimat Glomerular Filtration Rate 53.5 mL/min (>60) Glucose Level 104 mg/dL (74-106) Calcium Level 9.0 mg/dL (8.6-10.2) Total Bilirubin 0.3 mg/dL (0.0-1.2) Aspartate Amino Transf (AST/SGOT) 78 U/L (5-40) H Alanine Aminotransferase (ALT/SGPT) 96 U/L (3-33) H Alkaline Phosphatase 217 U/L (35-104) H Total Protein 6.7 g/dL (6.6-8.7) Albumin 3.3 g/dL (3.5-5.2) L Globulin 3.4 g/dL Albumin/Globulin Ratio 0.9 (1.0-2.7) L Current Medications Medications (Trade) Dose Ordered Sig/Richar Route PRN Reason Start Time Stop Time Status Last Admin Dose Admin Acetaminophen (Tylenol) 650 mg Q4H PRN ORAL fever 07/12/16 06:00 08/11/16 05:59 Al Hydroxide/Mg Hydroxide (Mylanta II) 30 ml Q6H PRN ORAL dyspepsia 07/12/16 06:00 08/11/16 05:59 Albuterol/ Ipratropium 3 ml 3 ml Q4H PRN HHN Shortness of Breath 07/20/16 16:15 07/25/16 16:14 Clindamycin HCl/ Dextrose 50 ml @ 100 mls/hr Q8HR IV 07/21/16 14:00 07/28/16 13:59 07/21/16 13:41 Heparin Sodium (Porcine) (Heparin 5000 units/ml) 5,000 units EVERY 12 HOURS SUBQ 07/12/16 09:00 08/11/16 08:59 07/21/16 08:03 Levothyroxine Sodium 100 mcg 100 mcg DAILY@0630 ORAL 07/12/16 06:30 08/11/16 06:29 07/21/16 06:10 Nitroglycerin (Ntg) 0.4 mg Q5M PRN SL Prn Chest Pain 07/12/16 06:00 08/11/16 05:59 Ondansetron HCl (Zofran) 4 mg Q6H PRN IVP Nausea & Vomiting 07/12/16 06:00 08/11/16 05:59 Piperacillin Sod/ Tazobactam Sod/ Dextrose (Zosyn/D5W) 110 ml @ 27.5 mls/hr Q8H IVPB 07/12/16 18:00 07/25/16 17:59 07/21/16 18:02 Polyethylene Glycol (Miralax) 17 gm DAILYPRN PRN ORAL Constipation 07/12/16 06:00 08/11/16 05:59 Promethazine HCl/ Codeine (Phenergan with Codeine) 5 ml Q4H PRN ORAL For Cough 07/12/16 06:00 08/11/16 05:59 07/20/16 22:14 Sodium Chloride (0.45% NS 1000ml) 1,000 ml @ 50 mls/hr Q20H IV 07/21/16 13:00 08/20/16 12:59 [place] M.D. Jul 21, 2016 19:47
[2016-07-21] MEDS: Promethazine/Codeine 5ml UD ORAL PRN (21:30)
[2016-07-22] VITALS (7 sets, daily range): BP systolic 93–119; BP diastolic 57–75
[2016-07-22] MEDS: Piperacillin/Tazobactam 3.375 GM in D5W 110 ML IVPB SCH ×3 (02:14→18:31)
[2016-07-22] MEDS: Clindamycin 600mg 50 ML IV SCH ×3 (06:11→22:37)
[2016-07-22 07:27] LABS: BASOPHILS % (AUTO) 1.3 % (0.0-2.0); EOSINOPHILS % (AUTO) 2.6 % (0.0-3.0); LYMPHOCYTES % (AUTO) 31.3 % (20.0-45.0); MEAN CORPUSCULAR HEMOGLOBIN 28.9 PG (27.0-31.0); MEAN CORPUSCULAR HGB CONC 32.9 G/DL (32.0-36.0); MEAN CORPUSCULAR VOLUME 88 FL (80-99); MEAN PLATELET VOLUME 6.4 FL (6.5-10.1); NEUTROPHILS % (AUTO) 55.7 % (45.0-75.0); PLATELET COUNT 317 K/UL (150-450); RED BLOOD COUNT 3.63 M/UL (4.20-5.40); WHITE BLOOD COUNT 6.6 K/UL (4.8-10.8)
[2016-07-22 07:32] LABS: CREATININE 1.1 mg/dL (0.5-0.9); GLOMERULAR FILTRATION RATE 53.5 mL/min (>60); POTASSIUM 4.7 mEQ/L (3.4-4.9)
[2016-07-22] MEDS: Heparin 5000 units/ml inj SUBQ SCH ×2 (08:41→21:02)
[2016-07-22 08:47] LABS: RHEUMATOID FACTOR SCREEN 12.6 IU/mL (0.0-13.9)
[2016-07-22 08:47] LABS: MTB DETECTION NAA Negative (Negative)
[2016-07-22 08:55] LABS: NIL (NEG) CONTROL SPOT COUNT 0 (0-9); PANEL A SPOT COUNT 0; T SPOT TB NEGATIVE
[2016-07-22 08:56] LABS: PANEL B SPOT COUNT 1; POSITIVE CONTROL SPOT COUNT > 20
[2016-07-22] MEDS ORDERED: Amphotericin B Liposome 50mg inj IV SCH (14:00)
[2016-07-22] MEDS: AMPHOTERICIN B LIPOSOME IV SCH (15:42)
[2016-07-22] MEDS: D5W IV SCH (15:42)
--- NOTE | 2016-07-22 15:49 | General Progress Note ---
Assessment/Plan Problem List: (1) Nosocomial pneumonia ICD Codes: J18.9 - Pneumonia, unspecified organism SNOMED: 658111225 (2) Sepsis ICD Codes: A41.9 - Sepsis, unspecified organism SNOMED: 28977244 (3) CAP (community acquired pneumonia) ICD Codes: J18.9 - Pneumonia, unspecified organism SNOMED: 076081710 (4) Diabetes mellitus ICD Codes: E11.9 - Type 2 diabetes mellitus without complications SNOMED: 05871518 Status: stable, progressing, tolerating diet Assessment/Plan ot pt diet abx cbc bmp am dc plan Subjective Constitutional: Reports: weakness Allergies: Coded Allergies: No Known Allergies (Unverified , 07/12/16) All Systems: reviewed and negative except above Subjective 02nc sl sob Objective Last 24 Hour Vital Signs Date Time Temp Pulse Resp B/P Pulse Ox O2 Delivery O2 Flow Rate FiO2 07/22/16 12:00 96.6 83 18 103/66 100 Room Air 07/22/16 08:12 97.0 80 16 93/60 99 Room Air 07/22/16 06:55 Nasal Cannula 2.0 28 07/22/16 06:55 98 Nasal Cannula 2.0 28 07/22/16 04:00 97.2 69 18 94/57 98 Room Air 07/22/16 00:00 97.2 63 18 94/63 100 Room Air 07/21/16 19:08 98 Nasal Cannula 2.0 07/21/16 19:08 Nasal Cannula 2.0 07/21/16 19:00 97.3 92 20 118/69 97 Room Air 07/21/16 16:00 97.5 77 20 124/62 93 Room Air Intake and Output 07/21/16 07/22/16 19:00 07:00 Intake Total 1395.0 ml 1537.5 ml Balance 1395.0 ml 1537.5 ml Intake Oral 1000 ml 1350 ml IV Total 395.0 ml 187.5 ml # Voids 3 8 # Bowel Movements 1 Laboratory Tests 07/22/16 05:25: White Blood Count 6.6, Red Blood Count 3.63L, Hemoglobin 10.5L, Hematocrit 31.9L , Mean Corpuscular Volume 88, Mean Corpuscular Hemoglobin 28.9, Mean Corpuscular Hemoglobin Concent 32.9, Red Cell Distribution Width 15.0H, Platelet Count 317, Mean Platelet Volume 6.4L, Neutrophils (%) (Auto) 55.7, Lymphocytes (%) (Auto) 31.3, Monocytes (%) (Auto) 9.0, Eosinophils (%) (Auto) 2.6, Basophils (%) (Auto) 1.3, Sodium Level 142, Potassium Level 4.7, Chloride Level 102, Carbon Dioxide Level 24, Anion Gap 16H, Blood Urea Nitrogen 13, Creatinine 1.1H, Estimat Glomerular Filtration Rate 53.5, Glucose Level 104, Calcium Level 9.0, Hepatitis A IgM Antibody [Pending], Hepatitis B Surface Antigen [Pending], Hepatitis B Core IgM Antibody [Pending], Hepatitis C Antibody [Pending] Height (Feet): 4 Height (Inches): 10.00 Weight (Pounds): 105 General Appearance: lethargic EENT: normal ENT inspection Neck: normal alignment Cardiovascular: normal peripheral pulses, normal rate, regular rhythm Respiratory/Chest: chest wall non-tender, lungs clear, normal breath sounds Abdomen: normal bowel sounds, non tender, soft Extremities: normal inspection Edema: no edema noted Arm (L), no edema noted Arm (R), no edema noted Leg (L), no edema noted Leg (R), no edema noted Pedal (L), no edema noted Pedal (R), no edema noted Generalized Neurologic: responsive, motor weakness Skin: normal pigmentation, warm/dry NITIN WAGONER Jul 22, 2016 15:49
[2016-07-22] MEDS ORDERED: Tubing IV Secondary IV ONE (15:59)
[2016-07-22] MEDS ORDERED: 1/2 NS 1000ml IV ONE (15:59)
--- NOTE | 2016-07-22 16:04 | Pulmonology Progress Note ---
Assessment/Plan Problems: (1) CAP (community acquired pneumonia) (2) Sepsis (3) Cavitary lesion of lung Assessment/Plan cxr much better isolation sputum for afb TB gold, > [address] reviewed histo titer positive 1:8 Subjective ROS Limited/Unobtainable: No Constitutional: Reports: no symptoms HEENT: Repors: no symptoms Respiratory: Reports: no symptoms Allergies: Coded Allergies: No Known Allergies (Unverified , 07/12/16) Objective Last 24 Hour Vital Signs Date Time Temp Pulse Resp B/P Pulse Ox O2 Delivery O2 Flow Rate FiO2 07/22/16 12:00 96.6 83 18 103/66 100 Room Air 07/22/16 08:12 97.0 80 16 93/60 99 Room Air 07/22/16 06:55 Nasal Cannula 2.0 28 07/22/16 06:55 98 Nasal Cannula 2.0 28 07/22/16 04:00 97.2 69 18 94/57 98 Room Air 07/22/16 00:00 97.2 63 18 94/63 100 Room Air 07/21/16 19:08 98 Nasal Cannula 2.0 07/21/16 19:08 Nasal Cannula 2.0 07/21/16 19:00 97.3 92 20 118/69 97 Room Air Intake and Output 07/21/16 07/22/16 19:00 07:00 Intake Total 1395.0 ml 1537.5 ml Balance 1395.0 ml 1537.5 ml Intake Oral 1000 ml 1350 ml IV Total 395.0 ml 187.5 ml # Voids 3 8 # Bowel Movements 1 General Appearance: WD/WN, no acute distress HEENT: normocephalic, atraumatic Respiratory/Chest: chest wall non-tender, lungs clear Cardiovascular: normal peripheral pulses, normal rate Abdomen: normal bowel sounds, soft, non tender Genitourinary: normal external genitalia Extremities: no cyanosis Skin: no rash 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, no motor/sensory deficits Microbiology Date/Time Source Procedure Growth Status 07/20/16 10:30 Sputum AFB Specimen Processing Tissue - Final Resulted 07/20/16 10:30 Sputum Acid Fast Bacilli Smear - Final Resulted 07/20/16 10:30 Sputum Acid Fast Bacilli Culture Pending Resulted Laboratory Tests 07/22/16 05:25: White Blood Count 6.6, Red Blood Count 3.63L, Hemoglobin 10.5L, Hematocrit 31.9L , Mean Corpuscular Volume 88, Mean Corpuscular Hemoglobin 28.9, Mean Corpuscular Hemoglobin Concent 32.9, Red Cell Distribution Width 15.0H, Platelet Count 317, Mean Platelet Volume 6.4L, Neutrophils (%) (Auto) 55.7, Lymphocytes (%) (Auto) 31.3, Monocytes (%) (Auto) 9.0, Eosinophils (%) (Auto) 2.6, Basophils (%) (Auto) 1.3, Sodium Level 142, Potassium Level 4.7, Chloride Level 102, Carbon Dioxide Level 24, Anion Gap 16H, Blood Urea Nitrogen 13, Creatinine 1.1H, Estimat Glomerular Filtration Rate 53.5, Glucose Level 104, Calcium Level 9.0, Hepatitis A IgM Antibody [Pending], Hepatitis B Surface Antigen [Pending], Hepatitis B Core IgM Antibody [Pending], Hepatitis C Antibody [Pending] Current Medications Medications (Trade) Dose Ordered Sig/Richar Route PRN Reason Start Time Stop Time Status Last Admin Dose Admin Acetaminophen (Tylenol) 650 mg Q4H PRN ORAL fever 07/12/16 06:00 08/11/16 05:59 Al Hydroxide/Mg Hydroxide (Mylanta II) 30 ml Q6H PRN ORAL dyspepsia 07/12/16 06:00 08/11/16 05:59 Albuterol/ Ipratropium 3 ml 3 ml Q4H PRN HHN Shortness of Breath 07/20/16 16:15 07/25/16 16:14 Amphotericin B Liposome/Dextrose (Ambisome/D5W) 110 ml @ 55 mls/hr Q24H IV 07/22/16 16:00 07/27/16 15:59 07/22/16 15:42 Clindamycin HCl/ Dextrose 50 ml @ 100 mls/hr Q8HR IV 07/21/16 14:00 07/28/16 13:59 07/22/16 14:04 Heparin Sodium (Porcine) (Heparin 5000 units/ml) 5,000 units EVERY 12 HOURS SUBQ 07/12/16 09:00 08/11/16 08:59 07/22/16 08:41 Levothyroxine Sodium 100 mcg 100 mcg DAILY@0630 ORAL 07/12/16 06:30 08/11/16 06:29 07/22/16 06:11 Nitroglycerin (Ntg) 0.4 mg Q5M PRN SL Prn Chest Pain 07/12/16 06:00 08/11/16 05:59 Ondansetron HCl (Zofran) 4 mg Q6H PRN IVP Nausea & Vomiting 07/12/16 06:00 08/11/16 05:59 Piperacillin Sod/ Tazobactam Sod/ Dextrose (Zosyn/D5W) 110 ml @ 27.5 mls/hr Q8H IVPB 07/12/16 18:00 07/25/16 17:59 07/22/16 09:58 Polyethylene Glycol (Miralax) 17 gm DAILYPRN PRN ORAL Constipation 07/12/16 06:00 08/11/16 05:59 Promethazine HCl/ Codeine (Phenergan with Codeine) 5 ml Q4H PRN ORAL For Cough 07/12/16 06:00 08/11/16 05:59 07/21/16 21:30 Sodium Chloride 1,000 ml @ 50 mls/hr Q20H IV 07/21/16 13:00 08/20/16 12:59 07/22/16 08:41 KATHIA CATES Jul 22, 2016 16:04
--- NOTE | 2016-07-22 17:50 | Infectious Diseases Prog Note ---
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 screening for influenza is negative. will screen for vasculitis as an etiology since her repeated CT chest showed worsening necrotizing lesion , may need bronchoscopy OR lung biopsy from the lesions if work up is negative . echo ruled out vegetations . (2) Sepsis Assessment & Plan: due to pneumonia, continue vancomycin and zosyn empirically for now, await blood culture (3) Diabetes mellitus Assessment & Plan: recommend tight glycemic control to keep blood glucose between 80-120 (4) KARMA (acute kidney injury) Assessment & Plan: continue IVF for hydration, avoid nephrotoxic meds. Subjective Constitutional: Denies: anorexia, chills, drenching sweats, fatigue, fever, no symptoms, other HEENT: Denies: congestion, coryza, dysphagia, hearing change, no symptoms, other, visual change Respiratory: Denies: dry cough, no symptoms, other, productive cough, shortness of breath Breasts: Denies: discharge, no symptoms, other, swelling, tenderness Cardiovascular: Denies: chest pain, dyspnea on exertion, no symptoms, other, palpitations Gastrointestinal/Abdominal: Denies: bloating, blood in stool, constipation, diarrhea, nausea, no symptoms, other, vomiting Genitourinary: Denies: dysuria, frequency, hematuria, last menstrual period, no symptoms, nocturia, other, vaginal bleed/discharge Neurologic: Denies: confusion, headache, no symptoms, numbness, other, weakness Psychiatric: Denies: anxiety, depression, no symptoms, other Skin: Denies: no symptoms, other, rash, ulcer Endocrine: Denies: feels cold, feels warm, no symptoms, other Hematologic: Denies: bleeding, no symptoms, other, swollen lymph nodes Musculoskeletal: Denies: no symptoms, other, pain, stiffness, swelling Allergies: Coded Allergies: No Known Allergies (Unverified , 07/12/16) Subjective she was doing well, denied any cough or SOB. Objective Vital Signs Last 24 Hour Vital Signs Date Time Temp Pulse Resp B/P Pulse Ox O2 Delivery O2 Flow Rate FiO2 07/22/16 16:00 97.3 87 20 108/68 99 Room Air 07/22/16 12:00 96.6 83 18 103/66 100 Room Air 07/22/16 08:12 97.0 80 16 93/60 99 Room Air 07/22/16 06:55 Nasal Cannula 2.0 28 07/22/16 06:55 98 Nasal Cannula 2.0 28 07/22/16 04:00 97.2 69 18 94/57 98 Room Air 07/22/16 00:00 97.2 63 18 94/63 100 Room Air 07/21/16 19:08 98 Nasal Cannula 2.0 07/21/16 19:08 Nasal Cannula 2.0 07/21/16 19:00 97.3 92 20 118/69 97 Room Air Height (Feet): 4 Height (Inches): 10.00 Weight (Pounds): 105 General Appearance: WD/WN, no acute distress HEENT: normocephalic, atraumatic, anicteric, mucous membranes moist, PERRL Respiratory/Chest: chest wall non-tender, normal breath sounds, no respiratory distress, no accessory muscle use Cardiovascular: normal peripheral pulses, normal rate, regular rhythm, no gallop/murmur, no JVD Abdomen: normal bowel sounds, soft, non tender, no organomegaly, non distended , no mass, no scars Extremities: no cyanosis, no clubbing Skin: no rash, no lesions, no ulcers Microbiology Date/Time Source Procedure Growth Status 07/20/16 10:30 Sputum AFB Specimen Processing Tissue - Final Resulted 07/20/16 10:30 Sputum Acid Fast Bacilli Smear - Final Resulted 07/20/16 10:30 Sputum Acid Fast Bacilli Culture Pending Resulted Laboratory Tests Test 07/22/16 05:25 White Blood Count 6.6 K/UL (4.8-10.8) Red Blood Count 3.63 M/UL (4.20-5.40) L Hemoglobin 10.5 G/DL (12.0-16.0) L Hematocrit 31.9 % (37.0-47.0) L Mean Corpuscular Volume 88 FL (80-99) Mean Corpuscular Hemoglobin 28.9 PG (27.0-31.0) Mean Corpuscular Hemoglobin Concent 32.9 G/DL (32.0-36.0) Red Cell Distribution Width 15.0 % (11.6-14.8) H Platelet Count 317 K/UL (150-450) Mean Platelet Volume 6.4 FL (6.5-10.1) L Neutrophils (%) (Auto) 55.7 % (45.0-75.0) Lymphocytes (%) (Auto) 31.3 % (20.0-45.0) Monocytes (%) (Auto) 9.0 % (1.0-10.0) Eosinophils (%) (Auto) 2.6 % (0.0-3.0) Basophils (%) (Auto) 1.3 % (0.0-2.0) Sodium Level 142 mEQ/L (135-145) Potassium Level 4.7 mEQ/L (3.4-4.9) Chloride Level 102 mEQ/L (98-107) Carbon Dioxide Level 24 mEQ/L (20-30) Anion Gap 16 (5-15) H Blood Urea Nitrogen 13 mg/dL (7-23) Creatinine 1.1 mg/dL (0.5-0.9) H Estimat Glomerular Filtration Rate 53.5 mL/min (>60) Glucose Level 104 mg/dL (74-106) Calcium Level 9.0 mg/dL (8.6-10.2) Hepatitis A IgM Antibody Pending Hepatitis B Surface Antigen Pending Hepatitis B Core IgM Antibody Pending Hepatitis C Antibody Pending Current Medications Medications (Trade) Dose Ordered Sig/Richar Route PRN Reason Start Time Stop Time Status Last Admin Dose Admin Acetaminophen (Tylenol) 650 mg Q4H PRN ORAL fever 07/12/16 06:00 08/11/16 05:59 Al Hydroxide/Mg Hydroxide (Mylanta II) 30 ml Q6H PRN ORAL dyspepsia 07/12/16 06:00 08/11/16 05:59 Albuterol/ Ipratropium 3 ml 3 ml Q4H PRN HHN Shortness of Breath 07/20/16 16:15 07/25/16 16:14 Amphotericin B Liposome/Dextrose (Ambisome/D5W) 110 ml @ 55 mls/hr Q24H IV 07/22/16 16:00 07/27/16 15:59 07/22/16 15:42 Clindamycin HCl/ Dextrose 50 ml @ 100 mls/hr Q8HR IV 07/21/16 14:00 07/28/16 13:59 07/22/16 14:04 Heparin Sodium (Porcine) (Heparin 5000 units/ml) 5,000 units EVERY 12 HOURS SUBQ 07/12/16 09:00 08/11/16 08:59 07/22/16 08:41 Levothyroxine Sodium 100 mcg 100 mcg DAILY@0630 ORAL 07/12/16 06:30 08/11/16 06:29 07/22/16 06:11 Nitroglycerin (Ntg) 0.4 mg Q5M PRN SL Prn Chest Pain 07/12/16 06:00 08/11/16 05:59 Ondansetron HCl (Zofran) 4 mg Q6H PRN IVP Nausea & Vomiting 07/12/16 06:00 08/11/16 05:59 Piperacillin Sod/ Tazobactam Sod/ Dextrose (Zosyn/D5W) 110 ml @ 27.5 mls/hr Q8H IVPB 07/12/16 18:00 07/25/16 17:59 07/22/16 09:58 Polyethylene Glycol (Miralax) 17 gm DAILYPRN PRN ORAL Constipation 07/12/16 06:00 08/11/16 05:59 Promethazine HCl/ Codeine (Phenergan with Codeine) 5 ml Q4H PRN ORAL For Cough 07/12/16 06:00 08/11/16 05:59 07/21/16 21:30 Sodium Chloride 1,000 ml @ 50 mls/hr Q20H IV 07/21/16 13:00 08/20/16 12:59 07/22/16 08:41 Italo Nation M.D. Jul 22, 2016 17:50
[2016-07-22] MEDS: Promethazine/Codeine 5ml UD ORAL PRN (21:02)
[2016-07-23] VITALS: BP 102/47
[2016-07-23] MEDS: Piperacillin/Tazobactam 3.375 GM in D5W 110 ML IVPB SCH ×3 (01:03→18:51)
[2016-07-23 04:00] VITALS: BP 93/56
[2016-07-23] MEDS: Clindamycin 600mg 50 ML IV SCH ×3 (05:34→22:58)
[2016-07-23 07:06] LABS: BASOPHILS % (AUTO) 1.9 % (0.0-2.0); EOSINOPHILS % (AUTO) 1.8 % (0.0-3.0); LYMPHOCYTES % (AUTO) 17.6 % (20.0-45.0); MEAN CORPUSCULAR HEMOGLOBIN 28.5 PG (27.0-31.0); MEAN CORPUSCULAR HGB CONC 32.6 G/DL (32.0-36.0); MEAN CORPUSCULAR VOLUME 87 FL (80-99); MEAN PLATELET VOLUME 7.5 FL (6.5-10.1); MONOCYTES % (AUTO) 2.4 % (1.0-10.0); NEUTROPHILS % (AUTO) 76.3 % (45.0-75.0); PLATELET COUNT 192 K/UL (150-450); RED BLOOD COUNT 3.88 M/UL (4.20-5.40); RED CELL DISTRIBUTION WIDTH 14.8 % (11.6-14.8); WHITE BLOOD COUNT 5.4 K/UL (4.8-10.8)
[2016-07-23 07:22] LABS: CALCIUM 8.9 mg/dL (8.6-10.2); CREATININE 1.1 mg/dL (0.5-0.9); GLOMERULAR FILTRATION RATE 53.3 mL/min (>60)
[2016-07-23 08:32] VITALS: BP 91/65
--- NOTE | 2016-07-23 09:09 | Diagnostic Imaging Report ---
Indication: SOB Technique: One view of the chest Comparison: Due to 2017 Findings: Inspiration is suboptimal. There is still some patchy opacity in the left infrahilar region and left lateral lung base, but this appears slightly improved. The pleural spaces, right lung are clear. Impression: Improving but persistent left perihilar and lateral basilar patchy infiltrate, over 4 days. Please refer to chest CT of 07/18/16 seventh for more thorough analysis extent of the patient's lung disease
[2016-07-23] MEDS: Heparin 5000 units/ml inj SUBQ SCH ×2 (10:15→21:00)
[2016-07-23 11:45] VITALS: BP 96/63
--- NOTE | 2016-07-23 13:03 | General Progress Note ---
Assessment/Plan Problem List: (1) Nosocomial pneumonia ICD Codes: J18.9 - Pneumonia, unspecified organism SNOMED: 109050588 (2) Sepsis ICD Codes: A41.9 - Sepsis, unspecified organism SNOMED: 11494398 (3) CAP (community acquired pneumonia) ICD Codes: J18.9 - Pneumonia, unspecified organism SNOMED: 479516333 (4) Diabetes mellitus ICD Codes: E11.9 - Type 2 diabetes mellitus without complications SNOMED: 58362898 Status: stable, progressing, tolerating diet Assessment/Plan ot pt diet abx dc plan Subjective Constitutional: Reports: weakness Respiratory: Reports: shortness of breath Allergies: Coded Allergies: No Known Allergies (Unverified , 07/12/16) All Systems: reviewed and negative except above Subjective 02nc sl sob Objective Last 24 Hour Vital Signs Date Time Temp Pulse Resp B/P Pulse Ox O2 Delivery O2 Flow Rate FiO2 07/23/16 11:45 97.0 83 15 96/63 98 Room Air 07/23/16 08:32 97.9 108 20 91/65 96 Room Air 07/23/16 07:40 99 Nasal Cannula 2.0 28 07/23/16 07:40 Nasal Cannula 2.0 28 07/23/16 04:00 97.7 83 18 93/56 83 Room Air 07/23/16 02:00 99.1 07/23/16 00:00 100.6 91 18 102/47 97 Room Air 07/22/16 22:00 97.9 72 20 119/75 100 Room Air 07/22/16 20:00 97.9 72 20 119/75 100 Room Air 07/22/16 19:00 98 Nasal Cannula 2.0 28 07/22/16 19:00 Nasal Cannula 2.0 28 07/22/16 16:00 97.3 87 20 108/68 99 Room Air Intake and Output 07/22/16 07/23/16 19:00 07:00 Intake Total 752.5 ml 702.5 ml Balance 752.5 ml 702.5 ml Intake Oral 360 ml 360 ml IV Total 392.5 ml 342.5 ml # Voids 3 Laboratory Tests 07/23/16 04:45: White Blood Count 5.4, Red Blood Count 3.88L, Hemoglobin 11.1L, Hematocrit 33.9L , Mean Corpuscular Volume 87, Mean Corpuscular Hemoglobin 28.5, Mean Corpuscular Hemoglobin Concent 32.6, Red Cell Distribution Width 14.8, Platelet Count 192, Mean Platelet Volume 7.5, Neutrophils (%) (Auto) 76.3H, Lymphocytes ( %) (Auto) 17.6L, Monocytes (%) (Auto) 2.4, Eosinophils (%) (Auto) 1.8, Basophils (%) (Auto) 1.9, Sodium Level 139, Potassium Level 4.0, Chloride Level 101, Carbon Dioxide Level 23, Anion Gap 15, Blood Urea Nitrogen 17, Creatinine 1.1H, Estimat Glomerular Filtration Rate 53.3, Glucose Level 106, Calcium Level 8.9 Height (Feet): 4 Height (Inches): 10.00 Weight (Pounds): 105 General Appearance: lethargic EENT: normal ENT inspection Neck: normal alignment Cardiovascular: normal peripheral pulses, normal rate, regular rhythm Respiratory/Chest: chest wall non-tender, lungs clear, normal breath sounds Abdomen: normal bowel sounds, non tender, soft Extremities: normal inspection Edema: no edema noted Arm (L), no edema noted Arm (R), no edema noted Leg (L), no edema noted Leg (R), no edema noted Pedal (L), no edema noted Pedal (R), no edema noted Generalized Neurologic: responsive, motor weakness Skin: normal pigmentation, warm/dry NITIN WAGONER Jul 23, 2016 13:03
[2016-07-23 15:56] VITALS: BP 98/62
[2016-07-23] MEDS: AMPHOTERICIN B LIPOSOME IV SCH (16:19)
[2016-07-23] MEDS: D5W IV SCH (16:19)
--- NOTE | 2016-07-23 17:11 | Infectious Diseases Prog Note ---
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 screening for influenza is negative. will screen for vasculitis as an etiology since her repeated CT chest showed worsening necrotizing lesion , may need bronchoscopy OR lung biopsy from the lesions if work up is negative . echo ruled out vegetations . (2) Sepsis Assessment & Plan: due to pneumonia, continue vancomycin and zosyn empirically for now, await blood culture (3) Diabetes mellitus Assessment & Plan: recommend tight glycemic control to keep blood glucose between 80-120 (4) KARMA (acute kidney injury) Assessment & Plan: stable, continue IVF for hydration, avoid nephrotoxic meds. Subjective Constitutional: Denies: anorexia, chills, drenching sweats, fatigue, fever, no symptoms, other HEENT: Denies: congestion, coryza, dysphagia, hearing change, no symptoms, other, visual change Respiratory: Reports: dry cough Breasts: Denies: discharge, no symptoms, other, swelling, tenderness Cardiovascular: Denies: chest pain, dyspnea on exertion, no symptoms, other, palpitations Gastrointestinal/Abdominal: Denies: bloating, blood in stool, constipation, diarrhea, nausea, no symptoms, other, vomiting Genitourinary: Denies: dysuria, frequency, hematuria, last menstrual period, no symptoms, nocturia, other, vaginal bleed/discharge Neurologic: Denies: confusion, headache, no symptoms, numbness, other, weakness Psychiatric: Denies: anxiety, depression, no symptoms, other Skin: Denies: no symptoms, other, rash, ulcer Allergies: Coded Allergies: No Known Allergies (Unverified , 07/12/16) Subjective she was feeling better, denied any fever or chills, had dry cough only. Objective Vital Signs Last 24 Hour Vital Signs Date Time Temp Pulse Resp B/P Pulse Ox O2 Delivery O2 Flow Rate FiO2 07/23/16 15:56 97.2 79 20 98/62 97 Room Air 07/23/16 11:45 97.0 83 15 96/63 98 Room Air 07/23/16 08:32 97.9 108 20 91/65 96 Room Air 07/23/16 07:40 99 Nasal Cannula 2.0 28 07/23/16 07:40 Nasal Cannula 2.0 28 07/23/16 04:00 97.7 83 18 93/56 83 Room Air 07/23/16 02:00 99.1 07/23/16 00:00 100.6 91 18 102/47 97 Room Air 07/22/16 22:00 97.9 72 20 119/75 100 Room Air 07/22/16 20:00 97.9 72 20 119/75 100 Room Air 07/22/16 19:00 98 Nasal Cannula 2.0 28 07/22/16 19:00 Nasal Cannula 2.0 28 Height (Feet): 4 Height (Inches): 10.00 Weight (Pounds): 105 General Appearance: WD/WN, no acute distress HEENT: normocephalic, atraumatic, anicteric, mucous membranes moist Respiratory/Chest: chest wall non-tender, lungs clear, normal breath sounds, no respiratory distress, no accessory muscle use Cardiovascular: normal peripheral pulses, normal rate, regular rhythm, no gallop/murmur, no JVD Abdomen: normal bowel sounds, soft, non tender, no organomegaly, non distended , no mass, no scars Extremities: no cyanosis, no clubbing Skin: no rash, no lesions, no ulcers Laboratory Tests Test 07/23/16 04:45 White Blood Count 5.4 K/UL (4.8-10.8) Red Blood Count 3.88 M/UL (4.20-5.40) L Hemoglobin 11.1 G/DL (12.0-16.0) L Hematocrit 33.9 % (37.0-47.0) L Mean Corpuscular Volume 87 FL (80-99) Mean Corpuscular Hemoglobin 28.5 PG (27.0-31.0) Mean Corpuscular Hemoglobin Concent 32.6 G/DL (32.0-36.0) Red Cell Distribution Width 14.8 % (11.6-14.8) Platelet Count 192 K/UL (150-450) Mean Platelet Volume 7.5 FL (6.5-10.1) Neutrophils (%) (Auto) 76.3 % (45.0-75.0) H Lymphocytes (%) (Auto) 17.6 % (20.0-45.0) L Monocytes (%) (Auto) 2.4 % (1.0-10.0) Eosinophils (%) (Auto) 1.8 % (0.0-3.0) Basophils (%) (Auto) 1.9 % (0.0-2.0) Sodium Level 139 mEQ/L (135-145) Potassium Level 4.0 mEQ/L (3.4-4.9) Chloride Level 101 mEQ/L (98-107) Carbon Dioxide Level 23 mEQ/L (20-30) Anion Gap 15 (5-15) Blood Urea Nitrogen 17 mg/dL (7-23) Creatinine 1.1 mg/dL (0.5-0.9) H Estimat Glomerular Filtration Rate 53.3 mL/min (>60) Glucose Level 106 mg/dL (74-106) Calcium Level 8.9 mg/dL (8.6-10.2) Current Medications Medications (Trade) Dose Ordered Sig/Richar Route PRN Reason Start Time Stop Time Status Last Admin Dose Admin Acetaminophen (Tylenol) 650 mg Q4H PRN ORAL fever 07/12/16 06:00 08/11/16 05:59 07/23/16 01:01 Al Hydroxide/Mg Hydroxide (Mylanta II) 30 ml Q6H PRN ORAL dyspepsia 07/12/16 06:00 08/11/16 05:59 Albuterol/ Ipratropium 3 ml 3 ml Q4H PRN HHN Shortness of Breath 07/20/16 16:15 07/25/16 16:14 Amphotericin B Liposome/Dextrose (Ambisome/D5W) 110 ml @ 55 mls/hr Q24H IV 07/22/16 16:00 07/27/16 15:59 07/23/16 16:19 Clindamycin HCl/ Dextrose 50 ml @ 100 mls/hr Q8HR IV 07/21/16 14:00 07/28/16 13:59 07/23/16 14:43 Heparin Sodium (Porcine) (Heparin 5000 units/ml) 5,000 units EVERY 12 HOURS SUBQ 07/12/16 09:00 08/11/16 08:59 07/23/16 10:15 Levothyroxine Sodium 100 mcg 100 mcg DAILY@0630 ORAL 07/12/16 06:30 08/11/16 06:29 07/23/16 05:33 Nitroglycerin (Ntg) 0.4 mg Q5M PRN SL Prn Chest Pain 07/12/16 06:00 08/11/16 05:59 Ondansetron HCl (Zofran) 4 mg Q6H PRN IVP Nausea & Vomiting 07/12/16 06:00 08/11/16 05:59 Piperacillin Sod/ Tazobactam Sod/ Dextrose (Zosyn/D5W) 110 ml @ 27.5 mls/hr Q8H IVPB 07/12/16 18:00 07/25/16 17:59 07/23/16 10:12 Polyethylene Glycol (Miralax) 17 gm DAILYPRN PRN ORAL Constipation 07/12/16 06:00 08/11/16 05:59 Promethazine HCl/ Codeine (Phenergan with Codeine) 5 ml Q4H PRN ORAL For Cough 07/12/16 06:00 08/11/16 05:59 07/22/16 21:02 Sodium Chloride 1,000 ml @ 50 mls/hr Q20H IV 07/21/16 13:00 08/20/16 12:59 07/22/16 08:41 Italo Nation M.D. Jul 23, 2016 17:11
[2016-07-23 18:02] LABS: BILIRUBIN,DIRECT 0.1 mg/dL (0.1-0.3); TOTAL PROTEIN 6.5 g/dL (6.6-8.7)
[2016-07-23 20:00] VITALS: BP 109/75
[2016-07-24] VITALS: BP 91/53
[2016-07-24] MEDS: Piperacillin/Tazobactam 3.375 GM in D5W 110 ML IVPB SCH ×3 (02:00→19:37)
[2016-07-24 04:00] VITALS: BP 94/59
[2016-07-24] MEDS: Clindamycin 600mg 50 ML IV SCH ×2 (06:06→14:31)
[2016-07-24] MEDS: Heparin 5000 units/ml inj SUBQ SCH ×2 (08:38→21:00)
[2016-07-24 11:48] VITALS: BP 99/45
--- NOTE | 2016-07-24 14:07 | General Progress Note ---
Assessment/Plan Problem List: (1) Nosocomial pneumonia ICD Codes: J18.9 - Pneumonia, unspecified organism SNOMED: 277115757 (2) Sepsis ICD Codes: A41.9 - Sepsis, unspecified organism SNOMED: 04322546 (3) CAP (community acquired pneumonia) ICD Codes: J18.9 - Pneumonia, unspecified organism SNOMED: 120567752 (4) Diabetes mellitus ICD Codes: E11.9 - Type 2 diabetes mellitus without complications SNOMED: 61763743 Status: stable, progressing Assessment/Plan ot pt diet abx cbc bmp am dc plan Subjective Constitutional: Reports: weakness Allergies: Coded Allergies: No Known Allergies (Unverified , 07/12/16) All Systems: reviewed and negative except above Subjective 02nc sl sob Objective Last 24 Hour Vital Signs Date Time Temp Pulse Resp B/P Pulse Ox O2 Delivery O2 Flow Rate FiO2 07/24/16 11:48 97.7 77 19 99/45 97 Room Air 07/24/16 07:24 Room Air 07/24/16 07:24 100 Room Air 07/24/16 04:00 97.3 74 18 94/59 94 Room Air 07/24/16 00:00 97.5 80 18 91/53 96 Room Air 07/23/16 20:00 98.5 82 20 109/75 97 Room Air 07/23/16 19:00 97 Nasal Cannula 2.0 28 07/23/16 19:00 Nasal Cannula 2.0 28 07/23/16 15:56 97.2 79 20 98/62 97 Room Air Intake and Output 07/23/16 07/24/16 19:00 07:00 Intake Total 1160.0 ml 620.0 ml Balance 1160.0 ml 620.0 ml Intake Oral 900 ml 360 ml IV Total 260.0 ml 260.0 ml # Voids 2 4 Height (Feet): 4 Height (Inches): 10.00 Weight (Pounds): 105 General Appearance: lethargic EENT: normal ENT inspection Neck: normal alignment Cardiovascular: normal peripheral pulses, normal rate, regular rhythm Respiratory/Chest: chest wall non-tender, lungs clear, normal breath sounds Abdomen: normal bowel sounds, non tender, soft Extremities: normal inspection Edema: no edema noted Arm (L), no edema noted Arm (R), no edema noted Leg (L), no edema noted Leg (R), no edema noted Pedal (L), no edema noted Pedal (R), no edema noted Generalized Neurologic: motor weakness Skin: normal pigmentation, warm/dry NITIN WAGONER Jul 24, 2016 14:07
[2016-07-24 16:00] VITALS: BP 100/71
[2016-07-24] MEDS: AMPHOTERICIN B LIPOSOME IV SCH (16:34)
[2016-07-24] MEDS: D5W IV SCH (16:34)
--- NOTE | 2016-07-24 17:53 | Infectious Diseases Prog Note ---
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 screening for influenza is negative. screening for vasculitis is negative , may need bronchoscopy OR lung biopsy from the lesions if work up is negative . echo ruled out vegetations . (2) Diabetes mellitus Assessment & Plan: recommend tight glycemic control to keep blood glucose between 80-120 (3) KARMA (acute kidney injury) Assessment & Plan: stable, continue IVF for hydration, avoid nephrotoxic meds. (4) Elevated transaminase level Assessment & Plan: improving, no evidence of hepatitis. Subjective Respiratory: Reports: dry cough Allergies: Coded Allergies: No Known Allergies (Unverified , 07/12/16) All Systems: reviewed and negative except above Subjective she was feeling better, denied any fever or chills, had dry cough only. Objective Vital Signs Last 24 Hour Vital Signs Date Time Temp Pulse Resp B/P Pulse Ox O2 Delivery O2 Flow Rate FiO2 07/24/16 16:00 96.7 73 18 100/71 97 Room Air 07/24/16 11:48 97.7 77 19 99/45 97 Room Air 07/24/16 07:24 Room Air 07/24/16 07:24 100 Room Air 07/24/16 04:00 97.3 74 18 94/59 94 Room Air 07/24/16 00:00 97.5 80 18 91/53 96 Room Air 07/23/16 20:00 98.5 82 20 109/75 97 Room Air 07/23/16 19:00 97 Nasal Cannula 2.0 28 07/23/16 19:00 Nasal Cannula 2.0 28 Height (Feet): 4 Height (Inches): 10.00 Weight (Pounds): 105 General Appearance: WD/WN, no acute distress HEENT: normocephalic, atraumatic, anicteric, mucous membranes moist Respiratory/Chest: chest wall non-tender, lungs clear, normal breath sounds, no respiratory distress, no accessory muscle use Cardiovascular: normal peripheral pulses, normal rate, regular rhythm, no JVD Abdomen: normal bowel sounds, soft, non tender, no organomegaly, non distended , no mass Extremities: no cyanosis, no clubbing Skin: no rash, no lesions, no ulcers Current Medications Medications (Trade) Dose Ordered Sig/Richar Route PRN Reason Start Time Stop Time Status Last Admin Dose Admin Acetaminophen (Tylenol) 650 mg Q4H PRN ORAL fever 07/12/16 06:00 08/11/16 05:59 07/23/16 01:01 Al Hydroxide/Mg Hydroxide (Mylanta II) 30 ml Q6H PRN ORAL dyspepsia 07/12/16 06:00 08/11/16 05:59 Albuterol/ Ipratropium 3 ml 3 ml Q4H PRN HHN Shortness of Breath 07/20/16 16:15 07/25/16 16:14 Amphotericin B Liposome/Dextrose (Ambisome/D5W) 110 ml @ 55 mls/hr Q24H IV 07/22/16 16:00 07/27/16 15:59 07/24/16 16:34 Clindamycin HCl/ Dextrose 50 ml @ 100 mls/hr Q8HR IV 07/21/16 14:00 07/28/16 13:59 07/24/16 14:31 Heparin Sodium (Porcine) (Heparin 5000 units/ml) 5,000 units EVERY 12 HOURS SUBQ 07/12/16 09:00 08/11/16 08:59 07/24/16 08:38 Levothyroxine Sodium 100 mcg 100 mcg DAILY@0630 ORAL 07/12/16 06:30 08/11/16 06:29 07/24/16 06:06 Nitroglycerin (Ntg) 0.4 mg Q5M PRN SL Prn Chest Pain 07/12/16 06:00 08/11/16 05:59 Ondansetron HCl (Zofran) 4 mg Q6H PRN IVP Nausea & Vomiting 07/12/16 06:00 08/11/16 05:59 Piperacillin Sod/ Tazobactam Sod/ Dextrose (Zosyn/D5W) 110 ml @ 27.5 mls/hr Q8H IVPB 07/12/16 18:00 07/25/16 17:59 07/24/16 10:33 Polyethylene Glycol (Miralax) 17 gm DAILYPRN PRN ORAL Constipation 07/12/16 06:00 08/11/16 05:59 Promethazine HCl/ Codeine (Phenergan with Codeine) 5 ml Q4H PRN ORAL For Cough 07/12/16 06:00 08/11/16 05:59 07/22/16 21:02 Sodium Chloride 1,000 ml @ 50 mls/hr Q20H IV 07/21/16 13:00 08/20/16 12:59 07/24/16 16:34 Italo Nation M.D. Jul 24, 2016 17:53
[2016-07-24 19:00] VITALS: BP 101/68
[2016-07-25] VITALS: BP 102/57
[2016-07-25] MEDS: Clindamycin 600mg 50 ML IV SCH ×4 (02:05→23:44)
[2016-07-25] MEDS: Piperacillin/Tazobactam 3.375 GM in D5W 110 ML IVPB SCH ×3 (02:38→19:18)
[2016-07-25 04:00] VITALS: BP 101/53
[2016-07-25 07:29] LABS: MEAN CORPUSCULAR HEMOGLOBIN 28.9 PG (27.0-31.0); MEAN CORPUSCULAR HGB CONC 32.9 G/DL (32.0-36.0); MEAN CORPUSCULAR VOLUME 88 FL (80-99); MEAN PLATELET VOLUME 11.1 FL (6.5-10.1); PLATELET COUNT 93 K/UL (150-450); RED BLOOD COUNT 4.05 M/UL (4.20-5.40); RED CELL DISTRIBUTION WIDTH 15.1 % (11.6-14.8); WHITE BLOOD COUNT 4.2 K/UL (4.8-10.8)
[2016-07-25 07:36] LABS: ANION GAP 13 (5-15); CARBON DIOXIDE 23 mEQ/L (20-30); CHLORIDE 104 mEQ/L (98-107); CREATININE 0.9 mg/dL (0.5-0.9); GLOMERULAR FILTRATION RATE > 60 mL/min (>60); HEMOLYSIS 3; POTASSIUM 4.2 mEQ/L (3.4-4.9); SODIUM 140 mEQ/L (135-145)
[2016-07-25 08:06] LABS: BILIRUBIN,DIRECT 0.1 mg/dL (0.1-0.3); TOTAL PROTEIN 6.5 g/dL (6.6-8.7)
[2016-07-25 08:15] VITALS: BP 96/59
[2016-07-25 08:45] LABS: BAND NEUTROPHILS % (MANUAL) 0 % (0-8); BASOPHILS % (MANUAL) 0 % (0-2); EOSINOPHILS % (MANUAL) 2 % (0-3); LYMPHOCYTES % (MANUAL) 33 % (20-45); NEUTROPHILS % (MANUAL) 62 % (45-75); PLATELET ESTIMATE DECREASED; TOTAL CELLS COUNTED 100
[2016-07-25 09:52] LABS: ANISOCYTOSIS 1+; PLATELET MORPHOLOGY NORMAL
[2016-07-25] MEDS: Heparin 5000 units/ml inj SUBQ SCH (10:20)
[2016-07-25 11:55] VITALS: BP 116/71
--- NOTE | 2016-07-25 14:40 | General Progress Note ---
Assessment/Plan Problem List: (1) Nosocomial pneumonia ICD Codes: J18.9 - Pneumonia, unspecified organism SNOMED: 706411024 (2) Sepsis ICD Codes: A41.9 - Sepsis, unspecified organism SNOMED: 48191668 (3) CAP (community acquired pneumonia) ICD Codes: J18.9 - Pneumonia, unspecified organism SNOMED: 859201349 (4) Diabetes mellitus ICD Codes: E11.9 - Type 2 diabetes mellitus without complications SNOMED: 10198453 Status: stable, progressing, tolerating diet Assessment/Plan ot pt diet abx cbc bmp am heme eval dc plan Subjective Constitutional: Reports: weakness Allergies: Coded Allergies: No Known Allergies (Unverified , 07/12/16) All Systems: reviewed and negative except above Subjective 02nc sl sob Objective Last 24 Hour Vital Signs Date Time Temp Pulse Resp B/P Pulse Ox O2 Delivery O2 Flow Rate FiO2 07/25/16 11:55 97.6 70 21 116/71 98 Room Air 07/25/16 08:15 98.3 80 19 96/59 97 Room Air 07/25/16 07:30 96 Nasal Cannula 2.0 28 07/25/16 07:30 Room Air 2.0 28 07/25/16 04:00 97.2 60 18 101/53 97 Room Air 07/25/16 00:00 97.5 62 20 102/57 95 Room Air 07/24/16 19:36 Room Air 07/24/16 19:36 96 Room Air 07/24/16 19:00 96.8 72 20 101/68 96 Room Air 07/24/16 16:00 96.7 73 18 100/71 97 Room Air Intake and Output 07/24/16 07/25/16 19:00 07:00 Intake Total 830.0 ml 570.0 ml Balance 830.0 ml 570.0 ml Intake Oral 720 ml 360 ml IV Total 110.0 ml 210.0 ml # Voids 6 Laboratory Tests 07/25/16 05:50: White Blood Count 4.2L, Red Blood Count 4.05L, Hemoglobin 11.7L, Hematocrit 35.5L, Mean Corpuscular Volume 88, Mean Corpuscular Hemoglobin 28.9, Mean Corpuscular Hemoglobin Concent 32.9, Red Cell Distribution Width 15.1H, Platelet Count 93L, Mean Platelet Volume 11.1H, Neutrophils (%) (Auto) , Lymphocytes (%) (Auto) , Monocytes (%) (Auto) , Eosinophils (%) (Auto) , Basophils (%) (Auto) , Differential Total Cells Counted 100, Neutrophils % ( Manual) 62, Lymphocytes % (Manual) 33, Monocytes % (Manual) 3, Eosinophils % ( Manual) 2, Basophils % (Manual) 0, Band Neutrophils 0, Platelet Estimate DecreasedL, Platelet Morphology Normal, Anisocytosis 1+, Erythrocyte Sedimentation Rate 93H, Sodium Level 140, Potassium Level 4.2, Chloride Level 104, Carbon Dioxide Level 23, Anion Gap 13, Blood Urea Nitrogen 14, Creatinine 0.9, Estimat Glomerular Filtration Rate > 60, Glucose Level 115H, Calcium Level 9.0, Total Bilirubin 0.2, Direct Bilirubin 0.1, Aspartate Amino Transf (AST/SGOT ) 23, Alanine Aminotransferase (ALT/SGPT) 41H, Alkaline Phosphatase 129H, C- Reactive Protein, Quantitative 2.2H, Total Protein 6.5L, Albumin 2.8L Height (Feet): 4 Height (Inches): 10.00 Weight (Pounds): 105 General Appearance: lethargic EENT: normal ENT inspection Neck: normal alignment Cardiovascular: normal peripheral pulses, normal rate, regular rhythm Respiratory/Chest: chest wall non-tender, lungs clear, normal breath sounds Abdomen: normal bowel sounds, non tender, soft Extremities: normal range of motion, non-tender, normal inspection Edema: no edema noted Arm (L), no edema noted Arm (R), no edema noted Leg (L), no edema noted Leg (R), no edema noted Pedal (L), no edema noted Pedal (R), no edema noted Generalized Neurologic: responsive, motor weakness Skin: normal pigmentation, warm/dry NITIN WAGONER Jul 25, 2016 14:39
[2016-07-25 16:00] VITALS: BP 90/57
[2016-07-25] MEDS: AMPHOTERICIN B LIPOSOME IV SCH (16:54)
[2016-07-25] MEDS: D5W IV SCH (16:54)
--- NOTE | 2016-07-25 17:13 | Infectious Diseases Prog Note ---
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 screening for influenza is negative. screening for vasculitis is negative , may need bronchoscopy OR lung biopsy from the lesions if recurrent symptoms . echo ruled out vegetations . will screen for coccidiomycosis (2) Diabetes mellitus Assessment & Plan: recommend tight glycemic control to keep blood glucose between 80-120 (3) KARMA (acute kidney injury) Assessment & Plan: stable, continue IVF for hydration, avoid nephrotoxic meds. (4) Elevated transaminase level Assessment & Plan: improving, with no evidence of hepatitis.will continue to monitor LFT Subjective Constitutional: Denies: anorexia, chills, drenching sweats, fatigue, fever, no symptoms, other HEENT: Denies: congestion, coryza, dysphagia, hearing change, no symptoms, other, visual change Respiratory: Reports: dry cough Cardiovascular: Denies: chest pain, dyspnea on exertion, no symptoms, other, palpitations Gastrointestinal/Abdominal: Denies: bloating, blood in stool, constipation, diarrhea, nausea, no symptoms, other, vomiting Genitourinary: Denies: dysuria, frequency, hematuria, last menstrual period, no symptoms, nocturia, other, vaginal bleed/discharge Neurologic: Denies: confusion, headache, no symptoms, numbness, other, weakness Psychiatric: Denies: anxiety, depression, no symptoms, other Skin: Denies: no symptoms, other, rash, ulcer Endocrine: Denies: feels cold, feels warm, no symptoms, other Hematologic: Denies: bleeding, no symptoms, other, swollen lymph nodes Allergies: Coded Allergies: No Known Allergies (Unverified , 07/12/16) Subjective she was feeling better, denied any fever or chills, had dry cough only. Objective Vital Signs Last 24 Hour Vital Signs Date Time Temp Pulse Resp B/P Pulse Ox O2 Delivery O2 Flow Rate FiO2 07/25/16 16:00 96.3 64 18 90/57 Room Air 07/25/16 11:55 97.6 70 21 116/71 98 Room Air 07/25/16 08:15 98.3 80 19 96/59 97 Room Air 07/25/16 07:30 96 Nasal Cannula 2.0 28 07/25/16 07:30 Room Air 2.0 28 07/25/16 04:00 97.2 60 18 101/53 97 Room Air 07/25/16 00:00 97.5 62 20 102/57 95 Room Air 07/24/16 19:36 Room Air 07/24/16 19:36 96 Room Air 07/24/16 19:00 96.8 72 20 101/68 96 Room Air Height (Feet): 4 Height (Inches): 10.00 Weight (Pounds): 105 General Appearance: WD/WN, no acute distress HEENT: normocephalic, atraumatic, anicteric, mucous membranes moist Respiratory/Chest: chest wall non-tender, lungs clear, normal breath sounds, no respiratory distress, no accessory muscle use Cardiovascular: normal peripheral pulses, normal rate, regular rhythm Abdomen: normal bowel sounds, soft, non tender, no organomegaly, non distended , no mass Extremities: no cyanosis, no clubbing Skin: no rash, no lesions Laboratory Tests Test 07/25/16 05:50 White Blood Count 4.2 K/UL (4.8-10.8) L Red Blood Count 4.05 M/UL (4.20-5.40) L Hemoglobin 11.7 G/DL (12.0-16.0) L Hematocrit 35.5 % (37.0-47.0) L Mean Corpuscular Volume 88 FL (80-99) Mean Corpuscular Hemoglobin 28.9 PG (27.0-31.0) Mean Corpuscular Hemoglobin Concent 32.9 G/DL (32.0-36.0) Red Cell Distribution Width 15.1 % (11.6-14.8) H Platelet Count 93 K/UL (150-450) L Mean Platelet Volume 11.1 FL (6.5-10.1) H Neutrophils (%) (Auto) % (45.0-75.0) Lymphocytes (%) (Auto) % (20.0-45.0) Monocytes (%) (Auto) % (1.0-10.0) Eosinophils (%) (Auto) % (0.0-3.0) Basophils (%) (Auto) % (0.0-2.0) Differential Total Cells Counted 100 Neutrophils % (Manual) 62 % (45-75) Lymphocytes % (Manual) 33 % (20-45) Monocytes % (Manual) 3 % (1-10) Eosinophils % (Manual) 2 % (0-3) Basophils % (Manual) 0 % (0-2) Band Neutrophils 0 % (0-8) Platelet Estimate Decreased L Platelet Morphology Normal Anisocytosis 1+ Erythrocyte Sedimentation Rate 93 MM/HR (0-20) H Sodium Level 140 mEQ/L (135-145) Potassium Level 4.2 mEQ/L (3.4-4.9) Chloride Level 104 mEQ/L (98-107) Carbon Dioxide Level 23 mEQ/L (20-30) Anion Gap 13 (5-15) Blood Urea Nitrogen 14 mg/dL (7-23) Creatinine 0.9 mg/dL (0.5-0.9) Estimat Glomerular Filtration Rate > 60 mL/min (>60) Glucose Level 115 mg/dL (74-106) H Calcium Level 9.0 mg/dL (8.6-10.2) Total Bilirubin 0.2 mg/dL (0.0-1.2) Direct Bilirubin 0.1 mg/dL (0.1-0.3) Aspartate Amino Transf (AST/SGOT) 23 U/L (5-40) Alanine Aminotransferase (ALT/SGPT) 41 U/L (3-33) H Alkaline Phosphatase 129 U/L (35-104) H C-Reactive Protein, Quantitative 2.2 mg/dL (< 0.5) H Total Protein 6.5 g/dL (6.6-8.7) L Albumin 2.8 g/dL (3.5-5.2) L Current Medications Medications (Trade) Dose Ordered Sig/Richar Route PRN Reason Start Time Stop Time Status Last Admin Dose Admin Acetaminophen (Tylenol) 650 mg Q4H PRN ORAL fever 07/12/16 06:00 08/11/16 05:59 07/23/16 01:01 Al Hydroxide/Mg Hydroxide (Mylanta II) 30 ml Q6H PRN ORAL dyspepsia 07/12/16 06:00 08/11/16 05:59 Amphotericin B Liposome/Dextrose (Ambisome/D5W) 110 ml @ 55 mls/hr Q24H IV 07/22/16 16:00 07/27/16 15:59 07/25/16 16:54 Clindamycin HCl/ Dextrose 50 ml @ 100 mls/hr Q8HR IV 07/21/16 14:00 07/28/16 13:59 07/25/16 13:44 Heparin Sodium (Porcine) (Heparin 5000 units/ml) 5,000 units EVERY 12 HOURS SUBQ 07/12/16 09:00 08/11/16 08:59 07/25/16 10:20 Levothyroxine Sodium 100 mcg 100 mcg DAILY@0630 ORAL 07/12/16 06:30 08/11/16 06:29 07/25/16 06:32 Nitroglycerin (Ntg) 0.4 mg Q5M PRN SL Prn Chest Pain 07/12/16 06:00 08/11/16 05:59 Ondansetron HCl (Zofran) 4 mg Q6H PRN IVP Nausea & Vomiting 07/12/16 06:00 08/11/16 05:59 Piperacillin Sod/ Tazobactam Sod 3.375 gm/Dextrose 110 ml @ 27.5 mls/hr Q8H IVPB 07/12/16 18:00 07/30/16 17:59 07/25/16 10:14 Polyethylene Glycol (Miralax) 17 gm DAILYPRN PRN ORAL Constipation 07/12/16 06:00 08/11/16 05:59 Promethazine HCl/ Codeine (Phenergan with Codeine) 5 ml Q4H PRN ORAL For Cough 07/12/16 06:00 08/11/16 05:59 07/22/16 21:02 Sodium Chloride 1,000 ml @ 50 mls/hr Q20H IV 07/21/16 13:00 08/20/16 12:59 07/25/16 16:56 [place] M.D. Jul 25, 2016 17:13
[2016-07-25 19:00] VITALS: BP 139/68
[2016-07-25 20:08] LABS: HEMOLYSIS 32; IRON 63 ug/dL (37-145); TOTAL IRON BINDING CAPACITY 238 ug/dL (250-400)
[2016-07-25 20:14] LABS: FERRITIN 117 ng/mL (13-150)
[2016-07-26] VITALS: BP 104/61
[2016-07-26] MEDS: Piperacillin/Tazobactam 3.375 GM in D5W 110 ML IVPB SCH ×2 (01:49→10:27)
--- NOTE | 2016-07-26 01:58 | Consultation ---
DATE OF CONSULTATION: 07/25/2016 CONSULTING PHYSICIAN: Phillip Mendez M.D. REQUESTING PHYSICIAN: Jose Horner D.O. REASON FOR CONSULTATION: Evaluation of thrombocytopenia. IDENTIFICATION DATA: Dear Dr. Jose Horner, The patient is a pleasant 46-year-old female with past medical history significant for hypothyroidism, deep vein thrombosis, cough, as well as history of shortness of breath that has been ongoing for the past week prior to admission. She had productive whitish sputum upon admission and x-ray showed evidence of a left lower lobe infiltrate. She was initially started on antibiotics including vancomycin and Zosyn. ID service was consulted. The patient was noticed to have a multi-focal cavitary lesions on the CT scan concerning for . The patient was started on amphotericin and platelet count has decreased from 300,000 to currently 96,000. Repeat CT scan show was a necrotizing lesion and may need bronchoscopy. Pulmonary was asked to evaluate the patient as well and Hematology was called for evaluation of thrombocytopenia. PAST MEDICAL HISTORY: As noted above. Hypothyroidism. PAST SURGICAL HISTORY: None known. MEDICATIONS: At this time amphotericin, clindamycin, and Zosyn. ALLERGIES: None. SOCIAL HISTORY: No alcohol, tobacco, or illicit drug use. FAMILY HISTORY: Noncontributory. REVIEW OF SYSTEMS: Constitutional: No fever, chills, or night sweats. Skin: No rashes, lumps, or itching. HEENT: No headache, hearing or vision changes. Breasts: No lumps, pain, or discharge. Pulmonary: No cough, sputum, or shortness of breath. Cardiovascular: No chest pain, tightness, or palpitations. Gastrointestinal: No nausea, vomiting, or diarrhea. Genitourinary: No dysuria, frequency, or urgency. Musculoskeletal: No joint swelling, muscle pain, or trauma. Neurological: No dizziness, fainting, or seizures. PHYSICAL EXAMINATION: GENERAL: The patient is in no acute distress. VITAL SIGNS: Temperature 96.3 degrees Fahrenheit , pulse 52, respiratory rate 12, and blood pressure 90/57. PULMONARY: Decreased breath sounds. CARDIOVASCULAR: Regular rate and rhythm. No S3 or S4. ABDOMEN: Soft, nontender, and nondistended. EXTREMITIES: A 1+ edema. LABORATORY DATA: WBC , hemoglobin 9.7, hematocrit 36, and platelet count 93,000. ESR 93. BUN of 14 and creatinine 0.9. IMAGING: Chest x-ray from 07/22/2016 shows improving persistent bibasilar patchy infiltrates. CT scan from 07/19/2016 shows bacterial infection. ASSESSMENT: 1. Thrombocytopenia, very likely due to use of amphotericin , which is a mild suppression drug. This is less likely an infection and the patient 07/22/2016. Her platelet count has decreased from 317,000 to currently 93,000. The patient's leukopenia has also lessened from . 2. Leukopenia secondary to use. 3. Anemia secondary to chronic disease. 4. Decreased hemoglobin and hematocrit, rule out gastrointestinal bleed. 5. Community acquired pneumonia. 6. might be transaminitis. 7. Acute kidney injury. RECOMMENDATIONS: 1. Monitor counts. 2. discontinue amphotericin and change to another drug. 3. Anemia workup has been ordered. 4. Peripheral smear to review. 5. Medications reviewed. 6. We will follow up on ID, Pulmonary, and wound care notes. 7. Avoid nephrotoxic medications. 8. Continue to monitor transaminitis. 9. Imaging has been reviewed. 10. DVT prophylaxis with SCDs. 11. HIV antibody test has been ordered. 12. Heparin has been discontinued. 13. Discussed with staff. Thank you, Dr. Jose Horner, for this kind referral. Please do not hesitate to contact me if you have any further questions. Phillip Mendez M.D. DR: IVETT JOB#: [id number] CC:
[2016-07-26 04:00] VITALS: BP 99/54
[2016-07-26] MEDS: Clindamycin 600mg 50 ML IV SCH ×2 (05:51→13:31)
[2016-07-26 07:09] LABS: MEAN CORPUSCULAR HEMOGLOBIN 28.3 PG (27.0-31.0); MEAN CORPUSCULAR HGB CONC 32.4 G/DL (32.0-36.0); MEAN CORPUSCULAR VOLUME 87 FL (80-99); MEAN PLATELET VOLUME 10.2 FL (6.5-10.1); PLATELET COUNT 72 K/UL (150-450); RED CELL DISTRIBUTION WIDTH 14.7 % (11.6-14.8); WHITE BLOOD COUNT 4.6 K/UL (4.8-10.8)
[2016-07-26 07:47] LABS: ANION GAP 17 (5-15); CALCIUM 8.9 mg/dL (8.6-10.2); CARBON DIOXIDE 21 mEQ/L (20-30); CHLORIDE 103 mEQ/L (98-107); CREATININE 0.9 mg/dL (0.5-0.9); GLOMERULAR FILTRATION RATE > 60 mL/min (>60); HEMOLYSIS 3; POTASSIUM 4.2 mEQ/L (3.4-4.9); SODIUM 141 mEQ/L (135-145)
[2016-07-26 09:31] LABS: BAND NEUTROPHILS % (MANUAL) 0 % (0-8); BASOPHILS % (MANUAL) 0 % (0-2); EOSINOPHILS % (MANUAL) 2 % (0-3); LYMPHOCYTES % (MANUAL) 31 % (20-45); NEUTROPHILS % (MANUAL) 64 % (45-75); PLATELET ESTIMATE DECREASED; PLATELET MORPHOLOGY NORMAL; TOTAL CELLS COUNTED 100
--- NOTE | 2016-07-26 11:05 | General Progress Note ---
Assessment/Plan Assessment/Plan 1. Thrombocytopenia, very likely due to use of amphotericin very myelosuppressive, patients cytopenias began with initiation of drug. Patient also with leukopenia 2/2 to meds as well 2. Leukopenia secondary to med use 3. Anemia secondary to chronic disease. 4. Decreased hemoglobin and hematocrit, rule out gastrointestinal bleed. 5. Community acquired pneumonia. 6. Elevated LFts 2/2 transaminitis. 7. Acute kidney injury. RECOMMENDATIONS: 1. Monitor counts. 2. Consider to D/C amphotericin and change to another drug per ID. 3. Anemia workup reviewed 4. Peripheral smear has been reviewed 5. Medications reviewed. 6. We will follow up on ID, Pulmonary, and wound care notes. 7. Avoid nephrotoxic medications. 8. Continue to monitor transaminitis. 9. Imaging reviewed. 10. DVT prophylaxis with SCDs. 11. Discussed with staff. Thank you, Phillip Mendez MD Subjective Constitutional: Reports: no symptoms HEENT: Reports: no symptoms Cardiovascular: Reports: no symptoms Respiratory: Reports: no symptoms Gastrointestinal/Abdominal: Reports: no symptoms Genitourinary: Reports: no symptoms Neurologic/Psychiatric: Reports: anxiety Endocrine: Reports: no symptoms Hematologic/Lymphatic: Reports: anemia Allergies: Coded Allergies: No Known Allergies (Unverified , 07/12/16) Subjective stable, without complaints, no f/c Objective Last 24 Hour Vital Signs Date Time Temp Pulse Resp B/P Pulse Ox O2 Delivery O2 Flow Rate FiO2 07/26/16 09:33 Room Air 07/26/16 09:33 96 Room Air 21 07/26/16 04:00 97.2 59 18 99/54 98 Room Air 07/26/16 00:00 97.5 59 18 104/61 98 Room Air 07/25/16 19:25 Room Air 2.0 28 07/25/16 19:15 96 Nasal Cannula 2.0 28 07/25/16 19:00 96.0 74 18 139/68 Room Air 07/25/16 16:00 96.3 64 18 90/57 Room Air 07/25/16 11:55 97.6 70 21 116/71 98 Room Air Intake and Output 07/25/16 07/26/16 19:00 07:00 Intake Total 1090 ml 1522.5 ml Balance 1090 ml 1522.5 ml Intake Oral 480 ml 980 ml IV Total 210 ml 542.5 ml Other 400 ml # Voids 5 7 # Bowel Movements 2 Laboratory Tests 07/25/16 19:30: Folate [Pending], Heparin-PF4 Antibody Screen [Pending] 07/26/16 04:40: White Blood Count 4.6L, Red Blood Count 3.80L, Hemoglobin 10.8L, Hematocrit 33.2L, Mean Corpuscular Volume 87, Mean Corpuscular Hemoglobin 28.3, Mean Corpuscular Hemoglobin Concent 32.4, Red Cell Distribution Width 14.7, Platelet Count 72L, Mean Platelet Volume 10.2H, Neutrophils (%) (Auto) , Lymphocytes (%) (Auto) , Monocytes (%) (Auto) , Eosinophils (%) (Auto) , Basophils (%) (Auto) , Differential Total Cells Counted 100, Neutrophils % (Manual) 64, Lymphocytes % ( Manual) 31, Monocytes % (Manual) 3, Eosinophils % (Manual) 2, Basophils % ( Manual) 0, Band Neutrophils 0, Platelet Estimate DecreasedL, Platelet Morphology Normal, Red Blood Cell Morphology Normal, Sodium Level 141, Potassium Level 4.2, Chloride Level 103, Carbon Dioxide Level 21, Anion Gap 17H , Blood Urea Nitrogen 18, Creatinine 0.9, Estimat Glomerular Filtration Rate > 60, Glucose Level 115H, Calcium Level 8.9 Height (Feet): 4 Height (Inches): 10.00 Weight (Pounds): 105 General Appearance: no apparent distress EENT: TMs normal Neck: normal alignment Cardiovascular: regular rhythm Respiratory/Chest: no respiratory distress Abdomen: non tender Extremities: non-tender Edema: 1+ Leg (L), 1+ Leg (R) Edema: mild edema Neurologic: alert Skin: normal pigmentation Phillip Mendez Jul 26, 2016 11:04
[2016-07-26 11:58] VITALS: BP 105/66
--- NOTE | 2016-07-26 13:06 | General Progress Note ---
Assessment/Plan Problem List: (1) Nosocomial pneumonia ICD Codes: J18.9 - Pneumonia, unspecified organism SNOMED: 130172789 (2) Sepsis ICD Codes: A41.9 - Sepsis, unspecified organism SNOMED: 18096288 (3) CAP (community acquired pneumonia) ICD Codes: J18.9 - Pneumonia, unspecified organism SNOMED: 726886991 (4) Diabetes mellitus ICD Codes: E11.9 - Type 2 diabetes mellitus without complications SNOMED: 61085710 Status: stable, progressing, tolerating diet Assessment/Plan ot pt diet abx cbc bmp am heme eval dc plan Subjective Constitutional: Reports: weakness Allergies: Coded Allergies: No Known Allergies (Unverified , 07/12/16) All Systems: reviewed and negative except above Subjective 02nc sl sob Objective Last 24 Hour Vital Signs Date Time Temp Pulse Resp B/P Pulse Ox O2 Delivery O2 Flow Rate FiO2 07/26/16 11:58 97.7 62 19 105/66 95 Room Air 07/26/16 09:33 Room Air 07/26/16 09:33 96 Room Air 21 07/26/16 04:00 97.2 59 18 99/54 98 Room Air 07/26/16 00:00 97.5 59 18 104/61 98 Room Air 07/25/16 19:25 Room Air 2.0 28 07/25/16 19:15 96 Nasal Cannula 2.0 28 07/25/16 19:00 96.0 74 18 139/68 Room Air 07/25/16 16:00 96.3 64 18 90/57 Room Air Intake and Output 07/25/16 07/26/16 19:00 07:00 Intake Total 1090 ml 1522.5 ml Balance 1090 ml 1522.5 ml Intake Oral 480 ml 980 ml IV Total 210 ml 542.5 ml Other 400 ml # Voids 5 7 # Bowel Movements 2 Laboratory Tests 07/25/16 19:30: Folate 10.7, Heparin-PF4 Antibody Screen [Pending] 07/26/16 04:40: White Blood Count 4.6L, Red Blood Count 3.80L, Hemoglobin 10.8L, Hematocrit 33.2L, Mean Corpuscular Volume 87, Mean Corpuscular Hemoglobin 28.3, Mean Corpuscular Hemoglobin Concent 32.4, Red Cell Distribution Width 14.7, Platelet Count 72L, Mean Platelet Volume 10.2H, Neutrophils (%) (Auto) , Lymphocytes (%) (Auto) , Monocytes (%) (Auto) , Eosinophils (%) (Auto) , Basophils (%) (Auto) , Differential Total Cells Counted 100, Neutrophils % (Manual) 64, Lymphocytes % ( Manual) 31, Monocytes % (Manual) 3, Eosinophils % (Manual) 2, Basophils % ( Manual) 0, Band Neutrophils 0, Platelet Estimate DecreasedL, Platelet Morphology Normal, Red Blood Cell Morphology Normal, Sodium Level 141, Potassium Level 4.2, Chloride Level 103, Carbon Dioxide Level 21, Anion Gap 17H , Blood Urea Nitrogen 18, Creatinine 0.9, Estimat Glomerular Filtration Rate > 60, Glucose Level 115H, Calcium Level 8.9 Height (Feet): 4 Height (Inches): 10.00 Weight (Pounds): 105 General Appearance: lethargic EENT: normal ENT inspection Neck: normal alignment Cardiovascular: normal peripheral pulses, normal rate, regular rhythm Respiratory/Chest: chest wall non-tender, lungs clear, decreased breath sounds Abdomen: normal bowel sounds, non tender, soft Extremities: normal inspection Edema: no edema noted Arm (L), no edema noted Arm (R), no edema noted Leg (L), no edema noted Leg (R), no edema noted Pedal (L), no edema noted Pedal (R), no edema noted Generalized Neurologic: responsive, motor weakness Skin: normal pigmentation, warm/dry NITIN WAGONER Jul 26, 2016 13:06
[2016-07-26] MEDS ORDERED: AUGMENTIN 875-1 EAC1 ORAL (14:03)
[2016-07-26] MEDS ORDERED: ITRACONAZOLE100 MG PO (14:04)
[2016-07-26] MEDS ORDERED: NS 275ml ONE (15:59)
[2016-07-26] MEDS ORDERED: 1/2 NS 1000ml IV ONE (15:59)
[2016-07-26] MEDS ORDERED: Tubing IV Secondary IV ONE (15:59)
--- NOTE | 2016-07-26 18:41 | Infectious Diseases Prog Note ---
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 screening for influenza is negative. screening for vasculitis is negative , may need bronchoscopy OR lung biopsy from the lesions if recurrent symptoms or readmitted . echo ruled out vegetations . screening for coccidiomycosis is pending , will follow up . patient needs to follow up with her [facility] for liver function test monitor, she is aware. (2) Diabetes mellitus Assessment & Plan: recommend tight glycemic control to keep blood glucose between 80-120 (3) KARMA (acute kidney injury) Assessment & Plan: improved, stable, avoid nephrotoxic meds. (4) Elevated transaminase level Assessment & Plan: improving, with no evidence of hepatitis.will continue to monitor LFT as an out patient while on fluconazol. Subjective Constitutional: Denies: anorexia, chills, drenching sweats, fatigue, fever, no symptoms, other HEENT: Denies: congestion, coryza, dysphagia, hearing change, no symptoms, other, visual change Respiratory: Denies: dry cough, no symptoms, other, productive cough, shortness of breath Breasts: Denies: discharge, no symptoms, other, swelling, tenderness Cardiovascular: Denies: chest pain, dyspnea on exertion, no symptoms, other, palpitations Gastrointestinal/Abdominal: Denies: bloating, blood in stool, constipation, diarrhea, nausea, no symptoms, other, vomiting Genitourinary: Denies: dysuria, frequency, hematuria, last menstrual period, no symptoms, nocturia, other, vaginal bleed/discharge Neurologic: Denies: confusion, headache, no symptoms, numbness, other, weakness Psychiatric: Denies: anxiety, depression, no symptoms, other Allergies: Coded Allergies: No Known Allergies (Unverified , 07/12/16) Subjective she was feeling better, denied any fever or chills, had dry cough only. Objective Vital Signs Last 24 Hour Vital Signs Date Time Temp Pulse Resp B/P Pulse Ox O2 Delivery O2 Flow Rate FiO2 07/26/16 11:58 97.7 62 19 105/66 95 Room Air 07/26/16 09:33 Room Air 07/26/16 09:33 96 Room Air 21 07/26/16 04:00 97.2 59 18 99/54 98 Room Air 07/26/16 00:00 97.5 59 18 104/61 98 Room Air 07/25/16 19:25 Room Air 2.0 28 07/25/16 19:15 96 Nasal Cannula 2.0 28 07/25/16 19:00 96.0 74 18 139/68 Room Air Height (Feet): 4 Height (Inches): 10.00 Weight (Pounds): 105 General Appearance: WD/WN, no acute distress HEENT: normocephalic, atraumatic, anicteric, mucous membranes moist Respiratory/Chest: chest wall non-tender, lungs clear, normal breath sounds, no respiratory distress, no accessory muscle use Cardiovascular: normal peripheral pulses, normal rate, regular rhythm, no gallop/murmur, no JVD Abdomen: normal bowel sounds, soft, non tender, no organomegaly, non distended , no mass, no scars Extremities: no cyanosis, no clubbing Laboratory Tests Test 07/25/16 19:30 07/26/16 04:40 Folate 10.7 ng/mL (>3.0) Heparin-PF4 Antibody Screen Pending White Blood Count 4.6 K/UL (4.8-10.8) L Red Blood Count 3.80 M/UL (4.20-5.40) L Hemoglobin 10.8 G/DL (12.0-16.0) L Hematocrit 33.2 % (37.0-47.0) L Mean Corpuscular Volume 87 FL (80-99) Mean Corpuscular Hemoglobin 28.3 PG (27.0-31.0) Mean Corpuscular Hemoglobin Concent 32.4 G/DL (32.0-36.0) Red Cell Distribution Width 14.7 % (11.6-14.8) Platelet Count 72 K/UL (150-450) L Mean Platelet Volume 10.2 FL (6.5-10.1) H Neutrophils (%) (Auto) % (45.0-75.0) Lymphocytes (%) (Auto) % (20.0-45.0) Monocytes (%) (Auto) % (1.0-10.0) Eosinophils (%) (Auto) % (0.0-3.0) Basophils (%) (Auto) % (0.0-2.0) Differential Total Cells Counted 100 Neutrophils % (Manual) 64 % (45-75) Lymphocytes % (Manual) 31 % (20-45) Monocytes % (Manual) 3 % (1-10) Eosinophils % (Manual) 2 % (0-3) Basophils % (Manual) 0 % (0-2) Band Neutrophils 0 % (0-8) Platelet Estimate Decreased L Platelet Morphology Normal Red Blood Cell Morphology Normal Sodium Level 141 mEQ/L (135-145) Potassium Level 4.2 mEQ/L (3.4-4.9) Chloride Level 103 mEQ/L (98-107) Carbon Dioxide Level 21 mEQ/L (20-30) Anion Gap 17 (5-15) H Blood Urea Nitrogen 18 mg/dL (7-23) Creatinine 0.9 mg/dL (0.5-0.9) Estimat Glomerular Filtration Rate > 60 mL/min (>60) Glucose Level 115 mg/dL (74-106) H Calcium Level 8.9 mg/dL (8.6-10.2) [place] M.D. Jul 26, 2016 18:41
--- NOTE | 2016-07-29 10:16 | Discharge Summary ---
Discharge Summary Hospital Course Date of Admission Jul 12, 2016 at 02:23 Date of Discharge Jul 26, 2016 at 16:00 Admitting Diagnosis Sepsis, pneumonia. HPI Heather Malik is a 46 year old female who was admitted on Jul 12, 2016 at 02:23 for Sepsis,Pneumonia Hospital Course dc summary dictated #[id number] Discharge Medications Continued Medications: Amoxicillin/Potassium Clav 875-125* (Augmentin 875-125 Tablet*) 1 Each Tablet 1 TAB ORAL EVERY 12 HOURS for 10 Days, TAB Itraconazole (Itraconazole) 100 Mg Capsule 200 MG PO EVERY 12 HOURS for 90 Days, CAP Levothyroxine Sodium* (Levothyroxine Sodium*) 100 Mcg Tablet 100 MCG ORAL DAILY, TAB Take in the morning on an empty stomach, at least 30 minutes before food. Discharge Condition Upon Discharge: improving, stable Discharge Disposition Patient was discharged to Home (01) Discharge Diagnoses: Discharge Instructions Discharge Instructions Special Instructions I have been assigned to complete a D/C Summary on this account. I was not involved in the patient management Beena Mcfadden NP (Vanchtein) Jul 29, 2016 10:16
--- NOTE | 2016-07-30 02:39 | Discharge Summary 2 SIG ---
DATE OF ADMISSION: 07/12/2016 DATE OF DISCHARGE: 07/26/2016 REASON FOR ADMISSION: 46-year-old female with a history of hypothyroidism presented with cough and shortness of breath lasted for 8 days. The patient reported fever in the last two days with worsening symptoms, cough was productive, with white to yellow phlegm, worse with exertion and inspiration, worse with lying flat. No hemoptysis. No wheezing. Denied chest pain. Denied palpitation. Denied dizziness. No night sweats. Denied smoking. Denied exposure to sick contacts. Emergency workup revealed leukocytosis with a white blood count of 21.2. Mild anemia with hemoglobin - 11.5. Hematocrit -34.2. Lactic acid within normal limits. Slightly elevated ALT of 40. Troponin was negative. Urinalysis was negative for infection. Chest x-ray revealed multilobar infiltrates, but no effusion or pneumothorax. EKG showed normal sinus rhythm. No PVC. No ectopy. No ischemic changes. Heart rate of 100. Hypoxemic on room air. The patient was provided supplemental oxygen and pulmonary toilet, started on empiric antibiotics, and was admitted to the hospital for further management. ADMITTING DIAGNOSES: 1. Acute respiratory failure with hypoxemia. 2. Sepsis. 3. Community-acquired pneumonia, possibly atypical multifocal pneumonia. HOSPITAL COURSE: The patient was admitted to Med/Surg floor, on isolation. Pulmonary and ID were called on a consult. CT of the chest was initially done upon admission, which revealed patchy nodular cavitary areas of consolidation, which could reflect multifocal pneumonia especially atypical such as fungi and granulomatous disease. The possibility of multifocal neoplasm especially bronchoalveolar cell carcinoma and metastatic neoplasm were not excluded. The patient was placed on isolation, started on antibiotics. Sputum culture was negative. Urine culture was negative. Blood culture were negative. Influenza screen was negative. Sputum AFB x3 was negative. The TB control test was negative. Fungal serology was all negative except histoplasma antibody with a titer 1:8. At the same time, LFTs were closely monitored. They were trending down. Hepatitis panel was negative. The patient was started on amphotericin IV. ID closely followed the patient. Per ID recommendation, the patient can be switched to oral itraconazole and treat histoplasmosis pneumonia for total of 3 months. While in the hospital, the patient was on Zosyn and clindamycin, the patient was switched to oral Augmentin for additional 10 days for presumptive bacterial pneumonia upon discharge. Leukocytosis resolved. Afebrile. Echocardiogram revealed a preserved ejection fracture of 60% to 65%. No evidence of left ventricular hypertrophy. No evidence of vegetation. TANNER screening and ANCA titer were all negative. Rheumatoid factor negative. The patient was noted with the initiation of amphotericin, a decrease of platelets, which were gradually decreased. Hematology consult was requested. Per Hematology, thrombocytopenia was likely secondary to amphotericin since it is extremely myelosuppressive medication and thrombocytopenia, started with the initiation of this drug, Mine Manager recommended to discontinue amphotericin and switched to another drug, which was done prior to discharge. However heparin was discontinued and heparin PF4 antibody screen still pending. Blood sugar was managed with sliding scale of insulin and was stable. LFT trending down. AST down to normal. ALT down to 41. Alkaline phosphatase still elevated. LDH - 189. Defense Analyst closely followed. Follow up CT of the chest revealed clinical improvement with interim marked decrease in size of bilateral parenchymal infiltrates with extensive cavitation now present in essentially all of the previously demonstrated infiltrating lesions. Rapid progression of findings were indicative that the process more likely to be aggressive, inflammatory/infectious versus malignant. Fungal infection of acid-fast bacillus should be considered as a possible etiology. Aggressive necrotizing bacterial infection also a possibility. As mentioned above, the patient was ruled out for AFB , patient was found to have a titer positive for histoplasmosis. The patient will be discharged on additional oral itraconazole for total duration of therapy for 3 months and oral Augmentin for 10 more days. Recommended to repeat CT of the chest after treatment completed. Hemoglobin and hematocrit were stable, at baseline. Anemia workup revealed stable iron and stable B12 and folate level. Levothyroxine continued. The patient was stable for discharge. DISCHARGE DIAGNOSES: 1. Acute respiratory failure with hypoxemia, resolved. 2. Sepsis. 3. Community-acquired pneumonia with multifocal cavitary lesions, likely mixture of septic emboli plus fungal etiology. 4. Cavitary lesions. 5. Hypothyroidism. 6. Elevated LFT. 7. Diabetes mellitus. 8. Thrombocytopenia. 9. Anemia. DISCHARGE MEDICATIONS: See medication reconciliation list. Continue antibiotic as outlined in medication reconciliation list. DISCHARGE INSTRUCTIONS: The patient was discharged home. Recommended followup with the primary medical doctor. Recommended repeat CT chest after completion the course of itraconazole. Jose Horner D.O. I have been assigned to dictate discharge summary on this account and I was not involved in the patient's management. Beena Mcfadden (Vanchtein) NHollyPHolly DR: ALON JOB#: [id number] CC: ZAIRA
== END 2016-07-26 16:00 | disposition home or self-care (01) | DRG 720 ==
LOC: EMR 07-12 00:26 → 4E 07-12 02:23 → EDBEDREQ 07-12 03:04 → EMR 07-12 04:05 → 4E 07-13 14:11
DX: A41.9 Sepsis, unspecified organism (principal); J96.01 Acute respiratory failure with hypoxia; I26.90 Septic pulmonary embolism without acute cor pulmonale; N17.9 Acute kidney failure, unspecified; J18.9 Pneumonia, unspecified organism; B48.8 Other specified mycoses; D69.59 Other secondary thrombocytopenia; E11.9 Type 2 diabetes mellitus without complications; D63.8 Anemia in other chronic diseases classified elsewhere; D64.9 Anemia, unspecified; E03.9 Hypothyroidism, unspecified; T36.7X5A Adverse effect of antifungal antibiotics, systemically used, initial encounter
CPT/HCPCS: 36415; 71010; 71250; 71260; 80048; 80053; 80069; 80076; 80202; 81003; 82164; 82378; 82607; 82728; 82746; 83540; 83550; 83605; 83615; 84484; 85007; 85025; 85610; 85651; 85730; 86021; 86039; 86140; 86171; 86431; 86580; 86612; 86703; 86705; 86709; 86710; 86803; 87040; 87070; 87086; 87116; 87205; 87340; 87385; 87449; 87556; 93306; 94640; 94664; 94760; J0289; J3490; S0077

== ENCOUNTER 2016-08-05 14:27 | Emergency (ER) | payer MEDICAID ==
[~2016-08-05] VITALS: Ht 144.8 cm; Wt 47.6 kg
[~2016-08-05 14:27] MED LIST: AUGMENTIN 875-1 EAC1 ORAL; ITRACONAZOLE100 MG PO; LEVOTHYROXINE100 MCG ORAL
[2016-08-05 15:00] VITALS: BP 128/74
[2016-08-05 15:40] VITALS: BP 128/74
--- NOTE | 2016-08-05 17:56 | Emergency Room Report ---
History of Present Illness General Chief Complaint: General Complaint Source: Patient Present Illness HPI Patient had been discharged from our facility recently with diagnosis of confusion and pneumonia Patient was provided paperwork regarding outpatient followup Patient's daughter is here with the patient She reports that she does not have a primary physician Apparently was asking the registration if she could followup her And after being told yes patient checked in For primary followup denies any change in symptoms denies any increased shortness of breath denies any cough she feels that she has been doing well and similar to how she felt when she was discharged Allergies: Coded Allergies: No Known Allergies (Unverified , 07/12/16) Patient History Past Medical History: see triage record Pertinent Family History: none Last Menstrual Period: 07/17/2016 : 4 Para: 3 Reviewed Nursing Documentation: PMH: Agreed, PSxH: Agreed Nursing Documentation-PMH Hx Cardiac Problems: No Hx Cancer: No Hx Gastrointestinal Problems: No Hx Neurological Problems: No Review of Systems All Other Systems: negative except mentioned in HPI Physical Exam Vital Signs Date Time Temp Pulse Resp B/P Pulse Ox O2 Delivery O2 Flow Rate FiO2 08/05/16 14:35 97.2 62 16 128/74 99 Room Air Sp02 EP Interpretation: reviewed, normal General Appearance: well appearing, no apparent distress Head: normocephalic, atraumatic Eyes: bilateral eye PERRL ENT: normal pharynx, no angioedema, normal voice Neck: supple Musculoskeletal: normal inspection Neurologic: alert, oriented x3, responsive Skin: normal color Lymphatic: normal inspection Medical Decision Making Diagnostic Impression: Primary Impression: medical screening evaluation ER Course There appears to have been a missing medication Patient reports that she does not have a primary physician And was inquiring if she was able to utilize the hospital for primary physician The patient's disposition papers show followup with primary medical physician for followup on chest x-ray and blood work I discussed this with the patient and the patient's daughter, that this is meant to be followed up by an outpatient physician There was still some confusion regarding this, the patient's daughter states that she does not have a primary physician She was provided with a list of clinics and physicians and requires close outpatient followup Last Vital Signs Date Time Temp Pulse Resp B/P Pulse Ox O2 Delivery O2 Flow Rate FiO2 08/05/16 14:35 97.2 62 16 128/74 99 Room Air Status: unchanged Disposition: HOME, SELF-CARE Condition: Stable Referrals: NOT CHOSEN IPA/MD,REFERRING (PCP) Patient Instructions: Medical Screening Exam Additional Instructions: Patient is provided with the discharge instructions notified to follow up with primary doctor in the next 2-3 days otherwise return to the er with any worsening symptoms. Please note that this report is being documented using [employer] technology. This can lead to erroneous entry secondary to incorrect interpretation by the dictating instrument. TA HOPKINS D.O. Aug 05, 2016 17:56
== END 2016-08-05 19:00 | disposition home or self-care (01) ==
LOC: EMR 16:24
DX: Z00.00 Encounter for general adult medical examination without abnormal findings (principal)
CPT/HCPCS: 99281

== ENCOUNTER 2016-08-12 14:10 | Emergency (ER) | payer MEDICAID ==
[~2016-08-12] VITALS: Ht 144.8 cm; Wt 47.6 kg
[2016-08-12 14:42] VITALS: BP 105/66
--- NOTE | 2016-08-12 15:24 | Diagnostic Imaging Report ---
Indications: Shortness of breath Technique: Portable AP chest Findings: Comparison: 07/22/2016 Inspiratory effort has improved. Focal opacity persists in the basal aspect of the lingula. Lungs and pleura are otherwise clear. Heart size, pulmonary vasculature remain within normal limits. IMPRESSION: Persistent lingular opacity demonstrated on multiple prior chest radiographs and thoracic CT scans, likely infectious/ inflammatory No evidence of new cardiopulmonary disease
[2016-08-12 16:43] LABS: BASOPHILS % (AUTO) 1.2 % (0.0-2.0); EOSINOPHILS % (AUTO) 2.1 % (0.0-3.0); LYMPHOCYTES % (AUTO) 35.3 % (20.0-45.0); MEAN CORPUSCULAR HEMOGLOBIN 29.5 PG (27.0-31.0); MEAN CORPUSCULAR HGB CONC 32.6 G/DL (32.0-36.0); MEAN CORPUSCULAR VOLUME 90 FL (80-99); MEAN PLATELET VOLUME 7.9 FL (6.5-10.1); MONOCYTES % (AUTO) 8.1 % (1.0-10.0); NEUTROPHILS % (AUTO) 53.4 % (45.0-75.0); PLATELET COUNT 193 K/UL (150-450); RED BLOOD COUNT 4.01 M/UL (4.20-5.40); RED CELL DISTRIBUTION WIDTH 16.2 % (11.6-14.8); WHITE BLOOD COUNT 8.1 K/UL (4.8-10.8)
[2016-08-12 16:58] LABS: ALANINE AMINOTRANSFERASE 47 U/L (3-33); ALBUMIN/GLOBULIN RATIO 1.2 (1.0-2.7); ANION GAP 14 (5-15); ASPARTATE AMINO TRANSFERASE 31 U/L (5-40); CALCIUM 8.9 mg/dL (8.6-10.2); CARBON DIOXIDE 25 mEQ/L (20-30); CHLORIDE 98 mEQ/L (98-107); CREATININE 0.8 mg/dL (0.5-0.9); GLOMERULAR FILTRATION RATE > 60 mL/min (>60); HEMOLYSIS 8; POTASSIUM 4.1 mEQ/L (3.4-4.9); SODIUM 137 mEQ/L (135-145); TOTAL PROTEIN 6.6 g/dL (6.6-8.7)
[2016-08-12 17:30] VITALS: BP 105/66
--- NOTE | 2016-08-14 03:30 | Emergency Room Report ---
History of Present Illness General Chief Complaint: Pain Source: Patient Present Illness HPI Patient presents with complaints of pain to the left lower chest area Radiation to the shoulder and left arm Patient had a recent hospitalization with significant pneumonia Patient had previously also return for regular followup Since then the patient has been able to followup with an outpatient facility However now with the new discomfort patient was concerning came to the ER Denies any shortness of breath she has had mild continued cough Patient points fairly specifically to the left mid clavicular lower anterior rib cage area just below the breast, denies any other fall or trauma Allergies: Coded Allergies: No Known Allergies (Unverified , 07/12/16) Patient History Past Medical History: see triage record Pertinent Family History: none Last Menstrual Period: 07/17/16 Now: No Reviewed Nursing Documentation: PMH: Agreed, PSxH: Agreed Nursing Documentation-PMH Past Medical History: No History, Except For Hx Cancer: No Hx Gastrointestinal Problems: No Hx Neurological Problems: No Review of Systems All Other Systems: negative except mentioned in HPI Physical Exam Vital Signs Date Time Temp Pulse Resp B/P Pulse Ox O2 Delivery O2 Flow Rate FiO2 08/12/16 14:32 99.3 64 14 105/66 100 Room Air Sp02 EP Interpretation: reviewed, normal General Appearance: well appearing, no apparent distress Head: normocephalic, atraumatic Eyes: bilateral eye EOMI, bilateral eye PERRL ENT: hearing grossly normal, normal pharynx, TMs + canals normal, uvula midline Neck: full range of motion, supple, no meningismus, no bony tend Respiratory: lungs clear, normal breath sounds, no rhonchi, no respiratory distress, no retraction, no accessory muscle use Cardiovascular #1: normal peripheral pulses, regular rate, rhythm, no edema, no gallop, no JVD, no murmur Gastrointestinal: normal bowel sounds, non tender, soft, no mass, no organomegaly, non-distended, no guarding, no hernia, no pulsatile mass, no rebound Genitourinary: no CVA tenderness Musculoskeletal: normal inspection Neurologic: oriented x3, responsive, superintendent measurement III-XII nml as tested, motor strength/ tone normal, sensory intact Psychiatric: mood/affect normal Skin: normal color, no rash, warm/dry, palpation normal Lymphatic: normal inspection, no adenopathy Medical Decision Making Diagnostic Impression: Primary Impression: chest pain ER Course Patient is a fairly complex patient with multiple differential to consideration including but not limited to cardiac cardiopulmonary and vascular emergencies Patient's blood work is at baseline levels chest x-ray shows improved and stable findings from previous Patient is continued on medications for the antifungal pathology And at this time is stable for continued close outpatient follow Labs Test 08/12/16 16:16 White Blood Count 8.1 K/UL (4.8-10.8) Red Blood Count 4.01 M/UL (4.20-5.40) Hemoglobin 11.8 G/DL (12.0-16.0) Hematocrit 36.2 % (37.0-47.0) Mean Corpuscular Volume 90 FL (80-99) Mean Corpuscular Hemoglobin 29.5 PG (27.0-31.0) Mean Corpuscular Hemoglobin Concent 32.6 G/DL (32.0-36.0) Red Cell Distribution Width 16.2 % (11.6-14.8) Platelet Count 193 K/UL (150-450) Mean Platelet Volume 7.9 FL (6.5-10.1) Neutrophils (%) (Auto) 53.4 % (45.0-75.0) Lymphocytes (%) (Auto) 35.3 % (20.0-45.0) Monocytes (%) (Auto) 8.1 % (1.0-10.0) Eosinophils (%) (Auto) 2.1 % (0.0-3.0) Basophils (%) (Auto) 1.2 % (0.0-2.0) Sodium Level 137 mEQ/L (135-145) Potassium Level 4.1 mEQ/L (3.4-4.9) Chloride Level 98 mEQ/L (98-107) Carbon Dioxide Level 25 mEQ/L (20-30) Anion Gap 14 (5-15) Blood Urea Nitrogen 22 mg/dL (7-23) Creatinine 0.8 mg/dL (0.5-0.9) Estimat Glomerular Filtration Rate > 60 mL/min (>60) Glucose Level 129 mg/dL (74-106) Calcium Level 8.9 mg/dL (8.6-10.2) Total Bilirubin 0.2 mg/dL (0.0-1.2) Aspartate Amino Transf (AST/SGOT) 31 U/L (5-40) Alanine Aminotransferase (ALT/SGPT) 47 U/L (3-33) Alkaline Phosphatase 131 U/L (35-104) Total Protein 6.6 g/dL (6.6-8.7) Albumin 3.7 g/dL (3.5-5.2) Globulin 2.9 g/dL Albumin/Globulin Ratio 1.2 (1.0-2.7) EKG Diagnostic Results Rate: normal Rhythm: NSR ST Segments: no acute changes Rhythm Strip Diag. Results EP Interpretation: yes Rate: 77 Rhythm: NSR, no PVC's, no ectopy Chest X-Ray Diagnostic Results EP Interpretation: Yes Findings: no effusion, no pneumothorax, other - Similar findings to previous no obvious additional focal infiltrates, Number of Views: 1 Last Vital Signs Date Time Temp Pulse Resp B/P Pulse Ox O2 Delivery O2 Flow Rate FiO2 08/12/16 17:30 99.3 14 105/66 100 Room Air 08/12/16 14:32 64 Status: improved Disposition: HOME, SELF-CARE Condition: Improved Referrals: NOT CHOSEN IPA/MD,REFERRING (PCP) Patient Instructions: Nonspecific Chest Pain, [id number] Additional Instructions: Patient is provided with the discharge instructions notified to follow up with primary doctor in the next 2-3 days otherwise return to the er with any worsening symptoms. Please note that this report is being documented using [employer] technology. This can lead to erroneous entry secondary to incorrect interpretation by the dictating instrument. TA HOPKINS D.O. Aug 14, 2016 03:30
--- NOTE | 2016-08-14 23:33 | Cardiology Report ---
APPROVED REPORT EKG Measurement Heart [id number] Normal sinus rhythm Possible Left atrial enlargement Borderline ECG
== END 2016-08-12 17:31 | disposition home or self-care (01) ==
LOC: EMR 16:08
DX: R07.9 Chest pain, unspecified (principal)
CPT/HCPCS: 36415; 71010; 80053; 85025; 93005; 99283